=== PATIENT | male | born 1955 | race Caucasian/White ===

== ENCOUNTER 2016-09-14 05:19 | Inpatient (IN) | payer MEDICARE ==
[2016-09-14] VITALS (17 sets, daily range): BP systolic 81–151; BP diastolic 45–88
[~2016-09-14] VITALS: Ht 180.3 cm; Wt 60.8 kg
[~2016-09-14 05:19] MED LIST: ALBU1.25 IH; GABA800T2 PO; LEVO750T9 PO; PRED10TA22 PO
--- OUTSIDE RECORDS SUMMARY | 2016-09-14 05:23 | XMS REPORT | Continuity of Care Document ---
Author Author [facility] Organization [facility] Address Unknown Phone Unavailable Care Team Providers Care Eligibility And Occupancy Interviewer Name Role Phone NO, LOCAL PHYSICIAN PCP Unavailable Insurance Providers Payer Name Policy Number Subscriber Name Relationship [employer] [id number] Nirmal Shah 19 Self / Same As Patient Advance Directives Directive Response Recorded Date/Time Advance Directives No 06/28/16 11:15pm Organ Donor No 06/28/16 11:15pm Resuscitation Status Full Code 06/28/16 11:15pm Chief Complaint and Reason for Visit Chief Complaint COPD EXACERBATION Reason for Visit Asthma exacerbation in COPD Problems Active Problems Medical Problem Onset Date Status Asthma exacerbation in COPD Unknown Acute Medications Current Home Medications Medication Dose Units Route Directions Days/Qty Instructions Start Date Levofloxacin 750 Mg 750 Mg Oral Daily 5 06/29/16 Prednisone 10 Mg 10 Mg Oral Daily 42 Take 6 tabs(60mg)daily,decrease by 1 tab(10mg)every other day. 06/29/16 Albuterol Sulfate 1.25 Mg/3 Ml 1.25 Mg Inhalation Every 6 Hours 60 Past Home Medications Medication Directions Ordered Status Gabapentin 800 Mg Tablet, 800 Mg Oral 06/28/16 Discontinued Social History Social History Problem Response Recorded Date/Time Alcohol Use Denies Use 06/28/2016 11:15pm Recreational Drug Use No 06/28/2016 11:15pm Recent Foreign Travel No 06/28/2016 11:15pm Recent Infectious Disease Exposure No 06/28/2016 11:15pm Hospitalization with Isolation Denies 06/29/2016 1:03pm Smoking Status Current Everyday Smoker 06/28/2016 11:15pm Type Used Cigarettes 06/29/2016 1:03pm Recent Hopitalizations Yes 06/28/2016 11:15pm Hospitalization with Isolation Denies 06/29/2016 1:03pm Query Response Start Date Stop Date Smoking Status Current Everyday Smoker Hospital Discharge Instructions Patient Instructions Physician Instructions New, Converted or Re-Newed RX: Transmitted to Pharmacy Patient Instructions: Maintain O2 at home Take breathing treatments every 4- hours scheduled Stop smoking Discharge Diet: No Restrictions Activity as Tolerated: Yes Care Plan Patient Instructions:: Maintain O2 at homeTake breathing treatments every 4- hours scheduledStop smoking Plan of Care Discharge Date 06/29/16 1:03pm Disposition 01 HOME, SELF-CARE Instructions/Education Provided Chronic Obstructive Pulmonary Disease (GEN) Prescriptions See Medication Section Care Plan and Goals See Discharge Instructions Section Functional Status Query Response Date Recorded Patient Orientation Person Place Time Situation June 29, 2016 1:03pm Comprehension Ability Understands Concepts June 29, 2016 9:33am Allergies, Adverse Reactions, Alerts No known allergies. Immunizations Name Given Type FLU TRIvalent 5 years - Adult 06/29/16 Administered Vital Signs Acute Vital Signs Vital Response Date/Time Temperature (Fahrenheit) 96.0 degrees F (97.6 - 99.5) 06/29/2016 1:00pm Temperature (Calculated Celsius) 35.37890 degrees C (36.4 - 37.5) 06/29/2016 8:19am Temperature Source Tympanic 06/29/2016 1:00pm Pulse Rate (adult) 72 bpm (60 - 90) 06/29/2016 1:00pm Respiratory Rate 18 bpm (12 - 24) 06/29/2016 1:00pm O2 Sat by Pulse Oximetry 95 % (88 - 100) 06/29/2016 1:00pm Blood Pressure 108/56 mm Hg 06/29/2016 1:00pm Blood Pressure Mean 73 mm Hg 06/29/2016 8:19am Pain Numeric Pain Scale 0-No Pain 06/29/2016 1:00pm Height (Feet) 5 feet 06/28/2016 11:15pm Height (Inches) 11.00 inches 06/28/2016 11:15pm Height (Calculated Centimeters) 180.360403 cm 06/28/2016 11:15pm Weight (Pounds) 126 pounds 06/29/2016 12:34am Weight (Ounces) 5.0 oz 06/29/2016 12:34am Weight (Calculated Grams) 46444.387 gm 06/29/2016 12:34am Weight (Calculated Kilograms) 57.902694 kilograms 06/29/2016 12:34am Calculated BMI 17.6 06/28/2016 11:15pm Capillary Refill Capillary Refill Less Than 3 Seconds 06/29/2016 9:33am Results Laboratory Results Test Name Result Units Flags Reference Collection Date/Time Result Date/ Time Comments White Blood Count 9.5 10^3/uL 4.3-11.0 06/28/2016 9:13pm 06/28/2016 9: 23pm Red Blood Count 5.38 10^6/uL 4.35-5.85 06/28/2016 9:13pm 06/28/2016 9: 23pm Hemoglobin 15.8 G/DL 13.3-17.7 06/28/2016 9:13pm 06/28/2016 9:23pm Hematocrit 46 % 40-54 06/28/2016 9:13pm 06/28/2016 9:23pm Mean Corpuscular Volume 86 FL 80-99 06/28/2016 9:13pm 06/28/2016 9: 23pm Mean Corpuscular Hemoglobin 29 PG 25-34 06/28/2016 9:13pm 06/28/2016 9: 23pm Mean Corpuscular Hemoglobin Concent 34 G/DL 32-36 06/28/2016 9:13pm 9:23pm Red Cell Distribution Width 14.0 % 10.0-14.5 06/28/2016 9:13pm 2015 9:23pm Platelet Count 207 10^3/uL 130-400 06/28/2016 9:13pm 06/28/2016 9:23pm Mean Platelet Volume 10.0 FL 7.4-10.4 06/28/2016 9:13pm 06/28/2016 9: 23pm Neutrophils (%) (Auto) 60 % 42-75 06/28/2016 9:13pm 06/28/2016 9:23pm Lymphocytes (%) (Auto) 21 % 12-44 06/28/2016 9:13pm 06/28/2016 9:23pm Monocytes (%) (Auto) 9 % 0-12 06/28/2016 9:13pm 06/28/2016 9:23pm Eosinophils (%) (Auto) 9 % 0-10 06/28/2016 9:13pm 06/28/2016 9:23pm Basophils (%) (Auto) 1 % 0-10 06/28/2016 9:13pm 06/28/2016 9:23pm Neutrophils # (Auto) 5.7 X 10^3 1.8-7.8 06/28/2016 9:13pm 06/28/2016 9: 23pm Lymphocytes # (Auto) 2.0 X 10^3 1.0-4.0 06/28/2016 9:13pm 06/28/2016 9: 23pm Monocytes # (Auto) 0.8 X 10^3 0.0-1.0 06/28/2016 9:13pm 06/28/2016 9: 23pm Eosinophils # (Auto) 0.9 10^3/uL H 0.0-0.3 06/28/2016 9:13pm 06/28/2016 9 :23pm Basophils # (Auto) 0.1 10^3/uL 0.0-0.1 06/28/2016 9:13pm 06/28/2016 9: 23pm Urine Color YELLOW 06/29/2016 12:25am 06/29/2016 12:50am Urine Clarity CLEAR 06/29/2016 12:25am 06/29/2016 12:50am Urine pH 6.5 5-9 06/29/2016 12:25am 06/29/2016 12:50am Urine Specific [place] 1.015 * 1.016-1.022 06/29/2016 12:25am 2015 12:50am Urine Protein 2+ * NEGATIVE 06/29/2016 12:25am 06/29/2016 12:50am Urine Glucose (UA) 2+ * NEGATIVE 06/29/2016 12:25am 06/29/2016 12:50am Urine RBC (Auto) NEGATIVE NEGATIVE 06/29/2016 12:25am 06/29/2016 12: 50am Urine Ketones 1+ * NEGATIVE 06/29/2016 12:25am 06/29/2016 12:50am Urine Nitrite NEGATIVE NEGATIVE 06/29/2016 12:25am 06/29/2016 12: 50am Urine Bilirubin NEGATIVE NEGATIVE 06/29/2016 12:25am 06/29/2016 12: 50am Urine Urobilinogen 1 MG/DL NORMAL 06/29/2016 12:25am 06/29/2016 12: 50am Urine Leukocyte Esterase 1+ * NEGATIVE 06/29/2016 12:25am 06/29/2016 12 :50am Urine RBC RARE /HPF 06/29/2016 12:25am 06/29/2016 12:50am Urine WBC 2-5 /HPF 06/29/2016 12:25am 06/29/2016 12:50am Urine Bacteria TRACE /HPF 06/29/2016 12:25am 06/29/2016 12:50am Urine Squamous Epithelial Cells 0-2 /HPF 06/29/2016 12:25am 2015 12:50am Urine Crystals NONE /LPF 06/29/2016 12:25am 06/29/2016 12:50am Urine Casts PRESENT /LPF 06/29/2016 12:25am 06/29/2016 12:50am Urine Hyaline Casts RARE /LPF 06/29/2016 12:25am 06/29/2016 12:50am Urine Mucus SMALL /LPF * 06/29/2016 12:25am 06/29/2016 12:50am Urine Culture Indicated NO 06/29/2016 12:25am 06/29/2016 12:50am Sodium Level 138 MMOL/L 135-145 06/28/2016 9:13pm 06/28/2016 9:44pm Potassium Level 4.2 MMOL/L 3.6-5.0 06/28/2016 9:13pm 06/28/2016 9:44pm Chloride Level 108 MMOL/L H 98-107 06/28/2016 9:13pm 06/28/2016 9:44pm Carbon Dioxide Level 24 MMOL/L -32 06/28/2016 9:13pm 06/28/2016 9: 44pm Anion Gap 6 MMOL/L 5-14 06/28/2016 9:13pm 06/28/2016 9:44pm Blood Urea Nitrogen 13 MG/DL 7-18 06/28/2016 9:13pm 06/28/2016 9:44pm Creatinine 0.90 MG/DL 0.60-1.30 06/28/2016 9:13pm 06/28/2016 9:44pm BUN/Creatinine Ratio 14 06/28/2016 9:13pm 06/28/2016 9:44pm Estimat Glomerular Filtration Rate > 60 06/28/2016 9:13pm 2015 9:44pm GFR INTERPRETIVE DATA UNITS FOR ESTIMATED GFR (eGFR): mL/min/1.73 M2 REFERENCE RANGE FOR ESTIMATED GFR (eGFR) eGFR NORMAL eGFR >60 MODERATELY DECREASED eGFR 30-59 SEVERLY DECREASED eGFR 15-29 KIDNEY FAILURE <15 (OR DIALYSIS) Glucose Level 128 MG/DL H 70-105 06/28/2016 9:13pm 06/28/2016 9:44pm Calcium Level 8.3 MG/DL L 8.5-10.1 06/28/2016 9:13pm 06/28/2016 9:44pm Total Bilirubin 0.4 MG/DL 0.1-1.0 06/28/2016 9:13pm 06/28/2016 9:44pm Alkaline Phosphatase 57 U/L 40-136 06/28/2016 9:13pm 06/28/2016 9:44pm Aspartate Amino Transf (AST/SGOT) 15 U/L 5-34 06/28/2016 9:13pm 2015 9:44pm Alanine Aminotransferase (ALT/SGPT) 19 U/L 0-55 06/28/2016 9:13pm 06/28 9:44pm Total Protein 6.2 G/DL L 6.4-8.2 06/28/2016 9:13pm 06/28/2016 9:44pm Albumin 3.7 G/DL 3.2-4.5 06/28/2016 9:13pm 06/28/2016 9:44pm Arterial Blood pH 7.34 CL 7.37-7.43 06/28/2016 9:44pm 06/28/2016 9: 58pm RESULTS CALLED TO FELIPE AT 2157. RESULTS READ BACK: YES. Arterial Blood Partial Pressure CO2 46 MMHG H 35-45 06/28/2016 9:44pm 9:58pm Arterial Blood Partial Pressure O2 88 MMHG 79-93 06/28/2016 9:44pm 9:58pm Arterial Blood HCO3 24 MMOL/L 23-27 06/28/2016 9:44pm 06/28/2016 9: 58pm Arterial Blood Total CO2 25.1 MMOL/L 21.0-31.0 06/28/2016 9:44pm 2015 9:58pm Arterial Blood Base Excess -2.4 MMOL/L -2.5-2.5 06/28/2016 9:44pm 06/28 9:58pm Arterial Blood Oxygen Saturation 97 % 94-100 06/28/2016 9:44pm 2015 9:58pm Blood Gas Puncture Site LT RAD 06/28/2016 9:44pm 06/28/2016 9:58pm Last Test YES-POS 06/28/2016 9:44pm 06/28/2016 9:58pm Blood Gas Inspired Oxygen 2L 06/28/2016 9:44pm 06/28/2016 9:58pm Blood Gas Ventilator Setting NO 06/28/2016 9:44pm 06/28/2016 9: 58pm Blood Gas Patient Temperature 98.7 06/28/2016 9:44pm 06/28/2016 9: 58pm Procedures Procedure Status Date Provider(s) Tracing only of electrocardiogram Active 06/28/16 PRICILLA [employer] Encounters Encounter Location Arrival/Admit Date Discharge/Depart Date Attending Provider Discharged Inpatient (obs) [facility] 06/28/16 10:40pm 06/29/16 1:03pm MARYLOU DUNN DO Recent Diagnosis Asthma exacerbation in COPD
[2016-09-14] MEDS ORDERED: GABA-490 PO (05:29)
[2016-09-14] MEDS ORDERED: RT-ALBUTEROL/IPRATROPIUM 3 ML (DUONEB) VIAL INH ONE (05:30)
[2016-09-14] MEDS ORDERED: DEXAMETHASONE 4 MG/ML SDV (DECADRON) IH ONE (05:30)
[2016-09-14] MEDS ORDERED: methylPREDNISolone 125 MG (Solu-MEDROL) VIAL IVP ONE (05:30)
[2016-09-14 05:33] LABS: BASOPHILS # (AUTO) 0.1 10^3/uL (0.0-0.1); BASOPHILS % (AUTO) 1 % (0-10); EOSINOPHILS # (AUTO) 0.7 10^3/uL (0.0-0.3); EOSINOPHILS % (AUTO) 7 % (0-10); LYMPHOCYTES # (AUTO) 2.2 X 10^3 (1.0-4.0); LYMPHOCYTES % (AUTO) 24 % (12-44); MEAN CORPUSCULAR HEMOGLOBIN 29 PG (25-34); MEAN CORPUSCULAR HGB CONC 34 G/DL (32-36); MEAN CORPUSCULAR VOLUME 86 FL (80-99); MEAN PLATELET VOLUME 10.3 FL (7.4-10.4); MONOCYTES # (AUTO) 0.8 X 10^3 (0.0-1.0); MONOCYTES % (AUTO) 8 % (0-12); NEUTROPHILS # (AUTO) 5.5 X 10^3 (1.8-7.8); NEUTROPHILS % (AUTO) 60 % (42-75); PLATELET COUNT 232 10^3/uL (130-400); RED BLOOD COUNT 5.52 10^6/uL (4.35-5.85); RED CELL DISTRIBUTION WIDTH 13.4 % (10.0-14.5); WHITE BLOOD COUNT 9.1 10^3/uL (4.3-11.0)
--- NOTE | 2016-09-14 05:36 | ED Respiratory ---
General Chief Complaint: Respiratory Problems Stated Complaint: SOA Nursing Triage Note: Pt to ED via [facility] from home. Pt c/o SOA starting around 0400 this morning. Pt reports taking neb treatment at home w/ no relief. Pt has hx COPD. Source: patient (TREVOR TIDWELL ) History of Present Illness Time seen by provider: 05:15 Initial Comments PT ARRIVES VIA [facility] FROM HOME C/O SHORTNESS OF BREATH SINCE WAKING APPROXIMATELY 1 1/2 HOURS AGO PT HAD A NEBULIZER TREATMENT WITH ALBUTEROL AT HOME PRIOR TO EMS ARRIVAL. NO FURTHER TREATMENT WAS GIVEN BY EMS PT HAS COPD AND CONTINUES TO SMOKE 1 - 2 1/2 PPD PT HAS HOME O2 WHICH HE USES ONLY AT NIGHT PT HAS HAD A PRODUCTIVE COUGH OF UNKNOWN COLORED SPUTUM PT C/O CHEST DISCOMFORT DUE TO BREATHING DIFFICULTY NO FEVER HAS HISTORY OF SAME MULTIPLE TIMES PT WAS ADMITTED IN [place] FOR COPD EXACERBATION WITH HYPOXIA [facility]--HAS NOT BEEN THERE IN A LONG TIME, BUT GETS ALL OF HIS MEDICATIONS THROUGH THERE (TREVOR TIDWELL DO) Allergies and Home Medications Allergies Coded Allergies: No Known Drug Allergies (Verified , 04/29/07) Home Medications Albuterol Sulfate 1.25 Mg/3 Ml Vial.neb #60 1.25 MG IH Q6H Prescribed by: MARYLOU DUNN on 06/29/16 1233 Gabapentin 400 Mg Capsule Unknown Dose PO DAILY (Reported) Constitutional: no symptoms reported EENTM: no symptoms reported Respiratory: see HPI cough short of breath Cardiovascular: see HPI chest pain Gastrointestinal: no symptoms reported Genitourinary: no symptoms reported Musculoskeletal: no symptoms reported Skin: no symptoms reported Psychiatric/Neurological: No Symptoms Reported Hematologic/Lymphatic: No Symptoms Reported Immunological/Allergic: no symptoms reported (TREVOR TIDWELL DO) Past Cisvrpk-Luvjus-Iouxtq Hx Patient Social History Alcohol Use: Past History (HISTORY OF ABUSE--12 PACK EVERY 1-2 DAYS.) Recreational Drug Use: No (DENIES) Smoking Status: Current Everyday Smoker (UP TO 2 1/2 PPD) Type Used: Cigarettes Recent Foreign Travel: No Contact w/Someone Who Travel: No Recent Infectious Disease Expo: No Recent Hopitalizations: No Physical Abuse Screen: No Sexual Abuse: No (TREVOR TIDWELL DO) Immunizations Up To Date Tetanus Booster (TDap): Less than 5yrs (DIANN,TREVOR K DO) Seasonal Allergies Seasonal Allergies: No (DIANN,TREVOR K DO) Surgeries HX Surgeries: Yes (RIGHT ARM--ABOVE ELBOW TRAUMATIC AMPUTATION 2006) Surgeries: Amputation, Orthopedic, Tonsillectomy (DIANN,TREVOR K DO) Respiratory Hx Respiratory Disorders: Yes Respiratory Disorders: Pneumonia, COPD, Emphysema (DIANN,TREVOR K DO) Cardiovascular Hx Cardiac Disorders: No (DIANN,TREVOR K DO) Neurological Hx Neurological Disorders: Yes Neurological Disorders: Neuropathy (DIANN,TREVOR K DO) Reproductive System Hx Reproductive Disorders: No (DIANN,TREVOR K DO) Genitourinary Hx Genitourinary Disorders: No (DIANN,TREVOR K DO) Gastrointestinal Hx Gastrointestinal Disorders: No (DIANN,TREVOR K DO) Musculoskeletal Hx Musculoskeletal Disorders: Yes (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) Musculoskeletal Disorders: Amputee (DIANN,TREVOR K DO) Endocrine Hx Endocrine Disorders: No (DIANN,TREVOR K DO) HEENT HX ENT Disorders: No (DIANN,TREVOR K DO) Cancer Hx Cancer: No (DIANN,TREVOR K DO) Psychosocial Hx Psychiatric Problems: No (DIANN,TREVOR K DO) Integumentary HX Skin/Integumentary Disorder: No (DIANN,TREVOR K DO) Blood Transfusions Hx Blood Disorders: No (DIANN,TREVOR K DO) Family Medical History Family Medial History: Alzheimer's disease 19 MOTHER Asthma 19 MOTHER (DIANN,TREVOR K DO) Family Medial History: Alzheimer's disease 19 MOTHER Asthma 19 MOTHER (HEVER MARR MD) Physical Exam Vital Signs Vital Sign - Last 12Hours 09/14/16 09/14/16 05:19 05:21 Temp 98.4 Pulse 89 Resp 18 B/P 136/92 Pulse Ox 96 O2 Delivery Nasal Cannula O2 Flow Rate 3 (HEVER MARR MD) Vital Signs Capillary Refill : Less Than 3 Seconds (DIANN,TREVOR K DO) General Appearance: cachetic moderate distress other (DIRTY, MALODOROUS, UNKEMPT, ODOR OF OLD URINE AND REEKS OF CIGARETTES, MODERATE DYSPNEA, BUT CAN TALK IN SHORT SENTENCES) thin HEENT: PERRL/EOMI (GLASSES) Neck: normal inspection Respiratory: respiratory distress (MILD TO MODERATE) decreased breath sounds accessory muscle use wheezing (DIFFUSE BILATERAL WHEEZING) Cardiovascular: normal peripheral pulses regular rate, rhythm no edema no JVD no murmur Gastrointestinal: normal bowel sounds non tender soft Extremities: normal inspection no pedal edema no calf tenderness normal capillary refill 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 as tested no motor/sensory deficits alert oriented x 3 other (ANXIOUS) Skin: normal color warm/dry (DIANN,TREVOR K DO) Progress/Results/Core Measures Results/Orders Lab Results Laboratory Tests Test 09/14/16 05:21 09/14/16 05:48 09/14/16 06:00 Range/Units Activated Partial Thromboplast Time 20 L 24-35 SEC Alanine Aminotransferase (ALT/SGPT) 16 0-55 U/L Albumin 4.1 3.2-4.5 G/DL Alkaline Phosphatase 58 40-136 U/L Anion Gap 13 5-14 MMOL/L Aspartate Amino Transf (AST/SGOT) 16 5-34 U/L B-Type Natriuretic Peptide 19.4 <100.0 PG/ML BUN/Creatinine Ratio 19 Basophils # (Auto) 0.1 0.0-0.1 10^3/uL Basophils (%) (Auto) 1 0-10 % Blood Urea Nitrogen 19 H 7-18 MG/DL Calcium Level 8.7 8.5-10.1 MG/DL Carbon Dioxide Level 24 21-32 MMOL/L Chloride Level 104 98-107 MMOL/L Creatine Kinase MB 4.4 <6.6 NG/ML Creatinine 0.98 0.60-1.30 MG/DL Eosinophils # (Auto) 0.7 H 0.0-0.3 10^3/uL Eosinophils (%) (Auto) 7 0-10 % Estimat Glomerular Filtration Rate > 60 Glucose Level 119 H 70-105 MG/DL Hematocrit 47 40-54 % Hemoglobin 16.2 13.3-17.7 G/DL INR Comment 1.0 0.8-1.4 Lymphocytes # (Auto) 2.2 1.0-4.0 X 10^3 Lymphocytes (%) (Auto) 24 12-44 % Magnesium Level 2.5 H 1.8-2.4 MG/DL Mean Corpuscular Hemoglobin 29 25-34 PG Mean Corpuscular Hemoglobin Concent 34 32-36 G/DL Mean Corpuscular Volume 86 80-99 FL Mean Platelet Volume 10.3 7.4-10.4 FL Monocytes # (Auto) 0.8 0.0-1.0 X 10^3 Monocytes (%) (Auto) 8 0-12 % Neutrophils # (Auto) 5.5 1.8-7.8 X 10^3 Neutrophils (%) (Auto) 60 42-75 % Platelet Count 232 130-400 10^3/uL Potassium Level 3.7 3.6-5.0 MMOL/L Prothrombin Time 13.3 12.2-14.7 SEC Red Blood Count 5.52 4.35-5.85 10^6/uL Red Cell Distribution Width 13.4 10.0-14.5 % Sodium Level 141 135-145 MMOL/L TSH [place] Testing 0.96 0.35-4.94 UIU/ML Total Bilirubin 0.5 0.1-1.0 MG/DL Total Creatine Kinase 162 30-200 U/L Total Protein 6.8 6.4-8.2 G/DL White Blood Count 9.1 4.3-11.0 10^3/uL Last Test YES-POS Arterial Blood Base Excess 0.7 -2.5-2.5 MMOL/L Arterial Blood HCO3 32 H 23-27 MMOL/L Arterial Blood Oxygen Saturation 87 L 94-100 % Arterial Blood Partial Pressure CO2 84 *H 35-45 MMHG Arterial Blood Partial Pressure O2 63 L 79-93 MMHG Arterial Blood Total CO2 34.3 H 21.0-31.0 MMOL/L Arterial Blood pH 7.20 *L 7.37-7.43 Blood Gas Inspired Oxygen 3L Blood Gas Patient Temperature 98.7 Blood Gas Puncture Site RIGHT RADIAL Blood Gas Ventilator Setting NO Lactic Acid Level 1.7 0.5-2.0 MMOL/L (HEVER MARR MD) Medications Given in ED Current Medications Medications Dose Ordered Sig/Selena Route Start Time Stop Time Status Last Admin Dose Admin Albuterol/ Ipratropium 3 ml ONCE ONCE INH 09/14/16 05:30 09/14/16 05:31 DC 09/14/16 05:37 3 ML Dexamethasone Sodium Phosphate 20 mg ONCE ONCE IH 09/14/16 05:30 09/14/16 05:31 DC 09/14/16 05:37 20 MG Lorazepam 1 mg 1 mg ONCE ONCE IVP 09/14/16 05:45 09/14/16 05:46 DC 09/14/16 05:44 1 MG Methylprednisolone Sodium Succinate 125 mg ONCE ONCE IVP 09/14/16 05:30 09/14/16 05:31 DC 09/14/16 05:34 125 MG Sodium Chloride 250 ml @ 0 mls/hr Q0M ONCE IV 09/14/16 05:52 09/14/16 05:53 DC 09/14/16 05:52 999 MLS/HR (HEVER MARR MD) Vital Signs/I&O Vital Sign - Last 12Hours 09/14/16 09/14/16 09/14/16 09/14/16 05:19 05:21 05:38 05:57 Temp 98.4 Pulse 89 104 Resp 18 25 B/P 136/92 Pulse Ox 96 96 97 98 O2 Delivery Nasal Cannula Room Air Nasal Cannula O2 Flow Rate 3 3 3 75 09/14/16 06:20 Pulse 101 Resp 19 O2 Flow Rate 75.00 (HEVER MARR MD) Blood Pressure Mean: 107 Progress Note : Progress Note PT BECAME VERY ANXIOUS AND 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 0600--CARE TURNED OVER TO DR. MARR. ALL STUDIES PENDING (TREVOR TIDWELL DO) ECG Initial ECG Impression Time: 05:33 Initial ECG Rate: 79 Initial ECG Rhythm: Normal Sinus Initial ECG Comparisson: Unchanged (TREVOR TIDWELL DO) Departure Communication Progress Notes 0659 patient shows signs of improvement. He appears much less anxious. He is tolerating his hour-long albuterol treatment well. Given his ABGs he will be admitted to the ICU. Have discussed with Dr. Dunn of the hospitalist service and she accepts in admission (HEVER MARR MD) Impression Impression: Primary Impression: Acute on chronic respiratory failure Disposition: ADMITTED INPATIENT Condition: Improved Decision to Admit Reason: Admit from ER (General) Decision to Admit/Date: Sep 14, 2016 Time/Decision to Admit Time: 07:02 (HEVER MARR MD) Departure-Patient Inst. Referrals: NO,LOCAL PHYSICIAN (PCP/Family) Primary Care Physician TREVOR TIDWELL DO Sep 14, 2016 05:36 HEVER MARR MD Sep 14, 2016 07:03
[2016-09-14 05:44] LABS: PROTHROMBIN TIME PATIENT 13.3 SEC (12.2-14.7)
[2016-09-14] MEDS ORDERED: NS (IVPB) 250 ML ONE (05:44)
[2016-09-14] MEDS ORDERED: LORazepam INJ 2 MG/ML (ATIVAN) VIAL IVP ONE (05:45)
[2016-09-14 05:50] LABS: ABG BASE EXCESS 0.7 MMOL/L (-2.5-2.5); ABG HCO3 32 MMOL/L (23-27); ABG OXYGEN SATURATION 87 % (94-100); ABG PO2 63 MMHG (79-93); ABG TCO2 34.3 MMOL/L (21.0-31.0)
[2016-09-14] MEDS ORDERED: NS (IVPB) 250 ML IV ONE (05:52)
[2016-09-14 05:53] LABS: ALANINE AMINOTRANSFERASE 16 U/L (0-55); ALBUMIN 4.1 G/DL (3.2-4.5); ANION GAP 13 MMOL/L (5-14); ASPARTATE AMINO TRANSFERASE 16 U/L (5-34); BILIRUBIN,TOTAL 0.5 MG/DL (0.1-1.0); BLOOD UREA NITROGEN 19 MG/DL (7-18); BUN/CREATININE RATIO 19; CALCIUM 8.7 MG/DL (8.5-10.1); CARBON DIOXIDE 24 MMOL/L (21-32); CHLORIDE 104 MMOL/L (98-107); CREATINE KINASE 162 U/L (30-200); CREATININE SERUM 0.98 MG/DL (0.60-1.30); GFR ESTIMATED > 60; GLUCOSE 119 MG/DL (70-105); MAGNESIUM 2.5 MG/DL (1.8-2.4); POTASSIUM 3.7 MMOL/L (3.6-5.0); SODIUM 141 MMOL/L (135-145); TOTAL PROTEIN 6.8 G/DL (6.4-8.2)
[2016-09-14 05:54] LABS: ABG PCO2 84 MMHG (35-45); ALLENS TEST YES-POS
[2016-09-14 05:55] LABS: PATIENT TEMP 98.7
--- NOTE | 2016-09-14 07:09 | Diagnostic Imaging Report ---
INDICATION: Severe shortness of breath. Portable chest 6:16 AM FINDINGS: Heart size and pulmonary vascularity are normal. Lungs are clear. There are no effusions or pneumothoraces. IMPRESSION: Negative chest. Dictated by: Dictated on workstation # [id number]
--- NOTE | 2016-09-14 07:47 | Pulmonary Consultation ---
History of Present Illness History of Present Illness Date of Consultation 09/14/16 07:41 Date of Admission History of Present Illness 61yo with hx of severe COPD oxygen dependent presented to ED via EMS secondary to worsening SOB that started around 0400. Pt did take home nebulizer which did not improve symptoms. Pt has had COPDAE in past with hospitalization 06/17. Pt is currently feeling better c/w admission. I am consulted for pulmonary management. Allergies and Home Medications Allergies Coded Allergies: No Known Drug Allergies (Verified , 04/29/07) Home Medications Albuterol Sulfate 1.25 Mg/3 Ml Vial.neb #60 1.25 MG IH Q6H Prescribed by: MARYLOU DUNN on 06/29/16 1233 Gabapentin 400 Mg Capsule Unknown Dose PO DAILY (Reported) Past Hordxbx-Xczcgy-Ivopbf Hx Patient Social History Alcohol Use: Past History (HISTORY OF ABUSE--12 PACK EVERY 1-2 DAYS.) Recreational Drug Use: No (DENIES) Smoking Status: Current Everyday Smoker (UP TO 2 1/2 PPD) Type Used: Cigarettes Recent Foreign Travel: No Contact w/Someone Who Travel: No Recent Infectious Disease Expo: No Recent Hopitalizations: No Physical Abuse Screen: No Sexual Abuse: No Immunizations Up To Date Tetanus Booster (TDap): Less than 5yrs Seasonal Allergies Seasonal Allergies: No Surgeries HX Surgeries: Yes (RIGHT ARM--ABOVE ELBOW TRAUMATIC AMPUTATION 2006) Surgeries: Amputation, Orthopedic, Tonsillectomy Respiratory Hx Respiratory Disorders: Yes Respiratory Disorders: Pneumonia, COPD, Emphysema Cardiovascular Hx Cardiac Disorders: No Neurological Hx Neurological Disorders: Yes Neurological Disorders: Neuropathy Reproductive System Hx Reproductive Disorders: No Genitourinary Hx Genitourinary Disorders: No Gastrointestinal Hx Gastrointestinal Disorders: No Musculoskeletal Hx Musculoskeletal Disorders: Yes (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) Musculoskeletal Disorders: Amputee Endocrine Hx Endocrine Disorders: No HEENT HX ENT Disorders: No Cancer Hx Cancer: No Psychosocial Hx Psychiatric Problems: No Integumentary HX Skin/Integumentary Disorder: No Blood Transfusions Hx Blood Disorders: No Family Medical History Family Medial History: Alzheimer's disease 19 MOTHER Asthma 19 MOTHER Exam Exam Vital Signs Date Time Temp Pulse Resp B/P Pulse Ox O2 Delivery O2 Flow Rate FiO2 09/14/16 06:20 101 19 75.00 09/14/16 05:57 104 25 98 75 09/14/16 05:38 97 Nasal Cannula 3 09/14/16 05:21 98.4 89 18 136/92 96 Room Air 3 09/14/16 05:19 96 Nasal Cannula 3 General Appearance: Moderate Distress Neck: Normal Inspection Non Tender Supple Respiratory: Accessory Muscle Use Decreased Breath Sounds Wheezing Capillary Refill: Less Than 3 Seconds Gastrointestinal: normal bowel sounds non tender soft Neurologic/Psychiatric: Oriented x3 Skin: Normal Color Warm/Dry Results Lab Laboratory Tests 09/14/16 05:21 Assessment/Plan Assessment/Plan COPDAE with acute on chronic respiratory failure -solumedrol 40 Q6 -SVNs -noninvasive ventilation Tobacco dependance -education DIMAS RIOS DO Sep 14, 2016 07:47
[2016-09-14] MEDS ORDERED: RT-ALBUTEROL/IPRATROPIUM 3 ML (DUONEB) VIAL INH PRN (08:00)
[2016-09-14] MEDS ORDERED: CATHETER FLUSH 10 ML SYR IV PRN (08:00)
[2016-09-14] MEDS: NS IV 1000 ML 1,000 ML IV SCH ×2 (08:54→18:58)
[2016-09-14] MEDS: methylPREDNISolone 40 MG/ML (Solu-MEDROL) VIAL IV SCH ×3 (08:54→20:08)
[2016-09-14] MEDS ORDERED: ALBU1.25 NEB (08:58)
--- NOTE | 2016-09-14 10:24 | History & Physical-Hospitalist ---
HPI History of Present Illness: HPI/Chief Complaint CC: Dyspnea HPI: This is a 61-year-old white male with no local physician even though I took care of him on the hospitalist service several months ago for exacerbation of COPD but he is not obtained a primary care provider as of yet that recently stop smoking as a New Year's resolution 2 weeks ago that maintains home oxygen at night and as needed but presented to the emergency room with reports of shortness of breath. He was very critical when he arrived in the ER was unable to even maintain nebulizer treatment cities placed on BiPAP and then had a 1 hour long nebulizer treatment which has improved the patient's status a great deal but still requiring BiPAP and Dr. Navarrete has been consulted. He denies any fever but just started having chills last night because as he went out and overall started feeling worse through the night. Source: patient Exam Limitations: clinical condition (biPAP) Date Seen 09/14/16 Attending Physician Carmita Albert DO PCP No,Local Physician Referring Physician Date of Admission Sep 14, 2016 at 07:10 Home Medications & Allergies Home Medications Reviewed patient Home Medication Reconciliation Form Allergies Coded Allergies: No Known Drug Allergies (Verified , 04/29/07) Past Jgtnevo-Wcpnvp-Qneyhj Hx Patient Social History Marrital Status: single Employed/Student: unemployed Alcohol Use: Past History Recreational Drug Use: No (DENIES) Smoking Status: Former Smoker Type Used: Cigarettes Physical Abuse Screen: No Sexual Abuse: No Recent Foreign Travel: No Contact w/other who traveled: No Recent Hopitalizations: No Recent Infectious Disease Expo: No Immunizations Up To Date Tetanus Booster (TDap): Less than 5yrs Date of Pneumonia Vaccine: Jun 14, 2016 Date of Influenza Vaccine: Jun 14, 2016 Seasonal Allergies Seasonal Allergies: No Surgeries HX Surgeries: Yes (RIGHT ARM--ABOVE ELBOW TRAUMATIC AMPUTATION 2006) Surgeries: Amputation, Orthopedic, Tonsillectomy Respiratory Hx Respiratory Disorders: Yes Respiratory Disorders: COPD, Pneumonia Cardiovascular Hx Cardiovascular Disorders: No Neurological Hx Neurological Disorders: Yes Neurological Disorders: Neuropathy Reproductive System Hx Reproductive Disorders: No Sexually Transmitted Disease: No HIV/AIDS: No Genitourinary Hx Genitourinary Disorders: No Gastrointestinal Hx Gastrointestinal Disorders: No Musculoskeletal Hx Musculoskeletal Disorders: Yes (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) Musculoskeletal Disorders: Amputee Endocrine Hx Endocrine Disorders: No HEENT HX ENT Disorders: No Cancer Hx Cancer: No Psychosocial Hx Psychiatric Problems: No Behavioral Health Disorders: PTSD Integumentary HX Skin/Integumentary Disorder: No Blood Transfusions Hx Blood Disorders: No Adverse Reaction to a Blood Tr: No Family Medical History Family Hx: Alzheimer's disease 19 MOTHER Asthma 19 MOTHER Review of Systems Constitutional: see HPI dizziness fever weakness EENTM: no symptoms reported Respiratory: cough short of breath wheezing Cardiovascular: no symptoms reported Gastrointestinal: no symptoms reported Genitourinary: no symptoms reported Musculoskeletal: no symptoms reported Skin: no symptoms reported Psychiatric/Neurological: Anxiety All Other Systems Reviewed Negative Unless Noted: Yes Physical Exam Physical Exam Vital Signs Vital Sign - Last 12Hours 09/14/16 09/14/16 05:19 05:21 Temp 98.4 Pulse 89 Resp 18 B/P 136/92 Pulse Ox 96 O2 Delivery Nasal Cannula O2 Flow Rate 3 Capillary Refill : Less Than 3 Seconds General Appearance: No Apparent Distress WD/WN Chronically ill Thin Eyes: Bilateral Eye Normal Inspection, Bilateral Eye PERRL HEENT: PERRL/EOMI Normal ENT Inspection Pharynx Normal Neck: Full Range of Motion Normal Inspection Non Tender Supple Carotid Bruit Respiratory: Chest Non Tender Accessory Muscle Use Crackles Decreased Breath Sounds Respiratory Distress Wheezing Cardiovascular: No Edema No Gallop No JVD No Murmur Normal Peripheral Pulses Tachycardia Gastrointestinal: Normal Bowel Sounds No Organomegaly No Pulsatile Mass Non Tender Soft Back: Normal Inspection No CVA Tenderness No Vertebral Tenderness Extremity: Normal Capillary Refill Normal Inspection Normal Range of Motion Non Tender No Calf Tenderness No Pedal Edema Other (right arm amputated) Neurologic/Psychiatric: Alert Oriented x3 No Motor/Sensory Deficits Normal Mood/Affect Skin: Normal Color Warm/Dry Lymphatic: No Adenopathy Results Results/Procedures Lab Laboratory Tests 09/14/16 05:21 Assessment/Plan Admission Diagnosis Assessment: Acute exacerbation of COPD currently on BiPAP in continuous nebulizer treatments requiring pulmonary consultation and ICU admission Recent smoking cessation 2 weeks ago his New Year's resolution Anxiety Noncompliance with medical treatment Prior amputation of the right upper extremity Assessment and Plan Noninvasive ventilator support Dr. Navarrete consultation is appreciated Nebulizer treatments BiPAP IV steroids Monitor closely SCD's Clinical Quality Measures DVT/VTE Risk/Contraindication: Risk Factor Score Per Nursin RFS Level Per Nursing on Admit: 4+=Very High CARMITA ALBERT DO Sep 14, 2016 10:24
[2016-09-14] MEDS: RT-ALBUTEROL/IPRATROPIUM 3 ML (DUONEB) VIAL INH SCH ×4 (10:51→22:03)
[2016-09-14] MEDS: ENOXAPARIN 40 MG/0.4 ML (LOVENOX) SYR SC SCH (11:32)
[2016-09-14 12:32] LABS: ABG BASE EXCESS -0.7 MMOL/L (-2.5-2.5); ABG HCO3 25 MMOL/L (23-27); ABG OXYGEN SATURATION 96 % (94-100); ABG PCO2 45 MMHG (35-45); ABG PH 7.37 (7.37-7.43); ABG PO2 75 MMHG (79-93); ABG TCO2 26.4 MMOL/L (21.0-31.0)
[2016-09-14 12:33] LABS: ALLENS TEST POSITIVE; PATIENT TEMP 98.2
--- NOTE | 2016-09-14 13:59 | Physical Therapy Progress Note ---
Therapy Progress Note Got order for Mr. Shah but orders were unclear. Discussed with nurse Fidel and it is thought that the order was probably for a trapeze over the bed. Instructed the nurse to resend orders with eval and treat if it turns out that the doctor does want PT for this patient. KATHERINE CAMP PT Sep 14, 2016 13:59
[2016-09-15] VITALS (24 sets, daily range): BP systolic 92–135; BP diastolic 45–79
[2016-09-15] MEDS: RT-ALBUTEROL/IPRATROPIUM 3 ML (DUONEB) VIAL INH SCH ×6 (01:54→22:10)
[2016-09-15] MEDS: methylPREDNISolone 40 MG/ML (Solu-MEDROL) VIAL IV SCH ×4 (01:56→19:35)
[2016-09-15] MEDS: NS IV 1000 ML 1,000 ML IV SCH ×2 (04:07→14:00)
[2016-09-15 04:23] LABS: BASOPHILS % (AUTO) 0 % (0-10); EOSINOPHILS % (AUTO) 0 % (0-10); LYMPHOCYTES # (AUTO) 0.5 X 10^3 (1.0-4.0); LYMPHOCYTES % (AUTO) 9 % (12-44); MEAN CORPUSCULAR HEMOGLOBIN 30 PG (25-34); MEAN CORPUSCULAR HGB CONC 35 G/DL (32-36); MEAN CORPUSCULAR VOLUME 86 FL (80-99); MEAN PLATELET VOLUME 10.4 FL (7.4-10.4); MONOCYTES # (AUTO) 0.2 X 10^3 (0.0-1.0); MONOCYTES % (AUTO) 4 % (0-12); NEUTROPHILS # (AUTO) 5.3 X 10^3 (1.8-7.8); NEUTROPHILS % (AUTO) 88 % (42-75); PLATELET COUNT 185 10^3/uL (130-400); RED BLOOD COUNT 4.79 10^6/uL (4.35-5.85); WHITE BLOOD COUNT 6.1 10^3/uL (4.3-11.0)
[2016-09-15 04:49] LABS: ANION GAP 8 MMOL/L (5-14); BLOOD UREA NITROGEN 15 MG/DL (7-18); BUN/CREATININE RATIO 20; CALCIUM 8.6 MG/DL (8.5-10.1); CARBON DIOXIDE 22 MMOL/L (21-32); CHLORIDE 110 MMOL/L (98-107); CREATININE SERUM 0.76 MG/DL (0.60-1.30); GFR ESTIMATED > 60; GLUCOSE 139 MG/DL (70-105); MAGNESIUM 2.3 MG/DL (1.8-2.4); PHOSPHORUS 2.7 MG/DL (2.3-4.7); POTASSIUM 3.9 MMOL/L (3.6-5.0); SODIUM 140 MMOL/L (135-145)
[2016-09-15] MEDS: POTASSIUM CL 10MEQ/50ML IVPB 50 ML IV SCH (05:08)
[2016-09-15] MEDS: MAGNESIUM 1 GM/100 ML IVPB 100 ML IV SCH (05:08)
[2016-09-15] MEDS: KCL 20 MEQ TAB (K-DUR) PO SCH (05:08)
--- NOTE | 2016-09-15 10:19 | Progress Note-Hospitalist ---
Subjective HPI/CC On Admission CC: Dyspnea HPI: This is a 61-year-old white male with no local physician even though I took care of him on the hospitalist service several months ago for exacerbation of COPD but he is not obtained a primary care provider as of yet that recently stop smoking as a New Year's resolution 2 weeks ago that maintains home oxygen at night and as needed but presented to the emergency room with reports of shortness of breath. He was very critical when he arrived in the ER was unable to even maintain nebulizer treatment cities placed on BiPAP and then had a 1 hour long nebulizer treatment which has improved the patient's status a great deal but still requiring BiPAP and Dr. Navarrete has been consulted. He denies any fever but just started having chills last night because as he went out and overall started feeling worse through the night. 09/15/16 progress note: Patient is feeling better on 40 percent via Vapotherm off BiPAP talking in full sentences maintaining saturations greater than 90 percent. He said minimal sputum production and is had no chills or fever. He denies chest pain. Date Seen 09/15/16 Objective Exam Vital Signs Vital Sign - Last 12Hours 09/14/16 09/14/16 09/14/16 05:19 05:21 07:45 Temp 98.4 Pulse 89 Resp 18 B/P 136/92 Pulse Ox 96 O2 Delivery Nasal Cannula O2 Flow Rate 3 FiO2 35 Capillary Refill : Less Than 3 Seconds General Appearance: Anxious Chronically ill Thin Respiratory: No Accessory Muscle Use No Respiratory Distress Other (clear anteriorly deep breathing does induce cough and there is wheezing with cough on expiration scattered rhonchi and no rales are noted.) Cardiovascular: Regular Rate, Rhythm No Edema No Gallop No JVD No Murmur Normal Peripheral Pulses Results/Procedures Lab Laboratory Tests 09/15/16 04:01 Assessment/Plan Assessment and Plan Assess & Plan/Chief Complaint 1. Acute COPD exacerbation likely virally mediated continue bronchodilator therapy and anti-inflammatory therapy. If improvement continues we'll transfer to a floor bed in the morning BRAVO ADAM MD Sep 15, 2016 10:18
[2016-09-15] MEDS: ENOXAPARIN 40 MG/0.4 ML (LOVENOX) SYR SC SCH (11:00)
--- NOTE | 2016-09-15 11:06 | Diagnostic Imaging Report ---
Portable chest is compared to prior study from September 14, 2016. INDICATION: Shortness of breath. FINDINGS: Advanced features of apparent underlying emphysema are again demonstrated. The lungs appear hyperinflated. There is no focal consolidation or evidence of an effusion or pneumothorax. Heart size and mediastinal contours appear appropriate. IMPRESSION: 1. Apparent features of advanced underlying emphysema. No acute superimposed cardiopulmonary process evident. Dictated by: Dictated on workstation # [id number]
[2016-09-16] VITALS (13 sets, daily range): BP systolic 102–149; BP diastolic 49–78
[2016-09-16] MEDS: NS IV 1000 ML 1,000 ML IV SCH (00:20)
[2016-09-16] MEDS: methylPREDNISolone 40 MG/ML (Solu-MEDROL) VIAL IV SCH ×3 (01:48→16:08)
[2016-09-16] MEDS: RT-ALBUTEROL/IPRATROPIUM 3 ML (DUONEB) VIAL INH SCH ×7 (02:11→23:04)
[2016-09-16 04:35] LABS: BASOPHILS % (AUTO) 0 % (0-10); EOSINOPHILS % (AUTO) 0 % (0-10); LYMPHOCYTES # (AUTO) 0.6 X 10^3 (1.0-4.0); LYMPHOCYTES % (AUTO) 6 % (12-44); MEAN CORPUSCULAR HEMOGLOBIN 30 PG (25-34); MEAN CORPUSCULAR HGB CONC 34 G/DL (32-36); MEAN CORPUSCULAR VOLUME 86 FL (80-99); MEAN PLATELET VOLUME 10.2 FL (7.4-10.4); MONOCYTES # (AUTO) 0.5 X 10^3 (0.0-1.0); MONOCYTES % (AUTO) 5 % (0-12); NEUTROPHILS # (AUTO) 9.2 X 10^3 (1.8-7.8); NEUTROPHILS % (AUTO) 90 % (42-75); PLATELET COUNT 191 10^3/uL (130-400); RED BLOOD COUNT 4.48 10^6/uL (4.35-5.85); RED CELL DISTRIBUTION WIDTH 13.3 % (10.0-14.5); WHITE BLOOD COUNT 10.3 10^3/uL (4.3-11.0)
[2016-09-16 04:54] LABS: ANION GAP 10 MMOL/L (5-14); BLOOD UREA NITROGEN 18 MG/DL (7-18); BUN/CREATININE RATIO 23; CALCIUM 8.1 MG/DL (8.5-10.1); CARBON DIOXIDE 18 MMOL/L (21-32); CHLORIDE 113 MMOL/L (98-107); CREATININE SERUM 0.79 MG/DL (0.60-1.30); GFR ESTIMATED > 60; GLUCOSE 111 MG/DL (70-105); MAGNESIUM 2.3 MG/DL (1.8-2.4); PHOSPHORUS 3.2 MG/DL (2.3-4.7); POTASSIUM 3.8 MMOL/L (3.6-5.0); SODIUM 141 MMOL/L (135-145)
[2016-09-16] MEDS: POTASSIUM CL 10MEQ/50ML IVPB 50 ML IV SCH (05:35)
[2016-09-16] MEDS: MAGNESIUM 1 GM/100 ML IVPB 100 ML IV SCH (05:35)
[2016-09-16] MEDS: KCL 20 MEQ TAB (K-DUR) PO SCH (05:35)
--- NOTE | 2016-09-16 09:03 | Progress Note-Hospitalist ---
Subjective HPI/CC On Admission CC: Dyspnea HPI: This is a 61-year-old white male with no local physician even though I took care of him on the hospitalist service several months ago for exacerbation of COPD but he is not obtained a primary care provider as of yet that recently stop smoking as a New Year's resolution 2 weeks ago that maintains home oxygen at night and as needed but presented to the emergency room with reports of shortness of breath. He was very critical when he arrived in the ER was unable to even maintain nebulizer treatment cities placed on BiPAP and then had a 1 hour long nebulizer treatment which has improved the patient's status a great deal but still requiring BiPAP and Dr. Navarrete has been consulted. He denies any fever but just started having chills last night because as he went out and overall started feeling worse through the night. 09/15/16 progress note: Patient is feeling better on 40 percent via Vapotherm off BiPAP talking in full sentences maintaining saturations greater than 90 percent. He said minimal sputum production and is had no chills or fever. He denies chest pain. Date Seen 09/16/16 Subjective/Events-last exam patient reports continued improvement in shortness of breath with decreased cough. He denies chest pain chills or fever. Objective Exam Vital Signs Vital Sign - Last 12Hours 09/14/16 09/14/16 09/14/16 05:19 05:21 07:45 Temp 98.4 Pulse 89 Resp 18 B/P 136/92 Pulse Ox 96 O2 Delivery Nasal Cannula O2 Flow Rate 3 FiO2 35 Capillary Refill : Less Than 3 Seconds General Appearance: No Apparent Distress Respiratory: Chest Non Tender No Accessory Muscle Use No Respiratory Distress Other (mild expiratory wheezing in bases only chest is clear anteriorly. There are some diminishment of breath sounds posteriorly but overall increase in air movement. No rales or rhonchi are noted) Cardiovascular: Regular Rate, Rhythm No Edema No Gallop No JVD No Murmur Normal Peripheral Pulses Results/Procedures Lab Laboratory Tests 09/16/16 04:20 Assessment/Plan Assessment and Plan Assess & Plan/Chief Complaint 1. Acute COPD exacerbation likely virally mediated continue bronchodilator therapy and anti-inflammatory therapy. we will decrease Solu-Medrol to 40 IV every 12 and transfer to the fourth floor. BRAVO ADAM MD Sep 16, 2016 09:02
--- NOTE | 2016-09-16 09:17 | Diagnostic Imaging Report ---
INDICATION: Dyspnea. Comparison is made with prior examination from 09/15/16. FINDINGS: The heart size is normal. Mediastinum is unremarkable. Lungs are clear. There is no pleural effusion or pneumothorax. There is some air-trapping compatible with COPD. IMPRESSION: COPD. No other acute cardiopulmonary abnormality Dictated by: Dictated on workstation # [id number]
--- NOTE | 2016-09-16 10:36 | Diagnostic Imaging Report ---
INDICATION: Dyspnea. Comparison is made with prior examination from 09/16/16. FINDINGS: The heart size, mediastinal configuration, and pulmonary vascularity are within normal limits. There is no pleural effusion, pneumothorax, or pneumonia. The osseous structures are unremarkable. IMPRESSION: No acute cardiopulmonary abnormality. Dictated by: Dictated on workstation # [id number]
[2016-09-16] MEDS: ENOXAPARIN 40 MG/0.4 ML (LOVENOX) SYR SC SCH (11:43)
[2016-09-17] VITALS: BP 140/69
[2016-09-17] MEDS: RT-ALBUTEROL/IPRATROPIUM 3 ML (DUONEB) VIAL INH SCH ×6 (02:09→22:00)
[2016-09-17 04:00] VITALS: BP 147/71
[2016-09-17] MEDS: methylPREDNISolone 40 MG/ML (Solu-MEDROL) VIAL IV SCH (06:17)
--- NOTE | 2016-09-17 07:36 | Pulmonary Progress Note ---
Subjective Subjective/Events-last exam No complications noted. Exam Exam Vital Signs Date Time Temp Pulse Resp B/P Pulse Ox O2 Delivery O2 Flow Rate FiO2 09/17/16 07:04 92 Vapotherm 17.00 45 09/17/16 04:00 96.6 73 18 147/71 97 Nasal Cannula 45.00 17.00 09/17/16 02:29 45.00 17.00 09/17/16 02:09 97 Vapotherm 18.00 45 09/17/16 00:00 97.0 74 18 140/69 96 Nasal Cannula 45.00 18.00 09/16/16 23:04 91 Vapotherm 19.00 40 09/16/16 20:00 94 Nasal Cannula 15.00 30 09/16/16 20:00 98.4 75 24 149/78 94 Nasal Cannula 40.00 19.00 09/16/16 18:48 91 Vapotherm 20.00 40 09/16/16 16:00 96.9 75 18 126/64 91 Nasal Cannula 15.00 09/16/16 14:24 90 Vapotherm 20.00 40 09/16/16 13:00 97.9 94 20 126/74 90 High Flow NC 15.00 09/16/16 11:05 88 Vapotherm 15.00 30 09/16/16 10:10 97.2 75 18 137/65 91 Nasal Cannula 15.00 09/16/16 10:05 Nasal Cannula 15.00 30 09/16/16 09:00 66 20 134/74 93 NIV/CPAP 40.00 16.00 09/16/16 08:00 98.0 NIV/CPAP 40.00 16.00 09/16/16 08:00 94 NIV/CPAP 20.00 40 I & O 09/17/16 07:00 Intake Total 2640 ml Output Total 2125 ml Balance 515 ml General Appearance: No Apparent Distress HEENT: PERRL/EOMI Normal ENT Inspection Pharynx Normal Neck: Full Range of Motion Normal Inspection Non Tender Supple Carotid Bruit Respiratory: Chest Non Tender No Accessory Muscle Use No Respiratory Distress Other (mild expiratory wheezing in bases only chest is clear anteriorly. There are some diminishment of breath sounds posteriorly but overall increase in air movement. No rales or rhonchi are noted) Cardiovascular: Regular Rate, Rhythm No Edema No Gallop No JVD No Murmur Normal Peripheral Pulses Capillary Refill: Less Than 3 Seconds Gastrointestinal: normal bowel sounds non tender soft Extremity: Normal Capillary Refill Normal Inspection Normal Range of Motion Non Tender No Calf Tenderness No Pedal Edema Other (right arm amputated) Neurologic/Psychiatric: Alert Oriented x3 No Motor/Sensory Deficits Normal Mood/Affect Skin: Normal Color Warm/Dry Lymphatic: No Adenopathy Results Lab Laboratory Tests 09/16/16 04:20 Assessment/Plan Assessment/Plan COPDAE with acute on chronic respiratory failure -solumedrol 40 Q12- change to prednisone taper -SVNs -noninvasive ventilation Tobacco dependance -education Clinical Quality Measures DVT/VTE Risk/Contraindication: Risk Factor Score Per Nursin RFS Level Per Nursing on Admit: 4+=Very High DIMAS RIOS DO Sep 17, 2016 07:36
[2016-09-17 08:00] VITALS: BP 138/71
--- NOTE | 2016-09-17 08:12 | Progress Note-Hospitalist ---
Progress Note HPI/CC on Admission CC: Dyspnea HPI: This is a 61-year-old white male with no local physician even though I took care of him on the hospitalist service several months ago for exacerbation of COPD but he is not obtained a primary care provider as of yet that recently stop smoking as a New Year's resolution 2 weeks ago that maintains home oxygen at night and as needed but presented to the emergency room with reports of shortness of breath. He was very critical when he arrived in the ER was unable to even maintain nebulizer treatment cities placed on BiPAP and then had a 1 hour long nebulizer treatment which has improved the patient's status a great deal but still requiring BiPAP and Dr. Navarrete has been consulted. He denies any fever but just started having chills last night because as he went out and overall started feeling worse through the night. 09/15/16 progress note: Patient is feeling better on 40 percent via Vapotherm off BiPAP talking in full sentences maintaining saturations greater than 90 percent. He said minimal sputum production and is had no chills or fever. He denies chest pain. Progress Notes/Assess & Plan Date Seen 09/17/16 Admission Dx/Process Assessment: Acute exacerbation of COPD currently on BiPAP in continuous nebulizer treatments requiring pulmonary consultation and ICU admission Recent smoking cessation 2 weeks ago his New Year's resolution Anxiety Noncompliance with medical treatment Prior amputation of the right upper extremity Diagonsis/Assessment & Plan Patient doing well overall but still on high flow oxygen I conferred with Dr. Navarrete who is working on prednisone taper dose and working on weaning down O2 Denied having any bowel movement since admitted No fever, pleasant, oriented 3 Regular rate and rhythm, clear to auscultation bilaterally but decreased breath sounds all blanco no changes from prior but improved wheezing No edema Assessment: Acute exacerbation of COPD currently on BiPAP in continuous nebulizer treatments requiring pulmonary consultation and ICU admission now on floor improved but slow Recent smoking cessation 2 weeks ago his New Year's resolution Anxiety Noncompliance with medical treatment Prior amputation of the right upper extremity constipation Plan: Noninvasive ventilator support DC and on high flow O2 weaning now Dr. Navarrete consultation is appreciated Nebulizer treatments BiPAP IV steroids Monitor closely SCD's Bowel regimen MARYLOU DUNN DO Sep 17, 2016 08:12
--- NOTE | 2016-09-17 08:31 | Diagnostic Imaging Report ---
INDICATION: Dyspnea. Frontal chest obtained at 4:49 a.m. and compared to 09/16/2016. Heart is normal in size. Mediastinal silhouette is unremarkable. There is hyperinflation compatible with COPD. There is no acute infiltrate or pneumothorax or pleural fluid. IMPRESSION: Hyperinflation compatible with COPD. No acute consolidation or pleural fluid. Dictated by: Dictated on workstation # [id number]
[2016-09-17] MEDS: LACTULOSE SYRUP 10GM/15ML (ENULOSE) 30ML UDC PO SCH ×2 (08:50→20:10)
[2016-09-17] MEDS: predniSONE 10 MG TAB PO SCH (08:50)
[2016-09-17] MEDS: SENNA W/DOCUSATE (SENOKOT S) TABLET PO SCH ×2 (08:50→20:10)
[2016-09-17] MEDS: ENOXAPARIN 40 MG/0.4 ML (LOVENOX) SYR SC SCH (10:51)
[2016-09-17 12:00] VITALS: BP 119/62
[2016-09-17 16:10] VITALS: BP 121/65
[2016-09-17 20:29] VITALS: BP 117/59
[2016-09-18 00:05] VITALS: BP 125/63
[2016-09-18] MEDS: RT-ALBUTEROL/IPRATROPIUM 3 ML (DUONEB) VIAL INH SCH ×3 (02:05→11:03)
[2016-09-18 04:30] VITALS: BP 99/58
--- NOTE | 2016-09-18 07:11 | Pulmonary Progress Note ---
Subjective Subjective/Events-last exam Pt appears to be improved. Exam Exam Vital Signs Date Time Temp Pulse Resp B/P Pulse Ox O2 Delivery O2 Flow Rate FiO2 09/18/16 04:30 96.4 74 18 99/58 95 Nasal Cannula 40.00 15.00 09/18/16 02:05 94 Nasal Cannula 5.00 09/18/16 00:05 97.1 80 20 125/63 96 Nasal Cannula 40.00 15.00 09/17/16 22:02 92 Nasal Cannula 5.00 09/17/16 20:29 97.0 90 16 117/59 93 Nasal Cannula 45.00 17.00 09/17/16 20:20 Nasal Cannula 5.00 3 09/17/16 18:37 93 Nasal Cannula 5.00 09/17/16 16:10 97.1 76 16 121/65 93 Nasal Cannula 45.00 17.00 09/17/16 13:41 94 Nasal Cannula 5.00 09/17/16 12:00 97.3 73 20 119/62 93 Nasal Cannula 15.00 09/17/16 10:26 91 Nasal Cannula 5.00 09/17/16 08:00 97.4 65 16 138/71 95 Nasal Cannula 45.00 17.00 09/17/16 08:00 92 Nasal Cannula 5.00 09/17/16 07:56 89 Vapotherm 17.00 25 I & O 09/18/16 07:00 Intake Total 1410 ml Output Total 2505 ml Balance -1095 ml General Appearance: No Apparent Distress HEENT: PERRL/EOMI Normal ENT Inspection Pharynx Normal Neck: Full Range of Motion Normal Inspection Non Tender Supple Carotid Bruit Respiratory: Chest Non Tender No Accessory Muscle Use No Respiratory Distress Other (mild expiratory wheezing in bases only chest is clear anteriorly. There are some diminishment of breath sounds posteriorly but overall increase in air movement. No rales or rhonchi are noted) Cardiovascular: Regular Rate, Rhythm No Edema No Gallop No JVD No Murmur Normal Peripheral Pulses Capillary Refill: Less Than 3 Seconds Gastrointestinal: normal bowel sounds non tender soft Extremity: Normal Capillary Refill Normal Inspection Normal Range of Motion Non Tender No Calf Tenderness No Pedal Edema Other (right arm amputated) Neurologic/Psychiatric: Alert Oriented x3 No Motor/Sensory Deficits Normal Mood/Affect Skin: Normal Color Warm/Dry Lymphatic: No Adenopathy Assessment/Plan Assessment/Plan COPDAE with acute on chronic respiratory failure - prednisone taper -SVNs -Pt has home oxygen but needs evaluated for portable oxygen. Will have RT do oxygen testing. Tobacco dependance -education PT is ok for discharge from pulmonary standpoint with prednisone taper and Advair and rescue INH. . Clinical Quality Measures DVT/VTE Risk/Contraindication: Risk Factor Score Per Nursin RFS Level Per Nursing on Admit: 4+=Very High DIMAS RIOS DO Sep 18, 2016 07:11
[2016-09-18 08:00] VITALS: BP 117/62
[2016-09-18] MEDS ORDERED: RT-ADVAIR HFA 115/21 MCG PER PUFF IH SCH (08:00)
--- NOTE | 2016-09-18 08:33 | Diagnostic Imaging Report ---
Indication: Dyspnea. Discussion: Single portable upright view of the chest was obtained, comparison 09/17/2016. Underlying COPD is stable. Stable normal heart size. No focal consolidation, pleural fluid, or pneumothorax. Postoperative changes are again noted within the right shoulder. Impression: 1. Stable changes of COPD. Dictated by: Dictated on workstation # [id number]
[2016-09-18] MEDS ORDERED: PRED10TA22 PO (09:31)
[2016-09-18] MEDS ORDERED: FLUT12AE4 IH (09:31)
--- NOTE | 2016-09-18 09:33 | Discharge Instructions ---
Discharge Instructions Discharge Medications New, Converted or Re-Newed RX: Transmitted to Pharmacy New Medications: Prednisone (Prednisone) 10 Mg Tab.ds.pk 10 MG PO DAILY Take 6 tabs(60mg)daily,decrease by 1 tab(10mg)every other day. # 42 PKG Fluticasone/Salmeterol (Advair Hfa 115-21 Mcg Inhaler) 12 Gm Hfa.aer.ad 2 PUFF IH BID@ #1 GM Continued Medications: Albuterol Sulfate (Albuterol Sulfate) 1.25 Mg/3 Ml Vial.neb 1.25 MG NEB Q6H PRN SHORTNESS OF BREATH EACH Patient Instructions Goal/Follow Up Appt: Obtain appt with [facility] to establish care Dr Navarrete in 2 weeks Activity & Diet Discharge Diet: No Restrictions Activity as Tolerated: Yes MARYLOU DUNN DO Sep 18, 2016 09:32
[2016-09-18] MEDS: LACTULOSE SYRUP 10GM/15ML (ENULOSE) 30ML UDC PO SCH (09:45)
[2016-09-18] MEDS: predniSONE 10 MG TAB PO SCH (09:45)
[2016-09-18] MEDS: SENNA W/DOCUSATE (SENOKOT S) TABLET PO SCH (09:45)
[2016-09-18] MEDS: ENOXAPARIN 40 MG/0.4 ML (LOVENOX) SYR SC SCH (11:01)
[2016-09-18 12:00] VITALS: BP 106/59
[2016-09-18 14:10] VITALS: BP 106/59
--- NOTE | 2016-09-26 11:55 | Discharge Summary-Hospitalist ---
Diagnosis/Chief Complaint Date of Admission Sep 14, 2016 at 07:10 Date of Discharge Sep 18, 2016 at 14:25 Discharge Date: Sep 18, 2016 Admission Diagnosis Assessment: Acute exacerbation of COPD currently on BiPAP in continuous nebulizer treatments requiring pulmonary consultation and ICU admission Recent smoking cessation 2 weeks ago his New Year's resolution Anxiety Noncompliance with medical treatment Prior amputation of the right upper extremity Discharge Diagnosis Assessment: Acute exacerbation of COPD currently on BiPAP in continuous nebulizer treatments requiring pulmonary consultation and ICU admission now on floor improved but slow Recent smoking cessation 2 weeks ago his New Year's resolution Anxiety Noncompliance with medical treatment Prior amputation of the right upper extremity constipation Patient doing well overall but still on high flow oxygen I conferred with Dr. Navarrete who is working on prednisone taper dose and working on weaning down O2 Denied having any bowel movement since admitted No fever, pleasant, oriented 3 Regular rate and rhythm, clear to auscultation bilaterally but decreased breath sounds all blanco no changes from prior but improved wheezing No edema Assessment: Acute exacerbation of COPD currently on BiPAP in continuous nebulizer treatments requiring pulmonary consultation and ICU admission now on floor improved but slow Recent smoking cessation 2 weeks ago his New Year's resolution Anxiety Noncompliance with medical treatment Prior amputation of the right upper extremity constipation Plan: Noninvasive ventilator support DC and on high flow O2 weaning now Dr. Navarrete consultation is appreciated Nebulizer treatments BiPAP IV steroids Monitor closely SCD's Bowel regimen Reason Hospital Visit/Course CC: Dyspnea HPI: This is a 61-year-old white male with no local physician even though I took care of him on the hospitalist service several months ago for exacerbation of COPD but he is not obtained a primary care provider as of yet that recently stop smoking as a New Year's resolution 2 weeks ago that maintains home oxygen at night and as needed but presented to the emergency room with reports of shortness of breath. He was very critical when he arrived in the ER was unable to even maintain nebulizer treatment cities placed on BiPAP and then had a 1 hour long nebulizer treatment which has improved the patient's status a great deal but still requiring BiPAP and Dr. Navarrete has been consulted. He denies any fever but just started having chills last night because as he went out and overall started feeling worse through the night. 09/15/16 progress note: Patient is feeling better on 40 percent via Vapotherm off BiPAP talking in full sentences maintaining saturations greater than 90 percent. He said minimal sputum production and is had no chills or fever. He denies chest pain. Hospital course: Patient was admitted and placed on BiPAP due to exacerbation of COPD due to recent bronchitis episode in recent smoking cessation. Pulmonary consultation ensued and patient overall improved immensely with noninvasive ventilator support. Inhaled corticosteroid was started along with IV steroids with good results. Home oxygen was evaluated of which she met criteria for continuous and said to just as needed and at nighttime that he had previously and he was counseled to obtain primary care provider establishment of care for improved continuity of medical management. Overall prognosis poor considering the severity of his COPD and continued smoking cessation was imperative. Discharge Summary Discharge Physical Examination Allergies: Coded Allergies: No Known Drug Allergies (Verified , 04/29/07) Hospital Course Labs (last 24 hrs) Microbiology 09/14/16 Blood Culture - Final, Complete No growth 09/14/16 MRSA Screen - Final, Complete MRSA not isolated Discharge Home Medications: Active Scripts Active Prednisone 10 Mg Tab.ds.pk 10 Mg PO DAILY Take 6 tabs(60mg)daily,decrease by 1 tab(10mg)every other day. Advair Hfa 115-21 Mcg Inhaler (Fluticasone/Salmeterol) 12 Gm Hfa.aer.ad 2 Puff IH BID@08,20 Reported Albuterol Sulfate 1.25 Mg/3 Ml Vial.neb 1.25 Mg NEB Q6H PRN Instructions to patient/family Please see electonic discharge instructions given to patient. Clinical Quality Measures DVT/VTE Risk/Contraindication: Risk Factor Score Per Nursin RFS Level Per Nursing on Admit: 4+=Very High MARYLOU DUNN DO Sep 26, 2016 11:55
== END 2016-09-18 14:25 | disposition home health service (06) | DRG 189 ==
LOC: EDUNIT# 05:19 → ER 05:20 → ICU 07:10 → 4TH 09-16 10:20
PROVIDERS: ADMIT Internal Medicine; ATTEND Internal Medicine
DX: J96.20 Acute and chronic respiratory failure, unspecified whether with hypoxia or hypercapnia (principal); J44.1 Chronic obstructive pulmonary disease with (acute) exacerbation; B34.9 Viral infection, unspecified; R64 Cachexia; F41.9 Anxiety disorder, unspecified; F43.10 Post-traumatic stress disorder, unspecified; K59.00 Constipation, unspecified; G62.9 Polyneuropathy, unspecified; Z99.81 Dependence on supplemental oxygen; Z87.891 Personal history of nicotine dependence; Z91.19 Patient's noncompliance with other medical treatment and regimen; Z89.221 Acquired absence of right upper limb above elbow
CPT/HCPCS: 36415; 71010; 80048; 80053; 82550; 82553; 82805; 83605; 83735; 83880; 84100; 84443; 85025; 85610; 85730; 87040; 87081; 87804; 93005; 93041; 94640; 94660; 94664; 94760; 94761; 96374; 96375

== ENCOUNTER → 2016-10-19 | Outpatient (CLI) | payer MEDICARE ==
[~2016-10-19] MED LIST changes: +ALBU1.25 NEB; +ASPI325T32 PO; +CEFD300C3 PO; +FLUT12AE4 IH; +GABA-490 PO; +GABA800T PO; +PRD20T PO; +RT-ALBUTEROL SULF 2.5 MG/3 ML PRE-MIX VIAL INH ONE
--- OUTSIDE RECORDS SUMMARY | 2016-10-19 13:37 | XMS REPORT | Continuity of Care Document ---
Author Author [facility] Organization [facility] Address Unknown Phone Unavailable Care Team Providers Care Director Recreation Name Role Phone NO, LOCAL PHYSICIAN PCP Unavailable Insurance Providers Payer Name Policy Number Subscriber Name Relationship [employer] [id number] Nirmal Sen 19 Self / Same As Patient Advance Directives Directive Response Recorded Date/Time Advance Directives No 09/14/16 7:45am Health Care Power of Real Estate Teacher No 09/14/16 7:45am Organ Donor No 09/14/16 7:45am Resuscitation Status Full Code 09/14/16 7:45am Chief Complaint and Reason for Visit Chief Complaint COPD/ RESP FAILURE Reason for Visit Asthma exacerbation in COPD RESPIRATORY FAILURE, UNSP, UNSP W HYPOXIA OR HYPERCAPNIA Problems Active Problems Medical Problem Onset Date Status Acute on chronic respiratory failure Unknown Acute Asthma exacerbation in COPD Unknown Acute RESPIRATORY FAILURE, UNSP, UNSP W HYPOXIA OR HYPERCAPNIA Unknown Acute Medications Current Home Medications Medication Dose Units Route Directions Days/Qty Instructions Start Date Albuterol Sulfate 1.25 Mg/3 Ml 1.25 Mg Nebullizer Every 6 Hours as needed for Shortness Of Breath 09/14/16 Fluticasone/Salmeterol 12 Gm 2 Puff Inhalation Bid@08,20 1 09/18/16 Prednisone 10 Mg 10 Mg Oral Daily 42 Take 6 tabs(60mg)daily,decrease by 1 tab(10mg)every other day. 09/18/16 Past Home Medications Medication Directions Ordered Status Gabapentin 800 Mg Tablet, 800 Mg Oral 06/28/16 Discontinued Levofloxacin 750 Mg Tablet, 750 Mg Oral Daily 06/29/16 Discontinued Prednisone 10 Mg Tab.ds.pk, 10 Mg Oral Daily 06/29/16 Discontinued Albuterol Sulfate 1.25 Mg/3 Ml Vial.neb, 1.25 Mg Inhalation Every 6 Hours Discontinued Gabapentin 400 Mg Capsule, Unknown Dose Oral Daily 09/14/16 Discontinued Social History Social History Problem Response Recorded Date/Time Alcohol Use Past History 09/14/2016 7:45am Recreational Drug Use N DENIES 09/14/2016 7:45am Recent Foreign Travel No 09/14/2016 7:45am Recent Infectious Disease Exposure No 09/14/2016 7:45am Hospitalization with Isolation Denies 09/18/2016 2:25pm Sexually Transmitted Disease No 09/14/2016 7:45am HIV/AIDS No 09/14/2016 7:45am Smoking Status Former Smoker 09/14/2016 7:45am Type Used Cigarettes 09/18/2016 2:25pm Recent Hopitalizations No 09/14/2016 7:45am Sexually Transmitted Disease No 09/14/2016 7:45am Hospitalization with Isolation Denies 09/18/2016 2:25pm Query Response Start Date Stop Date Smoking Status Former Smoker Hospital Discharge Instructions Patient Instructions Physician Instructions New, Converted or Re-Newed RX: Transmitted to Pharmacy Goal/Follow Up Appt: Obtain appt with [facility] to establish care Dr Navarrete in 2 weeks Discharge Diet: No Restrictions Activity as Tolerated: Yes Care Plan Goal:: Obtain appt with [facility] to establish Syeda Navarrete in 2 weeks Plan of Care Discharge Date 09/18/16 2:25pm Disposition 01 HOME, SELF-CARE Instructions/Education Provided Chronic Obstructive Pulmonary Disease (COPD), Including Emphysema Forms Provided PDI Medical Prescriptions See Medication Section Referrals (Unspecified) - Series Order Reason(s) for Referral: RESPIRATORY FAILURE, UNSP, UNSP W HYPOXIA OR HYPERCAPNIA DIMAS NAVARRETE DO (Unspecified) - 10/11/16 Address: [address] [place] [address] [place] [address] Reason(s) for Referral: 2:30PM EMMA ESPINOZA APRN (Unspecified) - 09/25/16 Address: [address] [place] [id number] Reason(s) for Referral: 4:00PM Care Plan and Goals See Discharge Instructions Section Functional Status Query Response Date Recorded Patient Orientation Person Place Time Situation September 18, 2016 2:25pm Comprehension Ability Understands Concepts September 17, 2016 8:20pm Allergies, Adverse Reactions, Alerts No known allergies. Immunizations No immunization records. Vital Signs Acute Vital Signs Vital Response Date/Time Temperature (Fahrenheit) 97.6 degrees F (97.6 - 99.5) 09/18/2016 2:10pm Temperature (Calculated Celsius) 36.74233 degrees C (36.4 - 37.5) 09/18/2016 12:00pm Temperature Source Tympanic 09/18/2016 2:10pm Pulse Rate (adult) 61 bpm (60 - 90) 09/18/2016 2:10pm Respiratory Rate 24 bpm (12 - 24) 09/18/2016 2:10pm O2 Sat by Pulse Oximetry 95 % (88 - 100) 09/18/2016 2:10pm Blood Pressure 106/59 mm Hg 09/18/2016 2:10pm Blood Pressure Mean 75 mm Hg 09/18/2016 12:00pm Pain Numeric Pain Scale 0-No Pain 09/18/2016 2:10pm Height (Feet) 5 feet 09/14/2016 7:45am Height (Inches) 11.00 inches 09/14/2016 7:45am Height (Calculated Centimeters) 180.559975 cm 09/14/2016 7:45am Weight (Pounds) 134 pounds 09/16/2016 6:10am Weight (Ounces) 1.0 oz 09/16/2016 6:10am Weight (Calculated Grams) 56146.728 gm 09/16/2016 6:10am Weight (Calculated Kilograms) 60.980074 kilograms 09/16/2016 6:10am Calculated BMI 18.0 09/14/2016 7:45am Capillary Refill Capillary Refill Less Than 3 Seconds 09/17/2016 8:20pm Results Laboratory Results Test Name Result Units Flags Reference Collection Date/Time Result Date/ Time Comments White Blood Count 10.3 10^3/uL 4.3-11.0 09/16/2016 4:20am 09/16/2016 4: 36am Red Blood Count 4.48 10^6/uL 4.35-5.85 09/16/2016 4:09/16/2016 4: 36am Hemoglobin 13.3 G/DL 13.3-17.7 09/16/2016 4:09/16/2016 4:36am Hematocrit 39 % L 40-54 09/16/2016 4:09/16/2016 4:36am Mean Corpuscular Volume 86 FL 80-99 09/16/2016 4:09/16/2016 4: 36am Mean Corpuscular Hemoglobin 30 PG 25-34 09/16/2016 4:09/16/2016 4: 36am Mean Corpuscular Hemoglobin Concent 34 G/DL 32-36 09/16/2016 4: 4:36am Red Cell Distribution Width 13.3 % 10.0-14.5 09/16/2016 4:2016 4:36am Platelet Count 191 10^3/uL 130-400 09/16/2016 4:09/16/2016 4:36am Mean Platelet Volume 10.2 FL 7.4-10.4 09/16/2016 4:09/16/2016 4: 36am Neutrophils (%) (Auto) 90 % H 42-75 09/16/2016 4:09/16/2016 4:36am Lymphocytes (%) (Auto) 6 % L 12-44 09/16/2016 4:09/16/2016 4:36am Monocytes (%) (Auto) 5 % 0-12 09/16/2016 4:09/16/2016 4:36am Eosinophils (%) (Auto) 0 % 0-10 09/16/2016 4:09/16/2016 4:36am Basophils (%) (Auto) 0 % 0-10 09/16/2016 4:09/16/2016 4:36am Neutrophils # (Auto) 9.2 X 10^3 H 1.8-7.8 09/16/2016 4:09/16/2016 4: 36am Lymphocytes # (Auto) 0.6 X 10^3 L 1.0-4.0 09/16/2016 4:09/16/2016 4: 36am Monocytes # (Auto) 0.5 X 10^3 0.0-1.0 09/16/2016 4:09/16/2016 4: 36am Eosinophils # (Auto) 0.0 10^3/uL 0.0-0.3 09/16/2016 4:09/16/2016 4 :36am Basophils # (Auto) 0.0 10^3/uL 0.0-0.1 09/16/2016 4:09/16/2016 4: 36am Prothrombin Time 13.3 SEC 12.2-14.7 09/14/2016 5:09/14/2016 5: 50am INR Comment 1.0 0.8-1.4 09/14/2016 5:09/14/2016 5:50am INTERPRETIVE DATA SUGGESTED THERAPEUTIC RANGE FOR INR'S: VENOUS THROMBOSIS, PULMONARY EMBOLISM, OR PREVENTION OF SYSTEMIC EMBOLISM (EG. IN ATRIAL FIBRILLATION): 2.0 - 3.0 MECHANICAL PROSTHETIC HEART VALVES: 2.5 - 3.5* *NOTE: INR'S UP TO 4.5 MAY BE NECESSARY IN SELECTED GROUPS OF HIGH RISK PATIENTS. [employer] [employer] CONSENSUS CONFERENCE ON ANTITHROMBOTIC THERAPY (2000). Activated Partial Thromboplast Time 20 SEC L 24-35 09/14/2016 5: 5:50am Sodium Level 141 MMOL/L 135-145 09/16/2016 4:09/16/2016 5:06am Potassium Level 3.8 MMOL/L 3.6-5.0 09/16/2016 4:09/16/2016 5:06am Chloride Level 113 MMOL/L H 98-107 09/16/2016 4:09/16/2016 5:06am Carbon Dioxide Level 18 MMOL/L L 21-32 09/16/2016 4:09/16/2016 5: 06am Anion Gap 10 MMOL/L 5-14 09/16/2016 4:09/16/2016 5:06am Blood Urea Nitrogen 18 MG/DL 7-18 09/16/2016 4:09/16/2016 5:06am Creatinine 0.79 MG/DL 0.60-1.30 09/16/2016 4:09/16/2016 5:06am BUN/Creatinine Ratio 23 09/16/2016 4:09/16/2016 5:06am Estimat Glomerular Filtration Rate > 60 09/16/2016 4:2016 5:06am GFR INTERPRETIVE DATA UNITS FOR ESTIMATED GFR (eGFR): mL/min/1.73 M2 REFERENCE RANGE FOR ESTIMATED GFR (eGFR) eGFR NORMAL eGFR >60 MODERATELY DECREASED eGFR 30-59 SEVERLY DECREASED eGFR 15-29 KIDNEY FAILURE <15 (OR DIALYSIS) Glucose Level 111 MG/DL H 70-105 09/16/2016 4:09/16/2016 5:06am Calcium Level 8.1 MG/DL L 8.5-10.1 09/16/2016 4:09/16/2016 5:06am Phosphorus Level 3.2 MG/DL 2.3-4.7 09/16/2016 4:09/16/2016 5:06am Magnesium Level 2.3 MG/DL 1.8-2.4 09/16/2016 4:09/16/2016 5:06am Total Bilirubin 0.5 MG/DL 0.1-1.0 09/14/2016 5:09/14/2016 5:55am Alkaline Phosphatase 58 U/L 40-136 09/14/2016 5:09/14/2016 5:55am Aspartate Amino Transf (AST/SGOT) 16 U/L 5-34 09/14/2016 5:2016 5:55am Alanine Aminotransferase (ALT/SGPT) 16 U/L 0-55 09/14/2016 5:09/14 5:55am Total Creatine Kinase 162 U/L 30-200 09/14/2016 5:09/14/2016 5: 55am Creatine Kinase MB 4.4 NG/ML <6.6 09/14/2016 5:09/14/2016 6:14am B-Type Natriuretic Peptide 19.4 PG/ML <100.0 09/14/2016 5:2016 6:03am Total Protein 6.8 G/DL 6.4-8.2 09/14/2016 5:09/14/2016 5:55am Albumin 4.1 G/DL 3.2-4.5 09/14/2016 5:21am 09/14/2016 5:55am Lactic Acid Level 1.7 MMOL/L 0.5-2.0 09/14/2016 6:00am 09/14/2016 6: 30am Lactic acid levels can appear lower than actual values in patients receiving NAC (N-Acetyl Cysteine). TSH [place] Testing 0.96 UIU/ML 0.35-4.94 09/14/2016 5:21am 09/14/2016 6:14am Arterial Blood pH 7.37 7.37-7.43 09/14/2016 12:30pm 09/14/2016 12: 33pm Arterial Blood Partial Pressure CO2 45 MMHG 35-45 09/14/2016 12:30pm 12:33pm Arterial Blood Partial Pressure O2 75 MMHG L 79-93 09/14/2016 12:30pm 12:33pm Arterial Blood HCO3 25 MMOL/L 23-27 09/14/2016 12:30pm 09/14/2016 12: 33pm Arterial Blood Total CO2 26.4 MMOL/L 21.0-31.0 09/14/2016 12:30pm 09/14 12:33pm Arterial Blood Base Excess -0.7 MMOL/L -2.5-2.5 09/14/2016 12:30pm 12:33pm Arterial Blood Oxygen Saturation 96 % 94-100 09/14/2016 12:30pm 2016 12:33pm Blood Gas Puncture Site LEFT RADIAL 09/14/2016 12:30pm 09/14/2016 12:33pm Last Test POSITIVE 09/14/2016 12:30pm 09/14/2016 12:33pm Blood Gas Inspired Oxygen 24% 09/14/2016 12:30pm 09/14/2016 12: 33pm Blood Gas Ventilator Setting NO 09/14/2016 12:30pm 09/14/2016 12: 33pm Blood Gas Patient Temperature 98.2 09/14/2016 12:30pm 09/14/2016 12 :33pm Microbiology Results Procedure Source Result Collection Date/Time Result Date/Time Blood Culture Peripheral, Lt Ac No growth 09/14/2016 6:07am 09/15/2016 4: 07pm Blood Culture Peripheral, Left Wrist No growth 09/14/2016 6:00am 2016 4:07pm MRSA Screen Nasal MRSA not isolated 09/14/2016 8:30am 09/15/2016 4:08pm Procedures Procedure Status Date Provider(s) Tracing only of electrocardiogram Completed 09/14/16 TREVOR TIDWELL DO Encounters Encounter Location Arrival/Admit Date Discharge/Depart Date Attending Provider Discharged Inpatient [facility] 09/14/16 7:10am 2:25pm MARYLOU DUNN DO Recent Diagnosis Asthma exacerbation in COPD RESPIRATORY FAILURE, UNSP, UNSP W HYPOXIA OR HYPERCAPNIA
== END ==
LOC: RT 13:33
PROVIDERS: ATTEND Nurse Practitioner Family
DX: J45.909 Unspecified asthma, uncomplicated (principal); J44.9 Chronic obstructive pulmonary disease, unspecified; R09.02 Hypoxemia; Z87.891 Personal history of nicotine dependence
CPT/HCPCS: 94060; 94640; 94726; 94729

== ENCOUNTER 2016-12-17 23:35 | Inpatient (IN) | payer MEDICARE ==
[~2016-12-17] VITALS: Ht 180.3 cm; Wt 55.9 kg
[~2016-12-17 23:35] MED LIST changes: -ASPI325T32 PO; -CEFD300C3 PO; -GABA800T PO; -PRD20T PO; -RT-ALBUTEROL SULF 2.5 MG/3 ML PRE-MIX VIAL INH ONE
[2016-12-17] MEDS ORDERED: RT-ALBUTEROL/IPRATROPIUM 3 ML (DUONEB) VIAL INH ONE (23:45)
[2016-12-17] MEDS ORDERED: DEXAMETHASONE 4 MG/ML SDV (DECADRON) IH ONE (23:45)
[2016-12-17 23:49] LABS: BASOPHILS # (AUTO) 0.1 10^3/uL (0.0-0.1); BASOPHILS % (AUTO) 1 % (0-10); EOSINOPHILS # (AUTO) 0.3 10^3/uL (0.0-0.3); EOSINOPHILS % (AUTO) 5 % (0-10); LYMPHOCYTES # (AUTO) 1.7 X 10^3 (1.0-4.0); LYMPHOCYTES % (AUTO) 27 % (12-44); MEAN CORPUSCULAR HEMOGLOBIN 28 PG (25-34); MEAN CORPUSCULAR HGB CONC 33 G/DL (32-36); MEAN CORPUSCULAR VOLUME 87 FL (80-99); MEAN PLATELET VOLUME 9.8 FL (7.4-10.4); MONOCYTES # (AUTO) 0.5 X 10^3 (0.0-1.0); MONOCYTES % (AUTO) 8 % (0-12); NEUTROPHILS # (AUTO) 3.6 X 10^3 (1.8-7.8); NEUTROPHILS % (AUTO) 58 % (42-75); PLATELET COUNT 250 10^3/uL (130-400); RED BLOOD COUNT 4.69 10^6/uL (4.35-5.85); RED CELL DISTRIBUTION WIDTH 13.2 % (10.0-14.5); WHITE BLOOD COUNT 6.1 10^3/uL (4.3-11.0)
[2016-12-17] MEDS ORDERED: GABA800T PO (23:54)
[2016-12-17 23:56] LABS: ABG BASE EXCESS 0.1 MMOL/L (-2.5-2.5); ABG HCO3 25 MMOL/L (23-27); ABG OXYGEN SATURATION 99 % (94-100); ABG PCO2 42 MMHG (35-45); ABG PH 7.38 (7.37-7.43); ABG PO2 106 MMHG (79-93); ABG TCO2 25.9 MMOL/L (21.0-31.0)
[2016-12-17 23:57] LABS: PROTHROMBIN TIME PATIENT 12.8 SEC (12.2-14.7)
[2016-12-17 23:58] LABS: ALLENS TEST YES-POS; PATIENT TEMP 98.1
[2016-12-18 00:16] LABS: ALANINE AMINOTRANSFERASE 15 U/L (0-55); ANION GAP 10 MMOL/L (5-14); ASPARTATE AMINO TRANSFERASE 14 U/L (5-34); BILIRUBIN,TOTAL 0.4 MG/DL (0.1-1.0); BLOOD UREA NITROGEN 18 MG/DL (7-18); BUN/CREATININE RATIO 21; CALCIUM 9.2 MG/DL (8.5-10.1); CARBON DIOXIDE 28 MMOL/L (21-32); CHLORIDE 105 MMOL/L (98-107); CREATINE KINASE 90 U/L (30-200); CREATININE SERUM 0.86 MG/DL (0.60-1.30); GFR ESTIMATED > 60; GLUCOSE 102 MG/DL (70-105); POTASSIUM 3.9 MMOL/L (3.6-5.0); SODIUM 143 MMOL/L (135-145); TOTAL PROTEIN 6.4 G/DL (6.4-8.2)
--- NOTE | 2016-12-18 00:19 | ED Respiratory ---
General Chief Complaint: Respiratory Problems Stated Complaint: SOA Nursing Triage Note: PT TO ER WITH WORSENING SOA THIS EVENING. HX OF COPD, CHF Source: patient, EMS, old records History of Present Illness Time seen by provider: 23:30 Initial Comments PT ARRIVES VIA EMS FROM HOME C/O SHORTNESS OF BREATH --HAS COPD--WORSE TONIGHT HAS HAD A PRODUCTIVE COUGH, UNKNOWN COLOR NO CHEST PAIN NO FEVER HAD DUONEB TREATMENT PRIOR TO EMS ARRIVAL AT SCENE, AND EMS GAVE DUONEB TREATMENT EMS ALSO GAVE SOLU-MEDROL 125 MG IV PRIOR TO ARRIVAL PT WEARS O2 AT 3L/NC CONTINUOUSLY--PT INCREASED IT TO 6L/NC WITHOUT SIGNIFICANT IMPROVEMENT O2 SAT 93% ON 3L/NC BY EMS--WAS 100% ON 6L/NC ON THEIR ARRIVAL AT SCENE LAST ADMITTED HERE IN [place] FOR COPD EXACERBATION THIS IS A CHRONIC PROBLEM PT CONTINUES TO SMOKE NO DR ANYWHERE--COMES TO ER FOR ALL MEDICAL CARE. HAS BEEN [facility] IN PAST, BUT HAS NOT BEEN THERE IN A VERY LONG TIME. Allergies and Home Medications Allergies Coded Allergies: No Known Drug Allergies (Verified , 04/29/07) Home Medications Albuterol Sulfate 1.25 Mg/3 Ml Vial.neb, 1.25 MG NEB Q6H PRN for SHORTNESS OF BREATH, (Reported) Gabapentin 800 Mg Tablet, 800 MG PO TID, (Reported) Constitutional: no symptoms reported EENTM: no symptoms reported Respiratory: see HPI, cough, short of breath, wheezing Cardiovascular: no symptoms reported, No chest pain Gastrointestinal: no symptoms reported Genitourinary: no symptoms reported Musculoskeletal: no symptoms reported Skin: no symptoms reported Psychiatric/Neurological: No Symptoms Reported Hematologic/Lymphatic: No Symptoms Reported Immunological/Allergic: no symptoms reported Past Winllaf-Tdrnfw-Zcdicg Hx Patient Social History Alcohol Use: Occasionally Uses (HISTORY OF ABUSE-12 PACK EVERY 1-2 DAYS, NOW "OCCASIONALLY" DRINKS) Recreational Drug Use: No (DENIES) Smoking Status: Current Everyday Smoker (UP TO 2 1/2 PPD) Type Used: Cigarettes Recent Foreign Travel: No Contact w/Someone Who Travel: No Recent Infectious Disease Expo: No Recent Hopitalizations: No Immunizations Up To Date Tetanus Booster (TDap): Less than 5yrs Date of Pneumonia Vaccine: Jun 14, 2016 Date of Influenza Vaccine: Jun 14, 2016 Seasonal Allergies Seasonal Allergies: No Surgeries HX Surgeries: Yes (RIGHT ARM--ABOVE ELBOW TRAUMATIC AMPUTATION 2006) Surgeries: Amputation, Orthopedic, Tonsillectomy Respiratory Hx Respiratory Disorders: Yes Respiratory Disorders: Pneumonia, COPD, Emphysema Cardiovascular Hx Cardiac Disorders: No Neurological Hx Neurological Disorders: Yes Neurological Disorders: Neuropathy Reproductive System Hx Reproductive Disorders: No Sexually Transmitted Disease: No HIV/AIDS: No Genitourinary Hx Genitourinary Disorders: No Gastrointestinal Hx Gastrointestinal Disorders: No Musculoskeletal Hx Musculoskeletal Disorders: Yes (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) Musculoskeletal Disorders: Amputee Endocrine Hx Endocrine Disorders: No HEENT HX ENT Disorders: No Cancer Hx Cancer: No Psychosocial Hx Psychiatric Problems: No Behavioral Health Disorders: PTSD Integumentary HX Skin/Integumentary Disorder: No Blood Transfusions Hx Blood Disorders: No Adverse Reaction to a Blood Tr: No Family Medical History Family Medial History: Alzheimer's disease 19 MOTHER Asthma 19 MOTHER Physical Exam Vital Signs Vital Sign - Last 12Hours 12/17/16 12/17/16 23:35 23:58 Temp 98.1 Pulse 81 Resp 18 B/P (MAP) 99/61 Pulse Ox 98 O2 Delivery Nasal Cannula O2 Flow Rate 3.00 Capillary Refill : Less Than 3 Seconds General Appearance: cachetic, other (DIRTY, MALODOROUS, REEKS OF CIGARETTES AND OLD URINE. VERY UNKEMPT. MILD DYSPNEA BUT TALKING CONSTANTLY/VERY LOUDLY, LAUGHING/JOKING, AND ABLE TO TALK AT LENGTH IN FULL SENTENCES. OCCASIONAL DRY COUGH. ), thin HEENT: PERRL/EOMI, other (DIRTY GLASSES, EDENTULOUS) Neck: normal inspection Respiratory: accessory muscle use (MILD), No rales, No rhonchi, No wheezing, other (MINIMAL AIR MOVEMENT, MILD DYSPNEA) Cardiovascular: normal peripheral pulses, regular rate, rhythm, no edema, no JVD, no murmur Gastrointestinal: normal bowel sounds, non tender, soft Extremities: normal range of motion, non-tender, normal inspection, no pedal edema, no calf tenderness, normal capillary refill Neurologic/Psychiatric: pharmacist in charge II-XII nml as tested, no motor/sensory deficits, alert, normal mood/affect, oriented x 3 Skin: normal color, warm/dry Focused Exam Lactic Acid Level Laboratory Tests Test 12/17/16 00:00 Lactic Acid Level 1.60 MMOL/L (0.50-2.00) Progress/Results/Core Measures Results/Orders Lab Results Laboratory Tests Test 12/17/16 00:00 12/17/16 23:35 12/17/16 23:45 Range/Units Lactic Acid Level 1.60 0.50-2.00 MMOL/L White Blood Count 6.1 4.3-11.0 10^3/uL Red Blood Count 4.69 4.35-5.85 10^6/uL Hemoglobin 13.3 13.3-17.7 G/DL Hematocrit 41 40-54 % Mean Corpuscular Volume 87 80-99 FL Mean Corpuscular Hemoglobin 28 25-34 PG Mean Corpuscular Hemoglobin Concent 33 32-36 G/DL Red Cell Distribution Width 13.2 10.0-14.5 % Platelet Count 250 130-400 10^3/uL Mean Platelet Volume 9.8 7.4-10.4 FL Neutrophils (%) (Auto) 58 42-75 % Lymphocytes (%) (Auto) 27 12-44 % Monocytes (%) (Auto) 8 0-12 % Eosinophils (%) (Auto) 5 0-10 % Basophils (%) (Auto) 1 0-10 % Neutrophils # (Auto) 3.6 1.8-7.8 X 10^3 Lymphocytes # (Auto) 1.7 1.0-4.0 X 10^3 Monocytes # (Auto) 0.5 0.0-1.0 X 10^3 Eosinophils # (Auto) 0.3 0.0-0.3 10^3/uL Basophils # (Auto) 0.1 0.0-0.1 10^3/uL Prothrombin Time 12.8 12.2-14.7 SEC INR Comment 1.0 0.8-1.4 Activated Partial Thromboplast Time 23 L 24-35 SEC Sodium Level 143 135-145 MMOL/L Potassium Level 3.9 3.6-5.0 MMOL/L Chloride Level 105 98-107 MMOL/L Carbon Dioxide Level 28 21-32 MMOL/L Anion Gap 10 5-14 MMOL/L Blood Urea Nitrogen 18 7-18 MG/DL Creatinine 0.86 0.60-1.30 MG/DL Estimat Glomerular Filtration Rate > 60 BUN/Creatinine Ratio 21 Glucose Level 102 70-105 MG/DL Calcium Level 9.2 8.5-10.1 MG/DL Total Bilirubin 0.4 0.1-1.0 MG/DL Aspartate Amino Transf (AST/SGOT) 14 5-34 U/L Alanine Aminotransferase (ALT/SGPT) 15 0-55 U/L Alkaline Phosphatase 64 40-136 U/L Total Creatine Kinase 90 30-200 U/L Creatine Kinase MB 3.2 <6.6 NG/ML Troponin I < 0.30 <0.30 NG/ML B-Type Natriuretic Peptide 18.4 <100.0 PG/ML Total Protein 6.4 6.4-8.2 G/DL Albumin 4.0 3.2-4.5 G/DL Blood Gas Puncture Site L RAD Blood Gas Patient Temperature 98.1 Arterial Blood pH 7.38 7.37-7.43 Arterial Blood Partial Pressure CO2 42 35-45 MMHG Arterial Blood Partial Pressure O2 106 H 79-93 MMHG Arterial Blood HCO3 25 23-27 MMOL/L Arterial Blood Total CO2 25.9 21.0-31.0 MMOL/L Arterial Blood Oxygen Saturation 99 94-100 % Arterial Blood Base Excess 0.1 -2.5-2.5 MMOL/L Last Test YES-POS Blood Gas Ventilator Setting NO Blood Gas Inspired Oxygen 3L Micro Results Microbiology 12/17/16 Influenza Types A,B Antigen (ALEISHA) - Final, Complete My Orders Orders - TREVOR TIDWELL DO Saline Lock/Iv-Start (12/17/16 23:38) Ekg Tracing (12/17/16 23:38) O2 (12/17/16 23:38) Monitor-Rhythm Ecg Trace Only (12/17/16 23:38) BNP (12/17/16 23:38) Cbc With Automated Diff (12/17/16 23:38) Comprehensive Metabolic Panel (12/17/16 23:38) Creatine Kinase (12/17/16 23:38) Creatine Kinase Mb (12/17/16 23:38) Protime With Inr (12/17/16 23:38) Partial Thromboplastin Time (12/17/16 23:38) Troponin I (12/17/16 23:38) Blood Culture (12/17/16 23:38) Influenza A And B Antigens (12/17/16 23:38) Arterial Blood Gas (12/17/16 23:38) Lactic Acid Analyzer (12/17/16 23:38) Albuterol/Ipra Inhalation Soln (Duoneb I (12/17/16 23:45) Dexamethasone Injection (Decadron Inject (12/17/16 23:45) Rt Request For Service (12/17/16 23:45) Svn Sm Volume Nebulizer Rt-Rfs (12/17/16 23:45) Lorazepam Injection (Ativan Injection) (12/18/16 00:30) Albuterol/Ipra Inhalation Soln (Duoneb I (12/18/16 00:30) Dexamethasone Injection (Decadron Inject (12/18/16 00:30) Rt Request For Service (12/18/16 00:18) Svn Sm Volume Nebulizer Rt-Rfs (12/18/16 00:18) Chest 1 View, Ap/Pa Only (12/18/16 00:01) Ceftriaxone Injection (Rocephin Injectio (12/18/16 01:30) Medications Given in ED Current Medications Medications Dose Ordered Sig/Selena Route Start Time Stop Time Status Last Admin Dose Admin Albuterol/ Ipratropium 3 ml ONCE ONCE INH 12/17/16 23:45 12/17/16 23:48 DC 12/17/16 23:58 3 ML Albuterol/ Ipratropium 3 ml ONCE ONCE INH 12/18/16 00:30 12/18/16 00:31 UNV 12/18/16 00:57 3 ML Dexamethasone Sodium Phosphate 20 mg ONCE ONCE IH 12/17/16 23:45 12/17/16 23:48 DC 12/17/16 23:58 20 MG Lorazepam 2 mg ONCE ONCE IVP 12/18/16 00:30 12/18/16 00:31 UNV 12/18/16 00:26 2 MG Vital Signs/I&O Vital Sign - Last 12Hours 12/17/16 12/17/16 12/17/16 12/18/16 23:35 23:35 23:58 00:57 Temp 98.1 Pulse 81 Resp 18 B/P (MAP) 99/61 Pulse Ox 98 98 O2 Delivery Nasal Cannula O2 Flow Rate 3.00 3.00 3.00 Blood Pressure Mean: 74 Progress Note : Progress Note AFTER FIRST NEB TREATMENT, PT BECAME MORE DYSPNEIC, DIAPHORETIC, SITTING STRAIGHT UP/UNABLE TO RECLINE, NOW WITH DIFFUSE WHEEZING BILATERALLY, AND PT ANXIOUS. ABLE TO TALK IN SHORT SENTENCES. O2 SATS STILL IN LOW TO MID 90'S GIVEN ATIVAN, AND BIPAP ORDERED--PT REFUSES BIPAP AND PULLED OFF MASK HOUR LONG NEB TREATMENT INITIATED. PT CALMER, INCREASED AERATION AND DECREASED WHEEZING. PT NOW ABLE TO RECLINE. REMAIN IN LOW TO MID 90'S. ECG Initial ECG Impression Time: 23:39 Initial ECG Rate: 80 Initial ECG Rhythm: Normal Sinus Initial ECG Comparisson: Unchanged Diagnostic Imaging Comments CXR--COPD, RLL INFILTRATE--PENDING RADIOLOGIST REVIEW Reviewed: Reviewed by Me Departure Communication Progress Notes 0123--SPOKE WITH DR. MARR, ACCEPTS PT FOR ADMIT. Impression Impression: Primary Impression: Acute on chronic respiratory failure Additional Impressions: COPD EXACERBATION HYPOXIA Tobacco abuse Disposition: ADMITTED INPATIENT Condition: Improved Decision to Admit Reason: Admit from ER (General) Decision to Admit/Date: Dec 18, 2016 Time/Decision to Admit Time: 01:25 Departure-Patient Inst. Referrals: NO,LOCAL PHYSICIAN (PCP/Family) Primary Care Physician TREVOR TIDWELL DO Dec 18, 2016 00:19
[2016-12-18 00:22] LABS: TROPONIN I < 0.30 NG/ML (<0.30)
[2016-12-18] MEDS ORDERED: LORazepam INJ 2 MG/ML (ATIVAN) VIAL IVP ONE (00:30)
[2016-12-18] MEDS ORDERED: DEXAMETHASONE 4 MG/ML SDV (DECADRON) IH ONE (00:30)
[2016-12-18] MEDS ORDERED: RT-ALBUTEROL/IPRATROPIUM 3 ML (DUONEB) VIAL INH ONE (00:30)
[2016-12-18] MEDS ORDERED: cefTRIAXone INJECTION 1,000 MG in NS (IVPB) 50 ML IV ONE (01:30)
[2016-12-18] MEDS ORDERED: 1/2 NS IV SOLUTION 1,000 ML IV ONE (03:10)
[2016-12-18 04:00] VITALS: BP 104/62
[2016-12-18] MEDS ORDERED: RT-ALBUTEROL SULF 2.5 MG/3 ML PRE-MIX VIAL IH PRN (04:00)
[2016-12-18] MEDS ORDERED: LORazepam INJ 2 MG/ML (ATIVAN) VIAL IV PRN (05:30)
[2016-12-18] MEDS: 1/2 NS IV SOLUTION 1,000 ML IV SCH ×2 (05:39→17:54)
[2016-12-18] MEDS: methylPREDNISolone 125 MG (Solu-MEDROL) VIAL IV SCH ×3 (05:43→17:55)
[2016-12-18] MEDS ORDERED: DOXYCYCLINE 100 MG/NS 100 ML IVPB IV SCH ×2 (06:00)
[2016-12-18 06:55] LABS: BASOPHILS % (AUTO) 0 % (0-10); EOSINOPHILS % (AUTO) 1 % (0-10); LYMPHOCYTES # (AUTO) 0.3 X 10^3 (1.0-4.0); LYMPHOCYTES % (AUTO) 7 % (12-44); MEAN CORPUSCULAR HEMOGLOBIN 29 PG (25-34); MEAN CORPUSCULAR HGB CONC 33 G/DL (32-36); MEAN CORPUSCULAR VOLUME 87 FL (80-99); MEAN PLATELET VOLUME 10.6 FL (7.4-10.4); MONOCYTES # (AUTO) 0.1 X 10^3 (0.0-1.0); MONOCYTES % (AUTO) 1 % (0-12); NEUTROPHILS # (AUTO) 3.8 X 10^3 (1.8-7.8); NEUTROPHILS % (AUTO) 92 % (42-75); PLATELET COUNT 211 10^3/uL (130-400); RED BLOOD COUNT 4.23 10^6/uL (4.35-5.85); RED CELL DISTRIBUTION WIDTH 12.9 % (10.0-14.5); WHITE BLOOD COUNT 4.2 10^3/uL (4.3-11.0)
[2016-12-18] MEDS ORDERED: CATHETER FLUSH 10 ML SYR IV PRN (07:00)
[2016-12-18] MEDS: RT-ALBUTEROL SULF 2.5 MG/3 ML PRE-MIX VIAL IH SCH ×5 (07:06→22:21)
[2016-12-18 07:10] LABS: ALANINE AMINOTRANSFERASE 14 U/L (0-55); ALBUMIN 3.7 G/DL (3.2-4.5); ANION GAP 11 MMOL/L (5-14); ASPARTATE AMINO TRANSFERASE 12 U/L (5-34); BILIRUBIN,TOTAL 0.3 MG/DL (0.1-1.0); BLOOD UREA NITROGEN 19 MG/DL (7-18); BUN/CREATININE RATIO 23; CALCIUM 8.9 MG/DL (8.5-10.1); CARBON DIOXIDE 24 MMOL/L (21-32); CHLORIDE 105 MMOL/L (98-107); CREATININE SERUM 0.84 MG/DL (0.60-1.30); GFR ESTIMATED > 60; GLUCOSE 166 MG/DL (70-105); POTASSIUM 3.9 MMOL/L (3.6-5.0); SODIUM 140 MMOL/L (135-145); TOTAL PROTEIN 5.9 G/DL (6.4-8.2)
[2016-12-18 07:37] LABS: BAND NEUTROPHILS 0 %; BASOPHILS % (MANUAL) 0 %; EOSINOPHILS % (MANUAL) 0 %; LYMPHOCYTES % (MANUAL) 3 %; NEUTROPHILS % (MANUAL) 97 %
[2016-12-18 08:00] VITALS: BP 101/59
[2016-12-18] MEDS ORDERED: ASPI325T32 PO (08:21)
--- NOTE | 2016-12-18 08:21 | Diagnostic Imaging Report ---
INDICATION: Shortness of air. TECHNIQUE: Single view chest 12:45 AM. CORRELATION STUDY: 11/19/2016 FINDINGS: The heart size, mediastinal configuration and pulmonary vascularity are within normal limits. Lung blanco hyperinflated with changes of COPD. No definitive infiltrate. Blunting of the costophrenic angles unchanged. IMPRESSION: 1. Findings compatible with COPD. Negative for acute abnormality. Dictated by: Dictated on workstation # [id number]
[2016-12-18 12:00] VITALS: BP 111/53
--- NOTE | 2016-12-18 13:06 | History & Physical-Hospitalist ---
HPI History of Present Illness: HPI/Chief Complaint The patient is a 61-year-old white male who is known to the hospitalist service after an admission in September. He has no primary although he has a significant long-standing history of COPD/chronic bronchitis. He had stated on his previous admission that he had stopped smoking as a New Year's resolution. He stated that yesterday he smoked a cigarette. He also has home oxygen that he uses at bedtime and as needed. He took a nebulizer treatment at home and felt that he got worse. When he presented to the emergency room he had had his own DuoNeb treatment at home and then a second treatment given by EMS plus a dose of Solu-Medrol 125 mg IV. He had been using O2 at home at 3 L/m. He had increased to 6 L a minute without significant improvement. On arrival at 3 L/m he had a sat of 93 percent. He denied fever chills or purulent sputum Source: patient Exam Limitations: no limitations Date Seen 12/18/16 Attending Physician Giovanny Marr MD PCP No,Local Physician Referring Physician Date of Admission Dec 18, 2016 at 01:25 Home Medications & Allergies Home Medications Reviewed patient Home Medication Reconciliation Form Allergies Allergies Coded Allergies No Known Drug Allergies (Verified04/29/07) Past Medelcz-Gfiesq-Dnyrns Hx Patient Social History Alcohol Use: Occasionally Uses Recreational Drug Use: No (DENIES) Smoking Status: Former Smoker Type Used: Cigarettes Physical Abuse Screen: No Sexual Abuse: No Recent Foreign Travel: No Contact w/other who traveled: No Recent Hopitalizations: No Recent Infectious Disease Expo: No Immunizations Up To Date Tetanus Booster (TDap): Less than 5yrs Date of Pneumonia Vaccine: Jun 14, 2016 Date of Influenza Vaccine: Jun 14, 2016 Seasonal Allergies Seasonal Allergies: No Surgeries HX Surgeries: Yes (RIGHT ARM--ABOVE ELBOW TRAUMATIC AMPUTATION 2006) Surgeries: Amputation, Orthopedic, Tonsillectomy Respiratory Hx Respiratory Disorders: Yes Respiratory Disorders: COPD, Pneumonia Cardiovascular Hx Cardiovascular Disorders: No Neurological Hx Neurological Disorders: Yes Neurological Disorders: Neuropathy Reproductive System Hx Reproductive Disorders: No Sexually Transmitted Disease: No HIV/AIDS: No Genitourinary Hx Genitourinary Disorders: No Gastrointestinal Hx Gastrointestinal Disorders: No Musculoskeletal Hx Musculoskeletal Disorders: Yes (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) Musculoskeletal Disorders: Amputee Endocrine Hx Endocrine Disorders: No HEENT HX ENT Disorders: No Cancer Hx Cancer: No Psychosocial Hx Psychiatric Problems: No Behavioral Health Disorders: PTSD Integumentary HX Skin/Integumentary Disorder: No Blood Transfusions Hx Blood Disorders: No Adverse Reaction to a Blood Tr: No Family Medical History Family Hx: Alzheimer's disease 19 MOTHER Asthma 19 MOTHER Review of Systems Constitutional: see HPI EENTM: no symptoms reported Respiratory: see HPI Cardiovascular: no symptoms reported Gastrointestinal: no symptoms reported Genitourinary: no symptoms reported Musculoskeletal: no symptoms reported Skin: no symptoms reported Psychiatric/Neurological: No Symptoms Reported Physical Exam Physical Exam Vital Signs Vital Sign - Last 12Hours 12/17/16 12/17/16 23:35 23:58 Temp 98.1 Pulse 81 Resp 18 B/P (MAP) 99/61 Pulse Ox 98 O2 Delivery Nasal Cannula O2 Flow Rate 3.00 Capillary Refill : Less Than 3 Seconds General Appearance: Mild Distress Eyes: Bilateral Eye Normal Inspection HEENT: Normal ENT Inspection Neck: Normal Inspection Respiratory: Other (distant breath sounds without wheezing or retraction) Cardiovascular: Regular Rate, Rhythm, No Edema, No Gallop, No JVD, No Murmur, Normal Peripheral Pulses Gastrointestinal: Normal Bowel Sounds, No Organomegaly, No Pulsatile Mass, Non Tender, Soft Back: Normal Inspection, No CVA Tenderness, No Vertebral Tenderness Extremity: Normal Capillary Refill, Normal Inspection, Normal Range of Motion, Non Tender, No Calf Tenderness, No Pedal Edema, Other (right arm AE amputation) Neurologic/Psychiatric: Alert, Oriented x3, No Motor/Sensory Deficits, Normal Mood/Affect Results Results/Procedures Lab Laboratory Tests 12/17/16 23:35 12/18/16 05:50 Assessment/Plan Admission Diagnosis Severe COPD with chronic O2 requirements. Exacerbation of same Assessment and Plan Increased pulmonary toilet. High-dose steroids. Short-term prophylactic antibiotic Clinical Quality Measures DVT/VTE Risk/Contraindication: Risk Factor Score Per Nursin RFS Level Per Nursing on Admit: 4+=Very High GIOVANNY MARR MD Dec 18, 2016 13:06
[2016-12-18] MEDS: ENOXAPARIN 40 MG/0.4 ML (LOVENOX) SYR SC SCH (14:54)
[2016-12-18 16:00] VITALS: BP 103/60
[2016-12-18 19:40] VITALS: BP 106/61
[2016-12-18] MEDS: DOXYCYCLINE 100 MG (VIBRAMYCIN) TABLET PO SCH (20:49)
[2016-12-18] MEDS ORDERED: cefTRIAXone 1 GM/NS 50 ML IVPB IV SCH ×2 (21:00)
[2016-12-19 00:54] VITALS: BP 103/51
[2016-12-19] MEDS: RT-ALBUTEROL SULF 2.5 MG/3 ML PRE-MIX VIAL IH SCH ×3 (02:21→10:31)
[2016-12-19 04:39] VITALS: BP 112/73
[2016-12-19] MEDS: 1/2 NS IV SOLUTION 1,000 ML IV SCH (07:51)
[2016-12-19 08:00] VITALS: BP 89/52
[2016-12-19] MEDS: DOXYCYCLINE 100 MG (VIBRAMYCIN) TABLET PO SCH (08:28)
--- NOTE | 2016-12-19 10:59 | Progress Note-Hospitalist ---
Standard Progress Note Progress Notes/Assess & Plan Date Seen 12/19/16 Diagnosis Severe COPD with chronic O2 requirements. Exacerbation of same Assess & Plan/Chief Complaint The patient reports that he is feeling considerably better today. He feels that he has reached his usual home status relative to his respiratory disease. It is noted he continues to cough with some clear to light yellow sputum production. He states this is usual. He has a nebulizer with albuterol which he uses at home. He also has O2 supplies and normally runs that at 4 L/m. He has a very confined existence. Unfortunately he is gone back to smoking after having made his New Year's resolution to stop. Physical exam: He appears comfortable. O2 is in place. He is tachypneic at rest. He is able to speak in full sentences. Lungs show very distant breath sounds without wheezing. CV is regular. Extremities show no pedal edema. Impression: Severe/end-stage COPD. Exacerbation of same. Plan: Discharge. See discharge sequence for medication instructions. Labs Laboratory Tests 12/17/16 23:35 12/18/16 05:50 Final Diagnosis 1.severe/end-stage COPD with chronic O2 requirements. 2.exacerbation of same. HEVER MARR MD Dec 19, 2016 10:59
[2016-12-19] MEDS ORDERED: CEFD300C3 PO (11:00)
[2016-12-19] MEDS ORDERED: PRD20T PO (11:08)
[2016-12-19 12:00] VITALS: BP 105/67
[2016-12-19] MEDS: ENOXAPARIN 40 MG/0.4 ML (LOVENOX) SYR SC SCH (13:24)
[2016-12-19 15:15] VITALS: BP 105/67
== END 2016-12-19 14:30 | disposition home or self-care (01) | DRG 192 ==
LOC: EDUNIT# 23:35 → ER 23:36 → 4TH 12-18 01:25
PROVIDERS: ADMIT Internal Medicine; ATTEND Internal Medicine
DX: J44.1 Chronic obstructive pulmonary disease with (acute) exacerbation (principal); R09.02 Hypoxemia; Z99.81 Dependence on supplemental oxygen; F17.210 Nicotine dependence, cigarettes, uncomplicated; Z89.221 Acquired absence of right upper limb above elbow
CPT/HCPCS: 36415; 71010; 80053; 82550; 82553; 82805; 83605; 83880; 84484; 85007; 85025; 85027; 85610; 85730; 87040; 87804; 93005; 93041; 94640; 94760; 96374; 96375

== ENCOUNTER 2017-03-14 00:31 | Inpatient (IN) | payer MEDICARE ==
[~2017-03-14] VITALS: Ht 180.3 cm; Wt 53.6 kg
[~2017-03-14 00:31] MED LIST changes: +ALBUTROL; +ASPI325T32 PO; +BUDE1AMP IH; +CEFD300C3 PO; +DOXY100C42 PO; +GABA800T PO; +METH4TAB PO; +PRD20T PO
[2017-03-14] MEDS ORDERED: RT-ALBUTEROL SULF 2.5 MG/3 ML PRE-MIX VIAL ONE (00:35)
[2017-03-14] MEDS ORDERED: NS IV 500 ML 500 ML IV ONE (00:38)
[2017-03-14] MEDS ORDERED: RT-ALBUTEROL SULF 2.5 MG/3 ML PRE-MIX VIAL INH STA ×2 (00:38→01:33)
[2017-03-14 00:47] LABS: BASOPHILS # (AUTO) 0.1 10^3/uL (0.0-0.1); BASOPHILS % (AUTO) 1 % (0-10); EOSINOPHILS # (AUTO) 0.9 10^3/uL (0.0-0.3); EOSINOPHILS % (AUTO) 10 % (0-10); LYMPHOCYTES # (AUTO) 2.1 X 10^3 (1.0-4.0); LYMPHOCYTES % (AUTO) 23 % (12-44); MEAN CORPUSCULAR HEMOGLOBIN 29 PG (25-34); MEAN CORPUSCULAR HGB CONC 34 G/DL (32-36); MEAN CORPUSCULAR VOLUME 86 FL (80-99); MEAN PLATELET VOLUME 10.2 FL (7.4-10.4); MONOCYTES # (AUTO) 0.9 X 10^3 (0.0-1.0); MONOCYTES % (AUTO) 10 % (0-12); NEUTROPHILS # (AUTO) 5.1 X 10^3 (1.8-7.8); NEUTROPHILS % (AUTO) 57 % (42-75); PLATELET COUNT 238 10^3/uL (130-400); RED BLOOD COUNT 5.38 10^6/uL (4.35-5.85); RED CELL DISTRIBUTION WIDTH 12.3 % (10.0-14.5); WHITE BLOOD COUNT 9.1 10^3/uL (4.3-11.0)
--- NOTE | 2017-03-14 00:57 | ED Respiratory ---
General Chief Complaint: Respiratory Problems Stated Complaint: SOB Nursing Triage Note: Wokefrom sleeping soa, attempted breathing treatment but was unable to complete. EMs placed pt on 6l/min- weaned to 4l/min. Denies cp Source: patient Exam Limitations: no limitations History of Present Illness Time seen by provider: 00:20 Initial Comments Here by EMS with respiratory distress. Patient apparently became quite dyspneic tonight. He was placed on high flow O2 which did improve his oxygenation. He attempted to take his own DuoNeb at home but was too dyspneic to get it done. EMS was summoned. They did establish an IV and give 125 mg of Solu-Medrol IV and initiate DuoNeb treatment. He was taken from high flow O2 back to 6 L via nasal cannula with O2 sat at 100 percent. Patient is still reports being quite dyspneic. Recently quit smoking. Denies fever or chills. Denies nausea or vomiting. Unsure of what started the event tonight. Does have long-standing significant COPD. Timing/Duration: this morning, getting worse Severity: moderate, severe Prior Episodes/Possible Cause: frequent episodes Modifying Factors: Worse With Activity, Improves With Albuterol Nebulizer, Improves With Oxygen, Improves With Rest Associated Symptoms: No chest pain/soreness, cough, No fever/chills, shortness of breath, No sinus infection, wheezing Allergies and Home Medications Allergies Coded Allergies: No Known Drug Allergies (Verified , 03/14/17) Home Medications Albuterol Sulfate 1.25 Mg/3 Ml Vial.neb, 1.25 MG NEB Q6H PRN for SHORTNESS OF BREATH, (Reported) Aspirin 325 Mg Tablet.dr, 325 MG PO DAILY PRN for HEADACHE, (Reported) Budesonide 1 Mg/2 Ml Ampul.neb, 1 MG IH BID, #1 Prescribed by: TREVOR TIDWELL on 11/19/16 1614 [Albutrol] , (Reported) Constitutional: see HPI, No chills, No fever EENTM: no symptoms reported Respiratory: see HPI, cough, short of breath, wheezing Cardiovascular: no symptoms reported Gastrointestinal: no symptoms reported, No abdominal pain, No nausea, No vomiting Genitourinary: no symptoms reported All Other Systems Reviewed Negative Unless Noted: Yes Past Lnbvpsr-Kosjnn-Qnzwgq Hx Patient Social History Alcohol Use: Denies Use Recreational Drug Use: No Smoking Status: Former Smoker Type Used: Cigarettes 2nd Hand Smoke Exposure: No Recent Foreign Travel: No Contact w/Someone Who Travel: No Recent Infectious Disease Expo: No Recent Hopitalizations: No Immunizations Up To Date Tetanus Booster (TDap): Unknown Date of Pneumonia Vaccine: Jun 14, 2016 Date of Influenza Vaccine: Jun 14, 2016 Seasonal Allergies Seasonal Allergies: No Surgeries HX Surgeries: Yes (RIGHT ARM--ABOVE ELBOW TRAUMATIC AMPUTATION 2006) Surgeries: Orthopedic Respiratory Hx Respiratory Disorders: Yes Respiratory Disorders: COPD Cardiovascular Hx Cardiac Disorders: No Cardiac Disorders: Hypertension Neurological Hx Neurological Disorders: Yes Neurological Disorders: Neuropathy Reproductive System Hx Reproductive Disorders: No Sexually Transmitted Disease: No HIV/AIDS: No Genitourinary Hx Genitourinary Disorders: No Gastrointestinal Hx Gastrointestinal Disorders: No Musculoskeletal Hx Musculoskeletal Disorders: Yes (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) Musculoskeletal Disorders: Amputee Endocrine Hx Endocrine Disorders: No HEENT HX ENT Disorders: No Cancer Hx Cancer: No Psychosocial Hx Psychiatric Problems: No Behavioral Health Disorders: PTSD Integumentary HX Skin/Integumentary Disorder: No Blood Transfusions Hx Blood Disorders: No Adverse Reaction to a Blood Tr: No Reviewed Nursing Assessment Reviewed/Agree w Nursing PMH: Yes Family Medical History Family Medial History: Alzheimer's disease 19 MOTHER Asthma 19 MOTHER Physical Exam Vital Signs Vital Sign - Last 12Hours 03/14/17 03/14/17 00:33 00:44 Temp 98.9 Pulse 101 Resp 20 B/P (MAP) 117/89 Pulse Ox 94 O2 Delivery Nasal Cannula O2 Flow Rate 4.00 Capillary Refill : Less Than 3 Seconds General Appearance: moderate distress, thin HEENT: PERRL/EOMI, pharynx normal Neck: full range of motion, supple Respiratory: respiratory distress, accessory muscle use, wheezing (bilateral inspiratory and expiratory) Cardiovascular: regular rate, rhythm, no murmur Gastrointestinal: non tender, soft Extremities: non-tender, normal inspection Neurologic/Psychiatric: alert, normal mood/affect, oriented x 3 Skin: normal color, warm/dry Focused Exam Lactic Acid Level Laboratory Tests Test 03/14/17 01:11 Lactic Acid Level 0.56 MMOL/L (0.50-2.00) Progress/Results/Core Measures Results/Orders Lab Results Laboratory Tests Test 03/14/17 00:39 03/14/17 01:11 Range/Units White Blood Count 9.1 4.3-11.0 10^3/uL Red Blood Count 5.38 4.35-5.85 10^6/uL Hemoglobin 15.5 13.3-17.7 G/DL Hematocrit 46 40-54 % Mean Corpuscular Volume 86 80-99 FL Mean Corpuscular Hemoglobin 29 25-34 PG Mean Corpuscular Hemoglobin Concent 34 32-36 G/DL Red Cell Distribution Width 12.3 10.0-14.5 % Platelet Count 238 130-400 10^3/uL Mean Platelet Volume 10.2 7.4-10.4 FL Neutrophils (%) (Auto) 57 42-75 % Lymphocytes (%) (Auto) 23 12-44 % Monocytes (%) (Auto) 10 0-12 % Eosinophils (%) (Auto) 10 0-10 % Basophils (%) (Auto) 1 0-10 % Neutrophils # (Auto) 5.1 1.8-7.8 X 10^3 Lymphocytes # (Auto) 2.1 1.0-4.0 X 10^3 Monocytes # (Auto) 0.9 0.0-1.0 X 10^3 Eosinophils # (Auto) 0.9 H 0.0-0.3 10^3/uL Basophils # (Auto) 0.1 0.0-0.1 10^3/uL Sodium Level 143 135-145 MMOL/L Potassium Level 4.1 3.6-5.0 MMOL/L Chloride Level 102 98-107 MMOL/L Carbon Dioxide Level 27 21-32 MMOL/L Anion Gap 14 5-14 MMOL/L Blood Urea Nitrogen 18 7-18 MG/DL Creatinine 0.85 0.60-1.30 MG/DL Estimat Glomerular Filtration Rate > 60 BUN/Creatinine Ratio 21 Glucose Level 114 H 70-105 MG/DL Calcium Level 9.5 8.5-10.1 MG/DL Total Bilirubin 0.3 0.1-1.0 MG/DL Aspartate Amino Transf (AST/SGOT) 13 5-34 U/L Alanine Aminotransferase (ALT/SGPT) 12 0-55 U/L Alkaline Phosphatase 64 40-136 U/L C-Reactive Protein High Sensitivity 0.19 0.00-0.50 MG/DL Total Protein 7.2 6.4-8.2 GM/DL Albumin 4.1 3.2-4.5 GM/DL Lactic Acid Level 0.56 0.50-2.00 MMOL/L My Orders Orders - MARTINA MADERA MD Cbc With Automated Diff (03/14/17 00:38) Comprehensive Metabolic Panel (03/14/17 00:38) Hs C Reactive Protein (03/14/17 00:38) Chest 1 View, Ap/Pa Only (03/14/17 00:38) Albuterol Pre-Mix Nebs (Rt) (Proventil P (03/14/17 00:38) Svn Sm Volume Nebulizer Rt-Rfs (03/14/17 00:38) Saline Lock/Iv-Start (03/14/17 00:38) Ns Iv 500 Ml (Sodium Chloride 0.9%) (03/14/17 00:38) Albuterol Pre-Mix Nebs (Rt) (Proventil P (03/14/17 00:35) Ekg Tracing (03/14/17 00:57) Lactic Acid Analyzer (03/14/17 00:57) Blood Culture (03/14/17 00:57) Albuterol Pre-Mix Nebs (Rt) (Proventil P (03/14/17 01:33) Albuterol/Ipra Inhalation Soln (Duoneb I (03/14/17 01:45) Svn Sm Volume Nebulizer Rt-Rfs (03/14/17 01:33) Svn Sm Volume Nebulizer Rt-Rfs (03/14/17 01:33) Medications Given in ED Current Medications Medications Dose Ordered Sig/Selnea Route Start Time Stop Time Status Last Admin Dose Admin Sodium Chloride 500 ml @ 0 mls/hr Q0M ONCE IV 03/14/17 00:38 03/14/17 00:42 DC 03/14/17 00:44 500 MLS/HR Vital Signs/I&O Vital Sign - Last 12Hours 03/14/17 03/14/17 03/14/17 00:33 00:44 00:58 Temp 98.9 97.7 Pulse 101 94 Resp 20 20 B/P (MAP) 117/89 93/77 Pulse Ox 94 20 O2 Delivery Nasal Cannula Nasal Cannula O2 Flow Rate 4.00 4.00 Blood Pressure Mean: 98 Progress Note : Progress Note Seen and evaluated. IV, labs, EKG and chest x-ray ordered. Patient is afebrile blood pressure noted to be in the 90s systolic. map is Greater than 65. Blood cultures and lactic acid ordered. Monitor patient. Albuterol treatment 3 given. Patient doing a little better. 0135: Patient having return of spasms and dyspnea. Continuous one-hour treatment initiated. I did discuss the case with Dr. Albert. She accepts patient for admission, inpatient status. Patient agrees to plan. ECG Initial ECG Impression Date: Mar 14, 2017 Initial ECG Impression Time: 00:30 Initial ECG Rate: 97 Initial ECG Rhythm: Normal Sinus Comment Sinus rhythm with normal axis. No evidence of ST elevation [place]. Similar to previous of 12/17/16. Interpreted by me. Diagnostic Imaging Diagonstic Imaging: Xray Plain Films/CT/US/NM/MRI: chest Comments COPD findings. Otherwise no acute. Reviewed: Reviewed by Me Departure Communication Time/Spoke to Admitting Phy: 01:35 Impression Impression: Primary Impression: COPD with acute exacerbation Additional Impression: Acute on chronic respiratory failure Qualified Codes: J96.21 - Acute and chronic respiratory failure with hypoxia Disposition: ADMITTED INPATIENT Condition: Stable Decision to Admit Reason: Admit from ER (General) Decision to Admit/Date: Mar 14, 2017 Time/Decision to Admit Time: 01:35 Departure-Patient Inst. Referrals: NO,LOCAL PHYSICIAN (PCP/Family) Primary Care Physician MARTINA MADERA MD Mar 14, 2017 00:57
[2017-03-14 01:12] LABS: ALANINE AMINOTRANSFERASE 12 U/L (0-55); ALBUMIN 4.1 GM/DL (3.2-4.5); ANION GAP 14 MMOL/L (5-14); ASPARTATE AMINO TRANSFERASE 13 U/L (5-34); BILIRUBIN,TOTAL 0.3 MG/DL (0.1-1.0); BLOOD UREA NITROGEN 18 MG/DL (7-18); BUN/CREATININE RATIO 21; CALCIUM 9.5 MG/DL (8.5-10.1); CARBON DIOXIDE 27 MMOL/L (21-32); CHLORIDE 102 MMOL/L (98-107); CREATININE SERUM 0.85 MG/DL (0.60-1.30); GFR ESTIMATED > 60; GLUCOSE 114 MG/DL (70-105); POTASSIUM 4.1 MMOL/L (3.6-5.0); SODIUM 143 MMOL/L (135-145); TOTAL PROTEIN 7.2 GM/DL (6.4-8.2); hs C REACTIVE PROTEIN 0.19 MG/DL (0.00-0.50)
[2017-03-14] MEDS ORDERED: RT-ALBUTEROL/IPRATROPIUM 3 ML (DUONEB) VIAL INH ONE (01:45)
[2017-03-14 02:51] VITALS: BP 99/66
[2017-03-14] MEDS ORDERED: NS IV 1000 ML 1,000 ML ONE (02:58)
[2017-03-14] MEDS ORDERED: NS IV 1000 ML 1,000 ML IV SCH (03:15)
[2017-03-14] MEDS ORDERED: CATHETER FLUSH 10 ML SYR IV PRN (03:15)
[2017-03-14] MEDS ORDERED: RT-ALBUTEROL SULF 2.5 MG/3 ML PRE-MIX VIAL IH PRN (03:30)
[2017-03-14 04:00] VITALS: BP 101/65
[2017-03-14] MEDS ORDERED: methylPREDNISolone 125 MG (Solu-MEDROL) VIAL IV SCH (06:00)
[2017-03-14] MEDS ORDERED: CATHETER FLUSH 10 ML SYR IV SCH (06:00)
[2017-03-14] MEDS: RT-ALBUTEROL SULF 2.5 MG/3 ML PRE-MIX VIAL IH SCH ×2 (06:45→10:51)
--- NOTE | 2017-03-14 06:52 | Diagnostic Imaging Report ---
INDICATION: Respiratory distress. Portable chest 12:50 AM. Heart size and pulmonary vascularity are normal. Lungs are clear. There are no effusions or pneumothoraces. There appears to be mild air trapping and some emphysematous changes consistent with COPD. IMPRESSION: COPD. No acute abnormality seen. Dictated by: Dictated on workstation # [id number]
[2017-03-14 07:39] VITALS: BP 92/55
[2017-03-14] MEDS ORDERED: RT-BUDESONIDE NEBS 0.5 MG/2ML (PULMICORT) AMP INH SCH (08:00)
[2017-03-14] MEDS ORDERED: RT-ALBUINH IH (08:56)
--- NOTE | 2017-03-14 10:34 | History & Physical-Hospitalist ---
HPI History of Present Illness: HPI/Chief Complaint CC: SOB HPI: This is a 61 yoWM pt with no local physician who woke up unable to breath adequately after sleeping about 1 hour. 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 Pt confirms having Neb treatments at home. Denies using [facility] or having a PCP. Pt was advised to go to [facility] in [place] because of his condition. Pt's CXR was discussed and looks good. Pt states that these episodes come on so suddenly Physical exam stable. Pt confirms [facility] in [place]. Pt denies steroid use on a regular basis and will need it for the time being. Pt confirms feeling nervous when he has episodes Pt states that his ex can possibly pick him up Scribed by Julia Mendoza under the direct supervision of Dr. Albert. Source: patient Exam Limitations: no limitations Date Seen 03/14/17 Time Seen by Provider: 10:00 Attending Physician Carmita Albert DO PCP No,Local Physician Referring Physician Date of Admission Mar 14, 2017 at 01:34 Home Medications & Allergies Home Medications Reviewed patient Home Medication Reconciliation Form Allergies Allergies Coded Allergies No Known Drug Allergies (Verified03/14/17) Past Hiirgnm-Ksfrkg-Hrjupv Hx Patient Social History Marrital Status: cohabiting (with ex ) Employed/Student: unemployed Alcohol Use: Denies Use Recreational Drug Use: No Smoking Status: Former Smoker Type Used: Cigarettes 2nd Hand Smoke Exposure: No Physical Abuse Screen: No Sexual Abuse: No Recent Foreign Travel: No Contact w/other who traveled: No Recent Hopitalizations: No Recent Infectious Disease Expo: No Immunizations Up To Date Tetanus Booster (TDap): Unknown Date of Pneumonia Vaccine: Jun 14, 2016 Date of Influenza Vaccine: Jun 14, 2016 Seasonal Allergies Seasonal Allergies: No Surgeries HX Surgeries: Yes (RIGHT ARM--ABOVE ELBOW TRAUMATIC AMPUTATION 2006) Surgeries: Orthopedic Respiratory Hx Respiratory Disorders: Yes Respiratory Disorders: COPD, Pneumonia Cardiovascular Hx Cardiovascular Disorders: No Cardiac Disorders: Hypertension Neurological Hx Neurological Disorders: Yes Neurological Disorders: Neuropathy Reproductive System Hx Reproductive Disorders: No Sexually Transmitted Disease: No HIV/AIDS: No Genitourinary Hx Genitourinary Disorders: No Gastrointestinal Hx Gastrointestinal Disorders: No Musculoskeletal Hx Musculoskeletal Disorders: Yes (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) Musculoskeletal Disorders: Amputee Endocrine Hx Endocrine Disorders: No HEENT HX ENT Disorders: No Cancer Hx Cancer: No Psychosocial Hx Psychiatric Problems: No Behavioral Health Disorders: PTSD Integumentary HX Skin/Integumentary Disorder: No Blood Transfusions Hx Blood Disorders: No Adverse Reaction to a Blood Tr: No Reviewed Nursing Assessment Reviewed/Agree w Nursing PMH: Yes Family Medical History Family Hx: Alzheimer's disease 19 MOTHER Asthma 19 MOTHER Review of Systems Constitutional: see HPI, weakness EENTM: no symptoms reported Respiratory: short of breath Cardiovascular: no symptoms reported Gastrointestinal: no symptoms reported Genitourinary: no symptoms reported Musculoskeletal: no symptoms reported Skin: no symptoms reported Psychiatric/Neurological: Anxiety All Other Systems Reviewed Negative Unless Noted: Yes Physical Exam Physical Exam Vital Signs Vital Sign - Last 12Hours 03/14/17 03/14/17 00:33 00:44 Temp 98.9 Pulse 101 Resp 20 B/P (MAP) 117/89 Pulse Ox 94 O2 Delivery Nasal Cannula O2 Flow Rate 4.00 Capillary Refill : Less Than 3 Seconds General Appearance: No Apparent Distress, WD/WN, Chronically ill, Thin Eyes: Bilateral Eye Normal Inspection, Bilateral Eye PERRL HEENT: PERRL/EOMI, Normal ENT Inspection, Pharynx Normal Neck: Full Range of Motion, Normal Inspection, Non Tender, Supple, Carotid Bruit Respiratory: Chest Non Tender, Normal Breath Sounds, No Accessory Muscle Use, No Respiratory Distress, Decreased Breath Sounds Cardiovascular: Regular Rate, Rhythm, No Edema, No Gallop, No JVD, No Murmur, Normal Peripheral Pulses Gastrointestinal: Normal Bowel Sounds, No Organomegaly, No Pulsatile Mass, Non Tender, Soft Back: Normal Inspection, No CVA Tenderness, No Vertebral Tenderness Extremity: Normal Capillary Refill, Normal Inspection, Normal Range of Motion, Non Tender, No Calf Tenderness, No Pedal Edema Neurologic/Psychiatric: Alert, Oriented x3, No Motor/Sensory Deficits, Normal Mood/Affect Skin: Normal Color, Warm/Dry Lymphatic: No Adenopathy Results Results/Procedures Lab Laboratory Tests 03/14/17 00:39 Assessment/Plan Admission Diagnosis Assessment: Severe COPD w/exacerbation Right above elbow amputation hx Frail status and overall poor prognosis Anxiety Assessment and Plan Plan: Follow up with [facility] to establish PCP Meds to [facility] Maintain O2 and Nebs Obtain appt with Dr Navarrete for severe COPD Take Xanax for anxiety that leads to shortness of breath Clinical Quality Measures DVT/VTE Risk/Contraindication: Risk Factor Score Per Nursin RFS Level Per Nursing on Admit: 4+=Very High CARMITA ALBERT DO Mar 14, 2017 10:34
[2017-03-14] MEDS ORDERED: RT-ALBUTEROL HFA (VENTOLIN) PER PUFF IH PRN (10:45)
[2017-03-14] MEDS ORDERED: ASPIRIN E.C. 325 MG (ECOTRIN) TABLET PO PRN (10:45)
[2017-03-14] MEDS ORDERED: RT-ALBUTEROL SULF 2.5 MG/3 ML PRE-MIX VIAL INH PRN ×2 (10:45→11:00)
[2017-03-14] MEDS ORDERED: PRED10TA22 PO (10:48)
[2017-03-14] MEDS ORDERED: ALPR0.25 PO (10:48)
[2017-03-14 12:00] VITALS: BP 96/54
[2017-03-14 13:30] VITALS: BP 96/54
== END 2017-03-14 13:41 | disposition home or self-care (01) | DRG 192 ==
LOC: EDUNIT# 00:31 → ER 00:33 → 4TH 01:34
PROVIDERS: ADMIT Internal Medicine; ATTEND Internal Medicine
DX: J44.1 Chronic obstructive pulmonary disease with (acute) exacerbation (principal); I10 Essential (primary) hypertension; F41.9 Anxiety disorder, unspecified; G62.9 Polyneuropathy, unspecified; F43.10 Post-traumatic stress disorder, unspecified; Z99.81 Dependence on supplemental oxygen; Z89.221 Acquired absence of right upper limb above elbow
CPT/HCPCS: 36415; 71010; 80053; 83605; 85025; 86141; 87040; 93005; 94640; 94760; 96360

== ENCOUNTER 2017-08-20 15:06 | Inpatient (IN) | payer MEDICARE ==
[~2017-08-20] VITALS: Ht 180.3 cm; Wt 49.6 kg
[~2017-08-20 15:06] MED LIST changes: +ALPR0.25 PO; +RT-ALBUINH IH
[2017-08-20] MEDS ORDERED: RT-ALBUTEROL/IPRATROPIUM 3 ML (DUONEB) VIAL ONE ×2 (15:16→16:58)
[2017-08-20] MEDS ORDERED: RT-ALBUTEROL SULF 2.5 MG/3 ML PRE-MIX VIAL INH ONE ×2 (15:17→16:58)
[2017-08-20] MEDS ORDERED: methylPREDNISolone 125 MG (Solu-MEDROL) VIAL IV STA (15:20)
--- NOTE | 2017-08-20 15:55 | ED Respiratory ---
General Chief Complaint: Respiratory Problems Stated Complaint: COPD Nursing Triage Note: C/O progressive soa last 2 days. Hx of COPD. Source: patient, EMS Exam Limitations: no limitations History of Present Illness Time seen by provider: 15:09 Initial Comments Here by EMS with report of shortness of air over the last 2 days. Does have significant history of COPD with exacerbations previously. States the albuterol helps a little bit at home but was not helping. Did quit smoking a couple months ago. Denies fever or chills. Denies vomiting or diarrhea. Denies any significant chest pain. Did receive 1 DuoNeb by EMS in route which did help a little bit but still remains quite short of breath. Timing/Duration: getting worse, other (2 days) Severity: moderate, severe Prior Episodes/Possible Cause: occasional episodes Modifying Factors: Worse With Activity, Improves With Albuterol Nebulizer, Improves With Oxygen, Improves With Rest Associated Symptoms: No chest pain/soreness, cough, No fever/chills, nasal congestion, shortness of breath, wheezing Allergies and Home Medications Allergies Coded Allergies: No Known Drug Allergies (Verified , 03/14/17) Home Medications Albuterol Sulfate 1.25 Mg/3 Ml Vial.neb, 1.25 MG NEB Q6H PRN for SHORTNESS OF BREATH, (Reported) Albuterol Sulfate 1 Puff Puff, 2 PUFF IH Q6H PRN for SHORTNESS OF BREATH, ( Reported) 1 PUFF = 90 MCG Alprazolam 0.25 Mg Tablet, 0.25 MG PO TID PRN for AIR HUNGER, #30 Prescribed by: MARYLOU DUNN on 03/14/17 1048 Aspirin 325 Mg Tablet.dr, 325 MG PO DAILY PRN for HEADACHE, (Reported) Prednisone 10 Mg Tab.ds.pk, 10 MG PO DAILY, #21 Take 6 tabs(60mg)daily,decrease by 1 tab(10MG)daily. Prescribed by: MARYLOU DUNN on 03/14/17 1048 Constitutional: see HPI, No chills, No fever EENTM: no symptoms reported Respiratory: cough, short of breath, wheezing Cardiovascular: no symptoms reported Gastrointestinal: No abdominal pain, No nausea, No vomiting Genitourinary: no symptoms reported Musculoskeletal: no symptoms reported Skin: no symptoms reported All Other Systems Reviewed Negative Unless Noted: Yes Past Bumoqam-Jonnqc-Pmvomz Hx Patient Social History Alcohol Use: Denies Use Recreational Drug Use: No Smoking Status: Former Smoker Type Used: Cigarettes Former Smoker, Quit: December 31, 2016 2nd Hand Smoke Exposure: No Recent Foreign Travel: No Contact w/Someone Who Travel: No Recent Infectious Disease Expo: No Recent Hopitalizations: No Immunizations Up To Date Tetanus Booster (TDap): Unknown Date of Pneumonia Vaccine: Jun 14, 2016 Date of Influenza Vaccine: Jun 14, 2016 Seasonal Allergies Seasonal Allergies: No Surgeries History of Surgeries: Yes Surgeries: Orthopedic Respiratory History of Respiratory Disorde: Yes Respiratory Disorders: COPD Currently Using CPAP: No Currently Using BIPAP: No Cardiovascular History of Cardiac Disorders: No Cardiac Disorders: Hypertension Neurological History of Neurological Disord: No Neurological Disorders: Neuropathy Reproductive System Hx Reproductive Disorders: No Sexually Transmitted Disease: No HIV/AIDS: No Genitourinary History of Genitourinary Disor: No Gastrointestinal History of Gastrointestinal Di: No Musculoskeletal History of Musculoskeletal Dis: Yes Musculoskeletal Disorders: Amputee Endocrine History of Endocrine Disorders: No HEENT History of HEENT Disorders: No Cancer History of Cancer: No Psychosocial History of Psychiatric Problem: No Behavioral Health Disorders: PTSD Integumentary History of Skin or Integumenta: No Blood Transfusions History of Blood Disorders: No Adverse Reaction to a Blood Tr: No Reviewed Nursing Assessment Reviewed/Agree w Nursing PMH: Yes Family Medical History Significant Family History: No Pertinent Family Hx Family Medial History: Alzheimer's disease 19 MOTHER Asthma 19 MOTHER Physical Exam Vital Signs Vital Sign - Last 12Hours 08/20/17 08/20/17 15:06 15:23 Temp 98.2 Pulse 108 Resp 18 B/P (MAP) 110/93 (99) Pulse Ox 98 O2 Delivery Room Air O2 Flow Rate 2.00 Capillary Refill : Less Than 3 Seconds General Appearance: WD/WN, mild distress (respiratory) HEENT: PERRL/EOMI, pharynx normal Neck: full range of motion, supple Respiratory: decreased breath sounds, accessory muscle use, wheezing, expiration Cardiovascular: no murmur, tachycardia Gastrointestinal: non tender, soft Extremities: non-tender, normal inspection, other (right above the elbow amputation) Neurologic/Psychiatric: alert, oriented x 3 Skin: normal color, warm/dry Focused Exam Evaluation Lactate Level Laboratory Tests 08/20/17 15:44: Lactic Acid Level 1.83 Lactic Acid Level Laboratory Tests Test 08/20/17 15:44 Lactic Acid Level 1.83 MMOL/L (0.50-2.00) Progress/Results/Core Measures Suspected Sepsis Recent Fever Within 48 Hours: No Infection Criteria Present: Suspected New Infection New/Unexplained Altered Menta: No Sepsis Screen: No Definite Risk Sepsis Diagnosis: SIRS Temperature:98.2 Pulse: 108 Respiratory Rate: 18 Laboratory Tests 08/20/17 15:44: White Blood Count 6.6 Blood Pressure 110 /93 Mean: 99 Laboratory Tests 08/20/17 15:44: Lactic Acid Level 1.83 Laboratory Tests 08/20/17 15:44: Creatinine 0.90, INR Comment 1.1, Platelet Count 173, Total Bilirubin 0.5 Results/Orders Lab Results Laboratory Tests Test 08/20/17 15:44 Range/Units White Blood Count 6.6 4.3-11.0 10^3/uL Red Blood Count 5.12 4.35-5.85 10^6/uL Hemoglobin 14.4 13.3-17.7 G/DL Hematocrit 42 40-54 % Mean Corpuscular Volume 83 80-99 FL Mean Corpuscular Hemoglobin 28 25-34 PG Mean Corpuscular Hemoglobin Concent 34 32-36 G/DL Red Cell Distribution Width 13.3 10.0-14.5 % Platelet Count 173 130-400 10^3/uL Mean Platelet Volume 10.3 7.4-10.4 FL Neutrophils (%) (Auto) 83 H 42-75 % Lymphocytes (%) (Auto) 9 L 12-44 % Monocytes (%) (Auto) 7 0-12 % Eosinophils (%) (Auto) 0 0-10 % Basophils (%) (Auto) 0 0-10 % Neutrophils # (Auto) 5.5 1.8-7.8 X 10^3 Lymphocytes # (Auto) 0.6 L 1.0-4.0 X 10^3 Monocytes # (Auto) 0.5 0.0-1.0 X 10^3 Eosinophils # (Auto) 0.0 0.0-0.3 10^3/uL Basophils # (Auto) 0.0 0.0-0.1 10^3/uL Prothrombin Time 14.0 12.2-14.7 SEC INR Comment 1.1 0.8-1.4 Activated Partial Thromboplast Time 30 24-35 SEC Sodium Level 137 135-145 MMOL/L Potassium Level 3.8 3.6-5.0 MMOL/L Chloride Level 99 98-107 MMOL/L Carbon Dioxide Level 27 21-32 MMOL/L Anion Gap 11 5-14 MMOL/L Blood Urea Nitrogen 21 H 7-18 MG/DL Creatinine 0.90 0.60-1.30 MG/DL Estimat Glomerular Filtration Rate > 60 BUN/Creatinine Ratio 23 Glucose Level 102 70-105 MG/DL Lactic Acid Level 1.83 0.50-2.00 MMOL/L Calcium Level 9.5 8.5-10.1 MG/DL Total Bilirubin 0.5 0.1-1.0 MG/DL Aspartate Amino Transf (AST/SGOT) 25 5-34 U/L Alanine Aminotransferase (ALT/SGPT) 36 0-55 U/L Alkaline Phosphatase 55 40-136 U/L Total Protein 7.0 6.4-8.2 GM/DL Albumin 4.2 3.2-4.5 GM/DL My Orders Orders - MARTINA MADERA MD Albuterol/Ipra Inhalation Soln (Duoneb I (08/20/17 15:16) Albuterol Pre-Mix Nebs (Rt) (Proventil (08/20/17 15:17) Cbc With Automated Diff (08/20/17 15:14) Comprehensive Metabolic Panel (08/20/17 15:14) Lactic Acid Analyzer (08/20/17 15:14) Blood Culture (08/20/17 15:14) Sputum Culture (08/20/17 15:14) Ua Culture If Indicated (08/20/17 15:14) Protime With Inr (08/20/17 15:14) Partial Thromboplastin Time (08/20/17 15:14) O2 (08/20/17 15:14) Vital Signs Adult Sepsis Patie Q1H (08/20/17 15:14) Remove Rings In Anticipation O (08/20/17 15:14) Methylprednisolone Sod Succ (Solu-Medrol (08/20/17 15:20) Chest Pa/Lat (2 View) (08/20/17 15:55) Albuterol Pre-Mix Nebs (Rt) (Proventil (08/20/17 16:58) Albuterol/Ipra Inhalation Soln (Duoneb I (08/20/17 17:00) Svn Sm Volume Nebulizer Rt-Rfs (08/20/17 16:58) Svn Sm Volume Nebulizer Rt-Rfs (08/20/17 16:58) Albuterol Pre-Mix Nebs (Rt) (Proventil (08/20/17 16:58) Albuterol/Ipra Inhalation Soln (Duoneb I (08/20/17 16:58) Medications Given in ED Current Medications Medications Dose Ordered Sig/Selena Route Start Time Stop Time Status Last Admin Dose Admin Albuterol Sulfate 2.5 mg STK-MED ONCE INH 08/20/17 15:17 08/20/17 15:19 DC 08/20/17 15:22 5 MG Albuterol/ Ipratropium 3 ml STK-MED ONCE .ROUTE 08/20/17 15:16 08/20/17 15:18 DC 08/20/17 15:22 3 ML Vital Signs/I&O Vital Sign - Last 12Hours 08/20/17 08/20/17 15:06 15:23 Temp 98.2 Pulse 108 Resp 18 B/P (MAP) 110/93 (99) Pulse Ox 98 94 O2 Delivery Room Air Nasal Cannula O2 Flow Rate 2.00 Capillary Refill : Less Than 3 Seconds Blood Pressure Mean: 99 Progress Note : Progress Note Seen and evaluated. Albuterol treatments 3. Labs, blood cultures and chest x- ray ordered. Solu-Medrol 125 mg IV ordered. Monitor patient. 1700: Patient with continued difficulty with respiratory effort although improved. Continuous albuterol treatment initiated. I did discuss the case with Dr. Navarrete 0 and he accepts patient in consult. I did discuss the case with Dr. Dunn 1703. She says patient for admission, inpatient status. Patient agrees with plan. Diagnostic Imaging Diagonstic Imaging: Xray Plain Films/CT/US/NM/MRI: chest Comments NAME: NIRMAL SEN [facility] REC#: [id number] PT STATUS: REG ER : 1955 PHYSICIAN: MARTINA MADERA MD ADMIT DATE: 08/20/17/ER Signed Date of Exam: 08/20/17 CHEST PA/LAT (2 VIEW) PA and lateral views of the chest. INDICATION: Shortness of breath and cough. FINDINGS: The lungs are hyperinflated with no focal infiltrate. No effusion or pneumothorax. The mediastinum and juan francisco appear unremarkable. IMPRESSION: Hyperinflated clear lungs. Dictated by: Dictated on workstation # [id number] Dict: 08/20/17 1622 Trans: 08/20/17 1656 Interpreted by: MELISSA REYES MD Electronically signed by: MELISSA REYES MD 08/20/17 1656 Departure Communication (Admissions) Time/Spoke to Admitting Phy: 17:03 Time/Spoke to Consulting Phy: 16:50 Impression Impression: Primary Impression: Asthma exacerbation in COPD Disposition: ADMITTED INPATIENT Condition: Stable Admissions Decision to Admit Reason: Admit from ER (General) Decision to Admit/Date: Aug 20, 2017 Time/Decision to Admit Time: 16:50 Departure-Patient Inst. Referrals: NO,LOCAL PHYSICIAN (PCP/Family) Primary Care Physician MARTINA MADERA MD Aug 20, 2017 15:55
[2017-08-20 16:05] LABS: BASOPHILS % (AUTO) 0 % (0-10); EOSINOPHILS % (AUTO) 0 % (0-10); LYMPHOCYTES # (AUTO) 0.6 X 10^3 (1.0-4.0); LYMPHOCYTES % (AUTO) 9 % (12-44); MEAN CORPUSCULAR HEMOGLOBIN 28 PG (25-34); MEAN CORPUSCULAR HGB CONC 34 G/DL (32-36); MEAN CORPUSCULAR VOLUME 83 FL (80-99); MEAN PLATELET VOLUME 10.3 FL (7.4-10.4); MONOCYTES # (AUTO) 0.5 X 10^3 (0.0-1.0); MONOCYTES % (AUTO) 7 % (0-12); NEUTROPHILS # (AUTO) 5.5 X 10^3 (1.8-7.8); NEUTROPHILS % (AUTO) 83 % (42-75); PLATELET COUNT 173 10^3/uL (130-400); RED BLOOD COUNT 5.12 10^6/uL (4.35-5.85); RED CELL DISTRIBUTION WIDTH 13.3 % (10.0-14.5); WHITE BLOOD COUNT 6.6 10^3/uL (4.3-11.0)
[2017-08-20 16:20] LABS: INR 1.1 (0.8-1.4)
--- NOTE | 2017-08-20 16:31 | Diagnostic Imaging Report ---
PA and lateral views of the chest. INDICATION: Shortness of breath and cough. FINDINGS: The lungs are hyperinflated with no focal infiltrate. No effusion or pneumothorax. The mediastinum and juan francisco appear unremarkable. IMPRESSION: Hyperinflated clear lungs. Dictated by: Dictated on workstation # [id number]
[2017-08-20 16:33] LABS: ALANINE AMINOTRANSFERASE 36 U/L (0-55); ALBUMIN 4.2 GM/DL (3.2-4.5); ANION GAP 11 MMOL/L (5-14); ASPARTATE AMINO TRANSFERASE 25 U/L (5-34); BILIRUBIN,TOTAL 0.5 MG/DL (0.1-1.0); BLOOD UREA NITROGEN 21 MG/DL (7-18); BUN/CREATININE RATIO 23; CALCIUM 9.5 MG/DL (8.5-10.1); CARBON DIOXIDE 27 MMOL/L (21-32); CHLORIDE 99 MMOL/L (98-107); GFR ESTIMATED > 60; GLUCOSE 102 MG/DL (70-105); POTASSIUM 3.8 MMOL/L (3.6-5.0); SODIUM 137 MMOL/L (135-145)
[2017-08-20] MEDS ORDERED: RT-ALBUTEROL SULF 2.5 MG/3 ML PRE-MIX VIAL INH STA (16:58)
[2017-08-20] MEDS ORDERED: RT-ALBUTEROL/IPRATROPIUM 3 ML (DUONEB) VIAL INH ONE (17:00)
[2017-08-20] MEDS ORDERED: ALBU2.5V4 IH (18:05)
[2017-08-20 18:43] VITALS: BP 103/65
[2017-08-20 18:49] VITALS: BP 110/93
[2017-08-20] MEDS ORDERED: CATHETER FLUSH 10 ML SYR IV PRN (19:15)
[2017-08-20 19:25] VITALS: BP 105/60
[2017-08-20] MEDS: NS IV 1000 ML 1,000 ML IV SCH (19:42)
[2017-08-20] MEDS: methylPREDNISolone 40 MG/ML (Solu-MEDROL) VIAL IV SCH (20:51)
[2017-08-20] MEDS: RT-ALBUTEROL/IPRATROPIUM 3 ML (DUONEB) VIAL INH SCH (21:36)
[2017-08-20] MEDS: RT-ADVAIR HFA 115/21 MCG PER PUFF IH SCH (21:37)
[2017-08-21] VITALS (21 sets, daily range): BP systolic 92–138; BP diastolic 58–88
[2017-08-21] MEDS: methylPREDNISolone 40 MG/ML (Solu-MEDROL) VIAL IV SCH ×4 (02:17→20:22)
[2017-08-21] MEDS: RT-ALBUTEROL/IPRATROPIUM 3 ML (DUONEB) VIAL INH SCH ×8 (02:37→22:34)
[2017-08-21] MEDS: RT-ALBUTEROL/IPRATROPIUM 3 ML (DUONEB) VIAL INH PRN ×3 (04:54→10:38)
[2017-08-21 05:57] LABS: BASOPHILS % (AUTO) 0 % (0-10); EOSINOPHILS % (AUTO) 0 % (0-10); LYMPHOCYTES # (AUTO) 0.3 X 10^3 (1.0-4.0); LYMPHOCYTES % (AUTO) 7 % (12-44); MEAN CORPUSCULAR HEMOGLOBIN 29 PG (25-34); MEAN CORPUSCULAR HGB CONC 34 G/DL (32-36); MEAN CORPUSCULAR VOLUME 83 FL (80-99); MEAN PLATELET VOLUME 10.4 FL (7.4-10.4); MONOCYTES # (AUTO) 0.1 X 10^3 (0.0-1.0); MONOCYTES % (AUTO) 2 % (0-12); NEUTROPHILS # (AUTO) 3.1 X 10^3 (1.8-7.8); NEUTROPHILS % (AUTO) 91 % (42-75); PLATELET COUNT 172 10^3/uL (130-400); WHITE BLOOD COUNT 3.5 10^3/uL (4.3-11.0)
[2017-08-21 06:14] LABS: ALANINE AMINOTRANSFERASE 35 U/L (0-55); ALBUMIN 3.8 GM/DL (3.2-4.5); ANION GAP 13 MMOL/L (5-14); ASPARTATE AMINO TRANSFERASE 22 U/L (5-34); BILIRUBIN,TOTAL 0.3 MG/DL (0.1-1.0); BLOOD UREA NITROGEN 21 MG/DL (7-18); BUN/CREATININE RATIO 28; CALCIUM 8.9 MG/DL (8.5-10.1); CARBON DIOXIDE 23 MMOL/L (21-32); CHLORIDE 105 MMOL/L (98-107); CREATININE SERUM 0.76 MG/DL (0.60-1.30); GFR ESTIMATED > 60; GLUCOSE 153 MG/DL (70-105); POTASSIUM 3.7 MMOL/L (3.6-5.0); SODIUM 141 MMOL/L (135-145); TOTAL PROTEIN 6.8 GM/DL (6.4-8.2)
[2017-08-21] MEDS: RT-ADVAIR HFA 115/21 MCG PER PUFF IH SCH ×2 (06:28→21:32)
[2017-08-21 09:37] LABS: ABG BASE EXCESS 0.4 MMOL/L (-2.5-2.5); ABG HCO3 26 MMOL/L (23-27); ABG OXYGEN SATURATION 95 % (94-100); ABG PCO2 53 MMHG (35-45); ABG PO2 72 MMHG (79-93); ABG TCO2 27.7 MMOL/L (21.0-31.0)
[2017-08-21 09:39] LABS: ABG PH 7.31 (7.37-7.43)
[2017-08-21 09:40] LABS: ALLENS TEST YES-POS; PATIENT TEMP 97.8
--- NOTE | 2017-08-21 09:40 | Pulmonary Consultation ---
History of Present Illness History of Present Illness Date of Consultation 08/21/17 09:34 Time Seen by Provider: 09:34 Date of Admission History of Present Illness 62yo with hx of COPD pt presented via EMS secondary to worsening SOB over the last 2 days. pt has a hx of COPDAE and quit smoking 2 months ago. Denies fever/ chills. Duoneb SVNS did improved SOB upon ED admisson. This morning pt's SOB is worse and has been calling for extra SVN treatments. CXR shows no acute change. NO leukocytosis and no fever. I am consulted for pulmonary management. Allergies and Home Medications Allergies Coded Allergies: No Known Drug Allergies (Verified , 03/14/17) Home Medications Albuterol Sulfate 1 Puff Puff, 2 PUFF IH Q4H PRN for SHORTNESS OF BREATH, ( Reported) 1 PUFF = 90 MCG Albuterol Sulfate 2.5 Mg/3 Ml Vial.neb, 2.5 MG IH TID PRN for SHORTNESS OF BREATH, (Reported) Past Kxhmkul-Dxbvvg-Inlagw Hx Patient Social History Alcohol Use: Denies Use Recreational Drug Use: No Smoking Status: Former Smoker Type Used: Cigarettes Former Smoker, Quit: Apr 02, 2017 2nd Hand Smoke Exposure: No Recent Foreign Travel: No Contact w/Someone Who Travel: No Recent Infectious Disease Expo: No Recent Hopitalizations: No Immunizations Up To Date Tetanus Booster (TDap): Unknown Date of Pneumonia Vaccine: Jun 14, 2016 Date of Influenza Vaccine: Jun 02, 2017 Seasonal Allergies Seasonal Allergies: No Surgeries History of Surgeries: Yes Surgeries: Orthopedic Respiratory History of Respiratory Disorde: Yes Respiratory Disorders: COPD Currently Using CPAP: No Currently Using BIPAP: No Cardiovascular History of Cardiac Disorders: No Cardiac Disorders: Hypertension Neurological History of Neurological Disord: No Neurological Disorders: Neuropathy Reproductive System Hx Reproductive Disorders: No Sexually Transmitted Disease: No HIV/AIDS: No Genitourinary History of Genitourinary Disor: No Gastrointestinal History of Gastrointestinal Di: No Musculoskeletal History of Musculoskeletal Dis: Yes (RIGHT ABOVE ELBOW AMPUTEE) Musculoskeletal Disorders: Amputee Endocrine History of Endocrine Disorders: No HEENT History of HEENT Disorders: No Cancer History of Cancer: No Psychosocial History of Psychiatric Problem: No Behavioral Health Disorders: PTSD Integumentary History of Skin or Integumenta: No Blood Transfusions History of Blood Disorders: No Adverse Reaction to a Blood Tr: No Reviewed Nursing Assessment Reviewed/Agree w Nursing PMH: Yes Family Medical History Significant Family History: No Pertinent Family Hx Family Medial History: Alzheimer's disease 19 MOTHER Asthma 19 MOTHER Review of Systems Time Seen by Provider: 09:38 Constitutional: Weakness, Malaise, No: Fever, Chills, Sweats, Other Eyes: No: Pain, Vision change, Conjunctivae inflammation, Eyelid inflammation, Other, Redness ENT: No: Ear pain, Ear discharge, Nose pain, Nose discharge, Nose congestion, Mouth pain, Mouth swelling, Throat pain, Throat swelling, Other Respiratory: Cough, Dry, Shortness of breath, SOB with excertion, Wheezing Cardiovascular: Paroxysmal Noc. Dyspnea Gastrointestinal: No: Nausea, Vomiting, Abdominal Pain, Diarrhea, Constipation , Melena, Hematochezia, Other Neurological: Weakness, Incoordination, Confusion Exam Exam Vital Signs Date Time Temp Pulse Resp B/P (MAP) Pulse Ox O2 Delivery O2 Flow Rate FiO2 08/21/17 08:00 97.0 102 22 128/72 (90) 100 NIV Bilevel 08/21/17 07:15 99 18 100 45.00 08/21/17 06:27 96 98 45.00 08/21/17 04:55 110 99 45.00 08/21/17 04:00 96.8 92 18 128/58 (81) 99 Nasal Cannula 5.00 08/21/17 02:37 95 Nasal Cannula 5.00 08/21/17 00:00 97.8 78 18 111/59 (76) 96 Nasal Cannula 5.00 5.00 08/20/17 21:44 Nasal Cannula 5.00 08/20/17 21:39 98 Nasal Cannula 5.00 08/20/17 21:00 Nasal Cannula 5.00 08/20/17 19:25 98.4 105 20 105/60 (75) 100 Nasal Cannula 6.00 08/20/17 18:55 High Flow N/C 6.00 08/20/17 18:49 108 97 28 08/20/17 18:43 98.1 123 24 103/65 (78) 95 Nasal Cannula 6.00 08/20/17 17:50 98.2 90 18 97 Nasal Cannula 2.00 08/20/17 16:58 97 Nasal Cannula 2.00 08/20/17 15:23 94 Nasal Cannula 2.00 08/20/17 15:06 94 2.00 08/20/17 15:06 98.2 108 18 110/93 (99) 98 Room Air I & O 08/21/17 07:00 Intake Total 590 ml Output Total 600 ml Balance -10 ml General Appearance: Moderate Distress HEENT: PERRL/EOMI, Pharynx Normal Respiratory: Accessory Muscle Use, Decreased Breath Sounds Cardiovascular: Tachycardia Capillary Refill: Less Than 3 Seconds Gastrointestinal: non tender, soft Neurologic/Psychiatric: Alert Skin: Normal Color, Warm/Dry Lymphatic: No Adenopathy Results Lab Laboratory Tests 08/20/17 15:44 08/21/17 05:11 Assessment/Plan Assessment/Plan COPDAE with acute on chronic respiratory failure -Noninvasive ventilation -Pt will benefit from home vent to mask -SVNs -solumedrol -oxygen hx of tobacco use 255 PT is doing worse c/w admission. Transfer pt to ICU with bipap Clinical Quality Measures DVT/VTE Risk/Contraindication: Risk Factor Score Per Nursin RFS Level Per Nursing on Admit: 4+=Very High DIMAS RIOS DO Aug 21, 2017 09:40
--- NOTE | 2017-08-21 10:58 | History & Physical-Hospitalist ---
HPI History of Present Illness: HPI/Chief Complaint CC: Dyspnea HPI: This is a 62yoWM clinic patient of [facility] who is known to me from prior hospital stays in the past for AECOPD requiring either intubation or biPAP who stopped smoking a few months ago who presents to the ER w/c/o dyspnea. Pt reports feeling wheezy for a few days prior to presenting to the ER and began to feel worse and reported to the ER in acute respiratory failure. Pt was given 1 hour long Neb treatment with improved status and was admitted for IV steroids and pulmonary consultation. He is currently being transferred to the ICU due to decline in respiratory function and hypercapnia and hypoxia and will require biPAP. Source: patient Exam Limitations: clinical condition (tachypnea) Date Seen 08/21/17 Time Seen by Provider: 10:00 Attending Physician Juan Navarrete DO PCP No,Local Physician Referring Physician Date of Admission Aug 20, 2017 at 17:12 Home Medications & Allergies Home Medications Reviewed patient Home Medication Reconciliation Form Allergies Allergies Coded Allergies No Known Drug Allergies (Verified03/14/17) Past Rfnwzej-Fssvsw-Wmofzr Hx Patient Social History Employed/Student: unemployed Alcohol Use: Denies Use Recreational Drug Use: No Smoking Status: Former Smoker Former Smoker, Quit: Apr 02, 2017 Type Used: Cigarettes 2nd Hand Smoke Exposure: No Physical Abuse Screen: No Sexual Abuse: No Recent Foreign Travel: No Contact w/other who traveled: No Recent Hopitalizations: No Recent Infectious Disease Expo: No Immunizations Up To Date Tetanus Booster (TDap): Unknown Date of Pneumonia Vaccine: Jun 14, 2016 Date of Influenza Vaccine: Jun 02, 2017 Seasonal Allergies Seasonal Allergies: No Surgeries Yes Orthopedic Respiratory Yes COPD, Pneumonia Currently Using CPAP: No Currently Using BIPAP: No Cardiovascular Yes Hypertension Neurological Yes Neuropathy Reproductive System Hx Reproductive Disorders: No Sexually Transmitted Disease: No HIV/AIDS: No Genitourinary No Gastrointestinal No Musculoskeletal Yes (RIGHT ABOVE ELBOW AMPUTEE) Amputee Endocrine History of Endocrine Disorders: No HEENT History of HEENT Disorders: No Cancer No Psychosocial History of Psychiatric Problem: No Behavioral Health Disorders: PTSD Integumentary History of Skin or Integumenta: No Blood Transfusions History of Blood Disorders: No Adverse Reaction to a Blood Tr: No Reviewed Nursing Assessment Reviewed/Agree w Nursing PMH: Yes Family Medical History Significant Family History: No Pertinent Family Hx Family Hx: Alzheimer's disease 19 MOTHER Asthma 19 MOTHER Review of Systems Constitutional: see HPI, weakness EENTM: no symptoms reported Respiratory: cough, dyspnea on exertion, short of breath, wheezing Cardiovascular: no symptoms reported Gastrointestinal: no symptoms reported Genitourinary: no symptoms reported Musculoskeletal: no symptoms reported Skin: no symptoms reported Psychiatric/Neurological: No Symptoms Reported All Other Systems Reviewed Negative Unless Noted: Yes Physical Exam Physical Exam Vital Signs Vital Sign - Last 12Hours 08/20/17 08/20/17 15:06 18:49 Temp 98.2 Pulse 108 Resp 18 B/P (MAP) 110/93 (99) Pulse Ox 98 O2 Delivery Room Air O2 Flow Rate 2.00 FiO2 28 Capillary Refill : Less Than 3 Seconds General Appearance: Chronically ill, Moderate Distress (due to mild tachypnea) , Thin HEENT: PERRL/EOMI, Normal ENT Inspection, Pharynx Normal Neck: Full Range of Motion, Normal Inspection, Non Tender, Supple Respiratory: Chest Non Tender, Accessory Muscle Use, Crackles, Decreased Breath Sounds, Rales, Respiratory Distress, Wheezing Cardiovascular: No Edema, No Gallop, No JVD, No Murmur, Normal Peripheral Pulses, Tachycardia Gastrointestinal: Normal Bowel Sounds, No Organomegaly, No Pulsatile Mass, Non Tender, Soft Back: Normal Inspection, No CVA Tenderness, No Vertebral Tenderness Extremity: Normal Capillary Refill, Normal Inspection, Normal Range of Motion, Non Tender, No Calf Tenderness, No Pedal Edema Neurologic/Psychiatric: Alert, Oriented x3, No Motor/Sensory Deficits, Normal Mood/Affect Skin: Normal Color, Warm/Dry Lymphatic: No Adenopathy Results Results/Procedures Lab Laboratory Tests 08/20/17 15:44 08/21/17 05:11 Assessment/Plan Admission Diagnosis Assessment: Acute respiratory failure requiring transfer to ICU for biPAP and possible intubation Severe COPD with acute exacerbation Right above elbow amputee Previous smoker quit 4 months ago Neutropenia 3.5 today Assessment and Plan Plan: Appreciate Dr Navarrete's help BiPAP and transfer to ICU IV steroids Monitor closely Clinical Quality Measures DVT/VTE Risk/Contraindication: Risk Factor Score Per Nursin RFS Level Per Nursing on Admit: 4+=Very High MARYLOU DUNN DO Aug 21, 2017 10:58
[2017-08-21] MEDS: DEXMEDETOMIDINE INJECTION 200 MCG in NS (IVPB) 50 ML IV SCH ×2 (12:01→18:44)
[2017-08-21 13:17] LABS: ABG BASE EXCESS 1.1 MMOL/L (-2.5-2.5); ABG HCO3 26 MMOL/L (23-27); ABG OXYGEN SATURATION 99 % (94-100); ABG PCO2 46 MMHG (35-45); ABG PH 7.37 (7.37-7.43); ABG PO2 140 MMHG (79-93); ABG TCO2 27.4 MMOL/L (21.0-31.0)
[2017-08-21 13:18] LABS: ALLENS TEST YES-POS
[2017-08-21] MEDS: morphine INJ 4 MG/ML 1 ML (VIAL/SYRINGE) IVP PRN ×3 (13:46→20:54)
[2017-08-21] MEDS: NS IV 1000 ML 1,000 ML IV SCH (15:26)
[2017-08-21] MEDS: RT-BUDESONIDE NEBS 0.5 MG/2ML (PULMICORT) AMP INH SCH (21:27)
[2017-08-22] VITALS (30 sets, daily range): BP systolic 91–159; BP diastolic 45–98
[2017-08-22] MEDS: RT-ADVAIR HFA 115/21 MCG PER PUFF IH SCH ×3 (00:21→18:19)
[2017-08-22] MEDS: RT-ALBUTEROL/IPRATROPIUM 3 ML (DUONEB) VIAL INH SCH ×9 (00:21→21:06)
[2017-08-22] MEDS: DEXMEDETOMIDINE INJECTION 200 MCG in NS (IVPB) 50 ML IV SCH ×3 (00:51→19:46)
[2017-08-22] MEDS: morphine INJ 4 MG/ML 1 ML (VIAL/SYRINGE) IVP PRN ×3 (00:52→07:15)
[2017-08-22] MEDS: methylPREDNISolone 40 MG/ML (Solu-MEDROL) VIAL IV SCH ×4 (03:54→20:47)
[2017-08-22] MEDS ORDERED: PROPOFOL DRIP (ICU) 100 ML IV ONE (07:12)
[2017-08-22] MEDS ORDERED: MIDAZOLAM 5 MG/5 ML (VERSED) VIAL ONE (07:18)
[2017-08-22 07:21] LABS: ABG BASE EXCESS 1.5 MMOL/L (-2.5-2.5); ABG HCO3 32 MMOL/L (23-27); ABG OXYGEN SATURATION 99 % (94-100); ABG PO2 254 MMHG (79-93); ABG TCO2 35.1 MMOL/L (21.0-31.0)
[2017-08-22] MEDS: PROPOFOL DRIP (ICU) 100 ML IV SCH ×3 (07:22→22:19)
[2017-08-22 07:24] LABS: ABG PH 7.05 (7.37-7.43)
[2017-08-22 07:25] LABS: ABG PCO2 120 MMHG (35-45); ALLENS TEST YES-POS
[2017-08-22 07:26] LABS: PATIENT TEMP 98.9
[2017-08-22] MEDS: NS IV 1000 ML 1,000 ML IV SCH ×3 (07:45→16:50)
[2017-08-22] MEDS: RT-BUDESONIDE NEBS 0.5 MG/2ML (PULMICORT) AMP INH SCH ×2 (08:00→18:19)
--- NOTE | 2017-08-22 08:26 | Diagnostic Imaging Report ---
INDICATION: Intubation and line placement. Frontal chest obtained at 8:10 a.m. and is compared to 08/20/2017. FINDINGS: Heart is normal in size. There is severe COPD change with marked hyperinflation. There is no pneumothorax or pleural fluid. ET tube tip overlies mid trachea. NG tube tip is below the film. Right IJ central catheter tip overlies the mid SVC. IMPRESSION: Severe COPD changes. Life-support lines as above. No pneumothorax or pleural fluid or focal infiltrate. Dictated by: Dictated on workstation # [id number]
--- NOTE | 2017-08-22 10:29 | Progress Note-Hospitalist ---
Progress Note HPI/CC on Admission CC: Dyspnea HPI: This is a 62yoWM clinic patient of [facility] who is known to me from prior hospital stays in the past for AECOPD requiring either intubation or biPAP who stopped smoking a few months ago who presents to the ER w/c/o dyspnea. Pt reports feeling wheezy for a few days prior to presenting to the ER and began to feel worse and reported to the ER in acute respiratory failure. Pt was given 1 hour long Neb treatment with improved status and was admitted for IV steroids and pulmonary consultation. He is currently being transferred to the ICU due to decline in respiratory function and hypercapnia and hypoxia and will require biPAP. Progress Notes/Assess & Plan Date Seen 08/22/17 Time Seen by Provider: 09:30 Admission Dx/Process Assessment: Acute respiratory failure requiring transfer to ICU for biPAP and possible intubation Severe COPD with acute exacerbation Right above elbow amputee Previous smoker quit 4 months ago Neutropenia 3.5 today Diagonsis/Assessment & Plan Patient required intubation today Patient sedated and on assist control Checked meds and labs Very poor prognosis overall due to the severity of his COPD and overall chronic debility AFVSS, cachectic, on vent, unresponsive Tachy 92 Diminished all blanco No edema Assessment: Acute respiratory failure requiring transfer to ICU for biPAP yesterday but failed and was intubated this morning Severe COPD with acute exacerbation Right above elbow amputee Previous smoker quit 4 months ago Neutropenia Plan: Appreciate Dr Navarrete's help BiPAP and transfer to ICU IV steroids Monitor closely MARYLOU DUNN DO Aug 22, 2017 10:29
[2017-08-22 11:29] LABS: ABG BASE EXCESS -0.9 MMOL/L (-2.5-2.5); ABG HCO3 28 MMOL/L (23-27); ABG OXYGEN SATURATION 99 % (94-100); ABG PO2 126 MMHG (79-93); ABG TCO2 30.5 MMOL/L (21.0-31.0)
[2017-08-22 11:33] LABS: ABG PCO2 90 MMHG (35-45); ABG PH 7.12 (7.37-7.43); ALLENS TEST YES-POS; PATIENT TEMP 98.3
--- NOTE | 2017-08-22 13:08 | Pulmonary Procedures ---
Pulmonary Procedures Date of Procedure Date of Service: Aug 22, 2017 Lumen: triple (US guided) Central Line Procedure: betadine prep, sterile drapes applied, sterile dressing applied Position: internal jugular (R) Anesthesia: Lidocaine Volume Anesthetic (ccs): 5 Complications: none Post Position: sutured, good blood return, position confirmed w/ CXR DIMAS RIOS DO Aug 22, 2017 13:08
--- NOTE | 2017-08-22 13:09 | Pulmonary Procedures ---
Pulmonary Procedures Date of Procedure Date of Service: Aug 22, 2017 Reason for Intubation: Acute Respiratory Failure Time of Intubation: 13:09 Intubation Method: orotracheal Tube Size: 8 Medications: Propofol, Versed Positive End Tide CO2: Yes Breath Sounds after Intubation: bilateral-equal Intubation Complications: no complications Post Intubation Xray: Yes DIMAS RIOS DO Aug 22, 2017 13:09
--- NOTE | 2017-08-22 13:15 | Pulmonary Progress Note ---
Subjective Time Seen by Provider: 07:00 Subjective/Events-last exam PT is doing worse respiratory aldrich and appears to be failing BiPAP. PT is a full code. Exam Exam Vital Signs Date Time Temp Pulse Resp B/P (MAP) Pulse Ox O2 Delivery O2 Flow Rate FiO2 08/22/17 12:30 99.8 08/22/17 11:00 104 14 149/86 (107) 97 Mechanical Ventilator 50.00 08/22/17 10:58 99 14 100 50 08/22/17 10:00 110 9 143/71 (95) 98 Mechanical Ventilator 50.00 08/22/17 09:00 110 14 125/75 (92) 99 Mechanical Ventilator 50.00 08/22/17 08:25 Mechanical Ventilator 50.00 08/22/17 08:19 89 14 100 75 08/22/17 08:00 87 28 104/58 (73) 100 Mechanical Ventilator 75.00 08/22/17 07:30 Mechanical Ventilator 75.00 08/22/17 07:22 92 146/78 08/22/17 07:03 101 08/22/17 07:00 NIV Bilevel 100.00 08/22/17 07:00 93 25 138/95 (109) 94 NIV Bilevel 100.00 08/22/17 06:00 93 25 159/87 (111) 94 Vapotherm 45.00 40.00 08/22/17 05:20 99 Vapotherm 40.00 50 08/22/17 05:00 90 46 138/95 (109) 99 Vapotherm 45.00 40.00 08/22/17 04:00 97.0 08/22/17 04:00 90 22 141/85 (103) 98 Vapotherm 45.00 40.00 08/22/17 04:00 Vapotherm 40.00 50 08/22/17 03:51 99 Vapotherm 40.00 50 08/22/17 03:30 90 25 95 35.00 08/22/17 03:00 96 29 159/98 (118) 90 NIV Bilevel 45.00 08/22/17 02:23 82 19 96 35.00 08/22/17 02:00 86 16 121/82 (95) 100 NIV Bilevel 45.00 08/22/17 01:00 91 08/22/17 01:00 96 35 128/85 (99) 99 NIV Bilevel 45.00 08/22/17 00:26 78 23 99 35.00 08/22/17 00:21 88 23 100 35.00 08/22/17 00:00 96.9 08/22/17 00:00 NIV Bilevel 45 08/22/17 00:00 95 18 120/81 (94) 95 NIV Bilevel 45.00 08/21/17 23:00 92 19 108/87 (94) 95 NIV Bilevel 45.00 08/21/17 22:34 87 17 95 35.00 08/21/17 22:00 90 28 138/88 (105) 91 NIV Bilevel 45.00 08/21/17 21:29 81 15 97 35.00 08/21/17 21:27 80 17 96 35.00 08/21/17 21:00 81 16 102/73 (83) 94 NIV Bilevel 45.00 08/21/17 20:00 89 17 97/74 (82) 96 NIV Bilevel 45.00 08/21/17 20:00 NIV Bilevel 45 08/21/17 20:00 96.8 08/21/17 19:00 89 20 110/75 (87) 97 NIV Bilevel 45.00 08/21/17 19:00 87 08/21/17 18:38 96 18 95 35.00 08/21/17 18:00 89 17 101/65 (77) 97 NIV Bilevel 35.00 08/21/17 17:00 96 17 93/65 (74) 95 NIV Bilevel 35.00 08/21/17 16:27 101 21 100 35.00 08/21/17 16:00 92 16 98/70 (79) 99 NIV Bilevel 45.00 08/21/17 15:50 NIV Bilevel 45 08/21/17 15:50 98.4 08/21/17 15:00 101 16 92/73 (79) 98 NIV Bilevel 45.00 08/21/17 14:36 95 21 98 45.00 08/21/17 14:00 95 08/21/17 14:00 101 17 96/66 (76) 98 NIV Bilevel 45.00 I & O 08/22/17 07:00 Intake Total 1000 ml Output Total 675 ml Balance 325 ml General Appearance: Chronically ill, Severe Distress, Thin HEENT: PERRL/EOMI, Normal ENT Inspection, Pharynx Normal Neck: Full Range of Motion, Normal Inspection, Non Tender, Supple Respiratory: Chest Non Tender, Accessory Muscle Use, Crackles, Decreased Breath Sounds, Rales, Respiratory Distress, Wheezing Cardiovascular: No Edema, No Gallop, No JVD, No Murmur, Normal Peripheral Pulses, Tachycardia Capillary Refill: Less Than 3 Seconds Gastrointestinal: non tender, soft Extremity: Normal Capillary Refill, Normal Inspection, Normal Range of Motion, Non Tender, No Calf Tenderness, No Pedal Edema Neurologic/Psychiatric: Alert, Oriented x3, No Motor/Sensory Deficits, Normal Mood/Affect Skin: Normal Color, Warm/Dry Lymphatic: No Adenopathy Results Lab Laboratory Tests 08/20/17 15:44 08/21/17 05:11 Assessment/Plan Assessment/Plan COPDAE with acute on chronic respiratory failure -Noninvasive ventilation -- will proceed to mechanical ventilation -Pt will benefit from home vent to mask -SVNs -solumedrol -oxygen hx of tobacco use 233 Clinical Quality Measures DVT/VTE Risk/Contraindication: Risk Factor Score Per Nursin RFS Level Per Nursing on Admit: 4+=Very High DIMAS RIOS DO Aug 22, 2017 13:15
[2017-08-22] MEDS: ENOXAPARIN 40 MG/0.4 ML (LOVENOX) SYR SC SCH (13:43)
[2017-08-22 13:58] LABS: BASOPHILS % (AUTO) 0 % (0-10); EOSINOPHILS % (AUTO) 0 % (0-10); LYMPHOCYTES # (AUTO) 0.3 X 10^3 (1.0-4.0); LYMPHOCYTES % (AUTO) 2 % (12-44); MEAN CORPUSCULAR HEMOGLOBIN 29 PG (25-34); MEAN CORPUSCULAR HGB CONC 32 G/DL (32-36); MEAN CORPUSCULAR VOLUME 89 FL (80-99); MEAN PLATELET VOLUME 10.3 FL (7.4-10.4); MONOCYTES % (AUTO) 6 % (0-12); NEUTROPHILS # (AUTO) 14.2 X 10^3 (1.8-7.8); NEUTROPHILS % (AUTO) 92 % (42-75); PLATELET COUNT 226 10^3/uL (130-400); RED BLOOD COUNT 4.39 10^6/uL (4.35-5.85); RED CELL DISTRIBUTION WIDTH 13.6 % (10.0-14.5); WHITE BLOOD COUNT 15.5 10^3/uL (4.3-11.0)
[2017-08-22 14:15] LABS: ANION GAP 5 MMOL/L (5-14); BLOOD UREA NITROGEN 44 MG/DL (7-18); BUN/CREATININE RATIO 52; CALCIUM 8.2 MG/DL (8.5-10.1); CARBON DIOXIDE 28 MMOL/L (21-32); CHLORIDE 111 MMOL/L (98-107); CREATININE SERUM 0.85 MG/DL (0.60-1.30); GFR ESTIMATED > 60; GLUCOSE 121 MG/DL (70-105); MAGNESIUM 2.6 MG/DL (1.8-2.4); POTASSIUM 5.3 MMOL/L (3.6-5.0); SODIUM 144 MMOL/L (135-145)
[2017-08-22 14:47] LABS: BAND NEUTROPHILS 1 %; BASOPHILS % (MANUAL) 0 %; EOSINOPHILS % (MANUAL) 0 %; LYMPHOCYTES % (MANUAL) 3 %; NEUTROPHILS % (MANUAL) 92 %
[2017-08-22 15:42] LABS: BILIRUBIN,URINE NEGATIVE (NEGATIVE); KETONES,URINE NEGATIVE (NEGATIVE); LEUKOCYTE ESTERASE ,URINE NEGATIVE (NEGATIVE); NITRITE,URINE NEGATIVE (NEGATIVE); PH,URINE 6 (5-9); PROTEIN,URINE 2+ (NEGATIVE); UROBILINOGEN,URINE NORMAL (NORMAL)
[2017-08-22 15:59] LABS: URIC ACID CRYSTALS,URINE LARGE /LPF; WBC,URINE RARE /HPF
[2017-08-22] MEDS ORDERED: PIPERACILLIN/TAZOBACTAM 4.5 GM/NS 100 ML IV NR ×2 (16:15)
[2017-08-22 18:01] LABS: ABG BASE EXCESS -1.3 MMOL/L (-2.5-2.5); ABG HCO3 25 MMOL/L (23-27); ABG OXYGEN SATURATION 100 % (94-100); ABG PCO2 56 MMHG (35-45); ABG PO2 181 MMHG (79-93); ABG TCO2 26.6 MMOL/L (21.0-31.0)
[2017-08-22 18:03] LABS: ABG PH 7.27 (7.37-7.43); ALLENS TEST YES-POS
[2017-08-22 18:04] LABS: PATIENT TEMP 97.8
[2017-08-23] VITALS (23 sets, daily range): BP systolic 119–174; BP diastolic 61–96
[2017-08-23] MEDS: PIPERACILLIN SODIUM/TAZOBACTAM 4.5 GM in NS (IVPB) 100 ML IV SCH ×3 (00:01→14:08)
[2017-08-23] MEDS: NS IV 1000 ML 1,000 ML IV SCH ×2 (01:23→11:49)
[2017-08-23] MEDS: RT-ALBUTEROL/IPRATROPIUM 3 ML (DUONEB) VIAL INH SCH ×4 (01:45→14:34)
[2017-08-23] MEDS: DEXMEDETOMIDINE INJECTION 200 MCG in NS (IVPB) 50 ML IV SCH ×4 (02:38→15:58)
[2017-08-23] MEDS: methylPREDNISolone 40 MG/ML (Solu-MEDROL) VIAL IV SCH ×3 (02:41→14:08)
[2017-08-23 04:08] LABS: ABG BASE EXCESS -1.6 MMOL/L (-2.5-2.5); ABG HCO3 24 MMOL/L (23-27); ABG OXYGEN SATURATION 94 % (94-100); ABG PCO2 48 MMHG (35-45); ABG PO2 67 MMHG (79-93); ABG TCO2 25.1 MMOL/L (21.0-31.0)
[2017-08-23 04:12] LABS: ALLENS TEST YES-POS; PATIENT TEMP 98.9
[2017-08-23 04:13] LABS: ABG PH 7.32 (7.37-7.43)
[2017-08-23 04:32] LABS: MAGNESIUM 2.9 MG/DL (1.8-2.4); PHOSPHORUS 2.6 MG/DL (2.3-4.7)
[2017-08-23 05:03] LABS: BASOPHILS % (AUTO) 0 % (0-10); EOSINOPHILS % (AUTO) 0 % (0-10); LYMPHOCYTES # (AUTO) 0.2 X 10^3 (1.0-4.0); LYMPHOCYTES % (AUTO) 3 % (12-44); MEAN CORPUSCULAR HEMOGLOBIN 29 PG (25-34); MEAN CORPUSCULAR HGB CONC 33 G/DL (32-36); MEAN CORPUSCULAR VOLUME 88 FL (80-99); MEAN PLATELET VOLUME 10.8 FL (7.4-10.4); MONOCYTES # (AUTO) 0.4 X 10^3 (0.0-1.0); MONOCYTES % (AUTO) 8 % (0-12); NEUTROPHILS # (AUTO) 5.2 X 10^3 (1.8-7.8); NEUTROPHILS % (AUTO) 90 % (42-75); PLATELET COUNT 167 10^3/uL (130-400); RED BLOOD COUNT 3.91 10^6/uL (4.35-5.85); RED CELL DISTRIBUTION WIDTH 13.2 % (10.0-14.5); WHITE BLOOD COUNT 5.7 10^3/uL (4.3-11.0)
[2017-08-23 05:18] LABS: ANION GAP 13 MMOL/L (5-14); BLOOD UREA NITROGEN 51 MG/DL (7-18); BUN/CREATININE RATIO 57; CALCIUM 7.8 MG/DL (8.5-10.1); CARBON DIOXIDE 20 MMOL/L (21-32); CHLORIDE 112 MMOL/L (98-107); CREATININE SERUM 0.89 MG/DL (0.60-1.30); GFR ESTIMATED > 60; GLUCOSE 178 MG/DL (70-105); SODIUM 145 MMOL/L (135-145)
--- NOTE | 2017-08-23 05:31 | Pulmonary Progress Note ---
Subjective Time Seen by Provider: 05:30 Subjective/Events-last exam No complications noted. Pt is resting on vent. Exam Exam Vital Signs Date Time Temp Pulse Resp B/P (MAP) Pulse Ox O2 Delivery O2 Flow Rate FiO2 08/23/17 04:15 21 08/23/17 04:07 98.9 Mechanical Ventilator 21.00 08/23/17 04:00 62 19 133/78 (96) 100 Mechanical Ventilator 21.00 08/23/17 04:00 Mechanical Ventilator 25 08/23/17 03:40 63 18 100 21 08/23/17 03:00 69 19 133/79 (97) 100 Mechanical Ventilator 21.00 08/23/17 02:00 86 18 119/67 (84) 100 Mechanical Ventilator 21.00 08/23/17 02:00 Mechanical Ventilator 21.00 08/23/17 01:45 64 18 100 25 08/23/17 01:00 74 08/23/17 01:00 73 18 129/78 (95) 100 Mechanical Ventilator 25.00 08/23/17 00:25 97.4 Mechanical Ventilator 25.00 08/23/17 00:01 71 18 100 30 08/23/17 00:00 Mechanical Ventilator 25 08/23/17 00:00 71 18 122/73 (89) 100 Mechanical Ventilator 30.00 08/22/17 23:00 76 18 121/72 (88) 100 Mechanical Ventilator 30.00 08/22/17 22:19 98.4 102 18 111/70 99 Mechanical Ventilator 30.00 08/22/17 22:00 90 17 111/62 (78) 100 Mechanical Ventilator 30.00 08/22/17 21:13 Mechanical Ventilator 30.00 08/22/17 21:07 102 18 99 35 08/22/17 21:00 107 19 112/89 (97) 98 Mechanical Ventilator 35.00 08/22/17 20:00 91 18 113/66 (82) 98 Mechanical Ventilator 35.00 08/22/17 20:00 Mechanical Ventilator 35 08/22/17 19:46 98.4 Mechanical Ventilator 35.00 08/22/17 19:00 96 08/22/17 19:00 96 18 106/64 (78) 97 Mechanical Ventilator 35.00 08/22/17 18:30 Mechanical Ventilator 35.00 08/22/17 18:19 89 18 99 50 08/22/17 18:00 89 20 96/59 (71) 99 Mechanical Ventilator 50.00 08/22/17 17:00 92 18 91/63 (72) 100 Mechanical Ventilator 50.00 08/22/17 16:35 Mechanical Ventilator 50 08/22/17 16:10 97.8 Mechanical Ventilator 08/22/17 16:10 98 18 99 50 08/22/17 16:00 98 18 98/59 (72) 99 Mechanical Ventilator 50.00 08/22/17 15:00 110 18 97/65 (76) 98 Mechanical Ventilator 50.00 08/22/17 14:18 108 18 98 50 08/22/17 14:00 110 17 108/45 (66) 98 Mechanical Ventilator 50.00 08/22/17 13:17 112 130/80 08/22/17 13:00 107 15 128/87 (101) 98 Mechanical Ventilator 50.00 08/22/17 13:00 107 08/22/17 12:30 99.8 08/22/17 12:05 Mechanical Ventilator 50 08/22/17 12:00 96 14 119/67 (84) 98 Mechanical Ventilator 50.00 08/22/17 11:00 104 14 149/86 (107) 97 Mechanical Ventilator 50.00 08/22/17 10:58 99 14 100 50 08/22/17 10:00 110 9 143/71 (95) 98 Mechanical Ventilator 50.00 08/22/17 09:00 110 14 125/75 (92) 99 Mechanical Ventilator 50.00 08/22/17 08:25 Mechanical Ventilator 50.00 08/22/17 08:19 89 14 100 75 08/22/17 08:15 Mechanical Ventilator 75 08/22/17 08:00 87 28 104/58 (73) 100 Mechanical Ventilator 75.00 08/22/17 07:30 Mechanical Ventilator 75.00 08/22/17 07:22 92 146/78 08/22/17 07:03 101 08/22/17 07:00 NIV Bilevel 100.00 08/22/17 07:00 93 25 138/95 (109) 94 NIV Bilevel 100.00 08/22/17 06:00 93 25 159/87 (111) 94 Vapotherm 45.00 40.00 I & O 08/23/17 07:00 Intake Total 2152 ml Output Total 825 ml Balance 1327 ml General Appearance: Chronically ill, Moderate Distress, Thin HEENT: PERRL/EOMI, Normal ENT Inspection, Pharynx Normal Neck: Full Range of Motion, Normal Inspection, Non Tender, Supple Respiratory: Chest Non Tender, Accessory Muscle Use, Crackles, Decreased Breath Sounds, Rales, Respiratory Distress, Wheezing Cardiovascular: No Edema, No Gallop, No JVD, No Murmur, Normal Peripheral Pulses, Tachycardia Capillary Refill: Less Than 3 Seconds Gastrointestinal: non tender, soft Extremity: Normal Capillary Refill, Normal Inspection, Normal Range of Motion, Non Tender, No Calf Tenderness, No Pedal Edema Neurologic/Psychiatric: Alert, Oriented x3, No Motor/Sensory Deficits, Normal Mood/Affect Skin: Normal Color, Warm/Dry Lymphatic: No Adenopathy Results Lab Laboratory Tests 08/22/17 13:50 08/22/17 13:52 08/23/17 04:00 Assessment/Plan Assessment/Plan COPDAE with acute on chronic respiratory failure -Now vent dependent- will attempt vent weaning -wean Diprivan -Precedex -- continue -SVNs -solumedrol -oxygen hx of tobacco use -Quit smoking 4 mo ago OVerall poor prognosis. Pt has very severe COPD. 233 Clinical Quality Measures DVT/VTE Risk/Contraindication: Risk Factor Score Per Nursin RFS Level Per Nursing on Admit: 4+=Very High DIMAS RIOS DO Aug 23, 2017 05:31
[2017-08-23] MEDS ORDERED: KCL 20 MEQ TAB (K-DUR) PO SCH (06:00)
[2017-08-23] MEDS ORDERED: MAGNESIUM 1 GM/100 ML IVPB 100 ML IV SCH (06:00)
[2017-08-23] MEDS ORDERED: POTASSIUM CL 10MEQ/50ML IVPB 50 ML IV SCH (06:00)
[2017-08-23] MEDS: morphine INJ 4 MG/ML 1 ML (VIAL/SYRINGE) IVP PRN (06:08)
[2017-08-23] MEDS: LORazepam INJ 2 MG/ML (ATIVAN) VIAL IV PRN ×3 (06:33→16:08)
[2017-08-23] MEDS ORDERED: hydrALAZINE (APESOLINE) 20 MG/ML VIAL IV PRN (06:45)
[2017-08-23] MEDS: PROPOFOL DRIP (ICU) 100 ML IV SCH ×2 (06:52→13:46)
[2017-08-23] MEDS: RT-ADVAIR HFA 115/21 MCG PER PUFF IH SCH (07:00)
[2017-08-23] MEDS: RT-BUDESONIDE NEBS 0.5 MG/2ML (PULMICORT) AMP INH SCH (07:00)
--- NOTE | 2017-08-23 08:21 | Diagnostic Imaging Report ---
Portable upright radiograph of the chest. INDICATION: Respiratory failure. FINDINGS: ET tube and right internal jugular line are again noted without change. The NG tube is terminating in the proximal stomach. Advancing the NG tube by 5 cm is suggested. The lungs are hyperinflated. Chronic appearing interstitial thickening is also seen with no focal infiltrates. The heart size is normal. No effusion or pneumothorax. The mediastinum and juan francisco appear unremarkable. IMPRESSION: COPD. The NG tube is in the proximal stomach. Recommend advancing it by 5 CM. Dictated by: Dictated on workstation # [id number]
[2017-08-23] MEDS ORDERED: HALOPERIDOL 5 MG/ML (HALDOL) AMP IV SCH (09:00)
--- NOTE | 2017-08-23 11:15 | Progress Note-Hospitalist ---
Progress Note HPI/CC on Admission CC: Dyspnea HPI: This is a 62yoWM clinic patient of [facility] who is known to me from prior hospital stays in the past for AECOPD requiring either intubation or biPAP who stopped smoking a few months ago who presents to the ER w/c/o dyspnea. Pt reports feeling wheezy for a few days prior to presenting to the ER and began to feel worse and reported to the ER in acute respiratory failure. Pt was given 1 hour long Neb treatment with improved status and was admitted for IV steroids and pulmonary consultation. He is currently being transferred to the ICU due to decline in respiratory function and hypercapnia and hypoxia and will require biPAP. Progress Notes/Assess & Plan Date Seen 08/23/17 Time Seen by Provider: 10:30 Admission Dx/Process Assessment: Acute respiratory failure requiring transfer to ICU for biPAP and possible intubation Severe COPD with acute exacerbation Right above elbow amputee Previous smoker quit 4 months ago Neutropenia 3.5 today Diagonsis/Assessment & Plan Patient unable to be weaned and now referring to [facility] for [facility] vent Patient sedated because when sedation was DC he became very out of control Checked meds and labs Very poor prognosis overall due to the severity of his COPD and overall chronic debility AFVSS, cachectic, on vent, unresponsive Tachy 92 Diminished all blanco No edema Assessment: Acute respiratory failure requiring transfer to ICU for biPAP yesterday but failed and was intubated 2 days ago and expect machine long goods helper vent situation so referring to [facility] Severe COPD with acute exacerbation Right above elbow amputee Previous smoker quit 4 months ago Neutropenia Plan: Appreciate Dr Navarrete's help [facility] referral IV steroids Monitor closely MARYLOU DUNN DO Aug 23, 2017 11:15
[2017-08-23 13:29] LABS: ANION GAP 9 MMOL/L (5-14); BLOOD UREA NITROGEN 50 MG/DL (7-18); BUN/CREATININE RATIO 64; CALCIUM 7.7 MG/DL (8.5-10.1); CARBON DIOXIDE 24 MMOL/L (21-32); CHLORIDE 112 MMOL/L (98-107); CREATININE SERUM 0.78 MG/DL (0.60-1.30); GFR ESTIMATED > 60; GLUCOSE 129 MG/DL (70-105); POTASSIUM 3.4 MMOL/L (3.6-5.0); SODIUM 145 MMOL/L (135-145)
[2017-08-23] MEDS: POTASSIUM CL 10MEQ/50ML IVPB 50 ML IV SCH ×2 (14:07→15:15)
[2017-08-23] MEDS: ENOXAPARIN 40 MG/0.4 ML (LOVENOX) SYR SC SCH (14:07)
== END 2017-08-23 16:45 | DRG 208 ==
LOC: EDUNIT# 15:06 → ER 15:07 → 4TH 17:12 → ICU 08-21 11:30
PROVIDERS: ADMIT Internal Medicine; ATTEND Internal Medicine Critical Care Medicine
PROC: 5A1945Z Respiratory Ventilation, 24-96 Consecutive Hours (ICD-10-PCS; principal; 2017-08-22)
DX: J96.22 Acute and chronic respiratory failure with hypercapnia (principal); J96.21 Acute and chronic respiratory failure with hypoxia; J44.1 Chronic obstructive pulmonary disease with (acute) exacerbation; J45.901 Unspecified asthma with (acute) exacerbation; R64 Cachexia; D70.9 Neutropenia, unspecified; I10 Essential (primary) hypertension; G62.9 Polyneuropathy, unspecified; F43.10 Post-traumatic stress disorder, unspecified; Z87.891 Personal history of nicotine dependence; Z89.221 Acquired absence of right upper limb above elbow; Z87.01 Personal history of pneumonia (recurrent)
CPT/HCPCS: 36415; 71010; 71020; 80048; 80053; 81000; 82805; 83605; 83735; 84100; 85007; 85025; 85027; 85610; 85730; 87040; 87070; 87205; 94002; 94003; 94640; 94644; 94660; 94799; 96374

== ENCOUNTER 2019-04-17 16:44 | Emergency (ER) | payer MEDICARE ==
[~2019-04-17] VITALS: Ht 180.3 cm; Wt 49.0 kg
[~2019-04-17 16:44] MED LIST changes: +ALBU2.5V4 IH; +GABA800T10 PO; -GABA800T2 PO
[2019-04-17 17:04] LABS: BASOPHILS % (AUTO) 0 % (0-10); EOSINOPHILS % (AUTO) 0 % (0-10); HEMATOCRIT 46 % (40-54); HEMOGLOBIN 14.9 G/DL (13.3-17.7); LYMPHOCYTES # (AUTO) 0.3 X 10^3 (1.0-4.0); LYMPHOCYTES % (AUTO) 4 % (12-44); MEAN CORPUSCULAR HEMOGLOBIN 29 PG (25-34); MEAN CORPUSCULAR HGB CONC 32 G/DL (32-36); MEAN CORPUSCULAR VOLUME 88 FL (80-99); MEAN PLATELET VOLUME 9.3 FL (7.4-10.4); MONOCYTES # (AUTO) 0.1 X 10^3 (0.0-1.0); MONOCYTES % (AUTO) 1 % (0-12); NEUTROPHILS # (AUTO) 6.4 X 10^3 (1.8-7.8); NEUTROPHILS % (AUTO) 95 % (42-75); PLATELET COUNT 346 10^3/uL (130-400); RED CELL DISTRIBUTION WIDTH 13.8 % (10.0-14.5); WHITE BLOOD COUNT 6.7 10^3/uL (4.3-11.0)
--- NOTE | 2019-04-17 17:05 | ED Cough/URI ---
General Chief Complaint: Respiratory Problems Stated Complaint: SOB Nursing Triage Note: Patient brought to ER via stretcher by [facility]. Patient is GARCIA x4. Patient states he has had increased shortness of breath since this morning. He was seen at [facility] ER today by Veronica Whaley NP and discharged home. Patient states he is not improving and wants to be admitted to the hospital. EMS state the patient is transported frequently for shortness of breath over the last several months. Patient was given a Duoneb by EMS prior to arrival. Patient wears oxygen at home at 4 LPM via NC. Sepsis Screen: No Definite Risk Source: patient Exam Limitations: no limitations History of Present Illness Date Seen by Provider: Apr 17, 2019 Time Seen by Provider: 17:03 Initial Comments To ER per EMS from home with reports of shortness of breath.. Patient was seen by [facility] emergency room this morning for the same symptoms, given Solu-Medrol IV. He wears oxygen at 4 L [id number] per nasal cannula at home. EMS reports that at 3 L he is 98%. He called EMS again this evening because of failure to improved since this morning. He has a nebulizer sufficient supply of DuoNeb at home. Advised EMS he would like to be admitted. Timing/Duration: just prior to arrival Severity/Quality: moderate Associated Symptoms: cough, shortness of breath Allergies and Home Medications Allergies Coded Allergies: No Known Drug Allergies (Verified , 03/14/17) Home Medications Albuterol Sulfate 1 Puff Puff, 2 PUFF IH Q4H PRN for SHORTNESS OF BREATH, (Reported) 1 PUFF = 90 MCG Albuterol Sulfate 2.5 Mg/3 Ml Vial.neb, 2.5 MG IH TID PRN for SHORTNESS OF BREATH, (Reported) Ipratropium/Albuterol Sulfate 3 Ml Ampul.neb, 3 ML IH Q6H PRN for SHORTNESS OF BREATH, (Reported) Prednisone 20 Mg Tab, 25 MG PO DAILY, (Reported) Patient Home Medication List Home Medication List Reviewed: Yes Review of Systems Review of Systems Constitutional: see HPI EENTM: see HPI Respiratory: see HPI, cough, short of breath, wheezing Cardiovascular: no symptoms reported Genitourinary: no symptoms reported Musculoskeletal: no symptoms reported Skin: no symptoms reported Psychiatric/Neurological: No Symptoms Reported Hematologic/Lymphatic: No Symptoms Reported Past Qnnjkuw-Qkhjxu-Zlbpcl Hx Patient Social History Type Used: Cigarettes Former Smoker, Quit: Apr 02, 2017 2nd Hand Smoke Exposure: No Recent Foreign Travel: No Contact w/Someone Who Travel: No Recent Infectious Disease Expo: No Recent Hopitalizations: No Physical Abuse: No Sexual Abuse: No Mistreated: No Fear: No Immunizations Up To Date Tetanus Booster (TDap): Unknown Date of Pneumonia Vaccine: Jun 14, 2016 Date of Influenza Vaccine: Jun 02, 2017 Seasonal Allergies Seasonal Allergies: No Past Medical History Surgeries: Yes Orthopedic Respiratory: Yes (Uses Oxygen at 4 LPM via NC at home) COPD Currently Using CPAP: No Currently Using BIPAP: No Cardiac: Yes Hypertension Neurological: Yes Neuropathy Reproductive Disorders: No Sexually Transmitted Disease: No HIV/AIDS: No Genitourinary: No Gastrointestinal: No Musculoskeletal: Yes (RIGHT ABOVE ELBOW AMPUTEE) Amputee Endocrine: No HEENT: No Cancer: No Psychosocial: No PTSD Integumentary: No Blood Disorders: No Adverse Reaction/Blood Tranf: No Family Medical History Alzheimer's disease 19 MOTHER Asthma 19 MOTHER No Pertinent Family Hx Physical Exam Vital Signs - First Documented 04/17/19 16:44 Temp 98.2 Pulse 102 Resp 26 B/P (MAP) 107/74 (85) Pulse Ox 99 O2 Delivery Nasal Cannula O2 Flow Rate 4.00 Capillary Refill : Less Than 3 Seconds Height: 5'11.00" Weight: 108lbs. 5.0oz. 48.687602ik; 15.3 BMI Method:Stated General Appearance: WD/WN, no apparent distress, thin, other (No distress, speaks in full sentences, does have a productive cough. 98% on 3 L.) Eyes: Bilateral Eye Normal Inspection, Bilateral Eye PERRL, Bilateral Eye EOMI HEENT: PERRL/EOMI, normal ENT inspection Respiratory: no respiratory distress, no accessory muscle use, decreased breath sounds, wheezing Gastrointestinal: normal bowel sounds, non tender, soft Neurologic/Psychiatric: alert, normal mood/affect, oriented x 3 Skin: normal color, warm/dry, other (he is not wearing socks or shoes, feet are stained brown.) Procedures/Interventions Date of ETT Placement: Apr 27, 2018 Time of ETT Placement: 1344 Progress/Results/Core Measures Suspected Sepsis Recent Fever Within 48 Hours: No Infection Criteria Present: None New/Unexplained Altered Menta: No Sepsis Screen: No Definite Risk SIRS Temperature:98.2 Pulse: 102 Respiratory Rate: 26 Laboratory Tests 04/17/19 16:50: White Blood Count 6.7 Blood Pressure 107 /74 Mean: 85 Laboratory Tests 04/17/19 16:50: Creatinine 0.79, Platelet Count 346, Total Bilirubin 0.3 Results/Orders Lab Results Laboratory Tests Test 04/17/19 16:50 04/17/19 17:17 Range/Units White Blood Count 6.7 4.3-11.0 10^3/uL Red Blood Count 5.21 4.35-5.85 10^6/uL Hemoglobin 14.9 13.3-17.7 G/DL Hematocrit 46 40-54 % Mean Corpuscular Volume 88 80-99 FL Mean Corpuscular Hemoglobin 29 25-34 PG Mean Corpuscular Hemoglobin Concent 32 32-36 G/DL Red Cell Distribution Width 13.8 10.0-14.5 % Platelet Count 346 130-400 10^3/uL Mean Platelet Volume 9.3 7.4-10.4 FL Neutrophils (%) (Auto) 95 H 42-75 % Lymphocytes (%) (Auto) 4 L 12-44 % Monocytes (%) (Auto) 1 0-12 % Eosinophils (%) (Auto) 0 0-10 % Basophils (%) (Auto) 0 0-10 % Neutrophils # (Auto) 6.4 1.8-7.8 X 10^3 Lymphocytes # (Auto) 0.3 L 1.0-4.0 X 10^3 Monocytes # (Auto) 0.1 0.0-1.0 X 10^3 Eosinophils # (Auto) 0.0 0.0-0.3 10^3/uL Basophils # (Auto) 0.0 0.0-0.1 10^3/uL Neutrophils % (Manual) 92 % Lymphocytes % (Manual) 4 % Monocytes % (Manual) 4 % Blood Morphology Comment NORMAL Sodium Level 143 135-145 MMOL/L Potassium Level 4.7 3.6-5.0 MMOL/L Chloride Level 98 98-107 MMOL/L Carbon Dioxide Level 38 H 21-32 MMOL/L Anion Gap 7 5-14 MMOL/L Blood Urea Nitrogen 17 7-18 MG/DL Creatinine 0.79 0.60-1.30 MG/DL Estimat Glomerular Filtration Rate > 60 BUN/Creatinine Ratio 22 Glucose Level 122 H 70-105 MG/DL Calcium Level 10.0 8.5-10.1 MG/DL Corrected Calcium 9.7 8.5-10.1 MG/DL Total Bilirubin 0.3 0.1-1.0 MG/DL Aspartate Amino Transf (AST/SGOT) 16 5-34 U/L Alanine Aminotransferase (ALT/SGPT) 23 0-55 U/L Alkaline Phosphatase 59 40-136 U/L B-Type Natriuretic Peptide 21.8 <100.0 PG/ML Total Protein 7.7 6.4-8.2 GM/DL Albumin 4.4 3.2-4.5 GM/DL Blood Gas Puncture Site LT RAD Blood Gas Patient Temperature 98.2 Arterial Blood pH 7.40 7.37-7.43 Arterial Blood Partial Pressure CO2 55 H 35-45 MMHG Arterial Blood Partial Pressure O2 119 H 79-93 MMHG Arterial Blood HCO3 33 H 23-27 MMOL/L Arterial Blood Total CO2 34.8 H 21.0-31.0 MMOL/L Arterial Blood Oxygen Saturation 99 94-100 % Arterial Blood Base Excess 8.2 H -2.5-2.5 MMOL/L Last Test YES-POS Blood Gas Ventilator Setting NO Blood Gas Inspired Oxygen 4L My Orders Orders - PRICILLA OLSEN [employer] Cbc With Automated Diff (04/17/19 16:50) Comprehensive Metabolic Panel (04/17/19 16:50) Chest 1 View, Ap/Pa Only (04/17/19 16:50) Ekg Tracing (04/17/19 16:50) BNP (04/17/19 16:50) Albuterol/Ipra Inhalation Soln (Duoneb I (04/17/19 17:15) Svn Small Volume Nebulizer (04/17/19 17:05) Manual Differential (04/17/19 16:50) Arterial Blood Gas (04/17/19 17:20) Prednisone Tablet (Deltasone Tablet) (04/17/19 18:00) Azithromycin Tablet (Zithromax Tablet) (04/17/19 18:00) Medications Given in ED Current Medications Medications Dose Ordered Sig/Selena Route Start Time Stop Time Status Last Admin Dose Admin Albuterol/ Ipratropium 3 ml ONCE ONCE INH 04/17/19 17:15 04/17/19 17:16 DC 04/17/19 17:32 3 ML Vital Signs/I&O 04/17/19 04/17/19 16:44 17:33 Temp 98.2 Pulse 102 Resp 26 B/P (MAP) 107/74 (85) Pulse Ox 99 95 O2 Delivery Nasal Cannula Nasal Cannula O2 Flow Rate 4.00 3.00 Capillary Refill : Less Than 3 Seconds Blood Pressure Mean: 85 Departure Impression Primary Impression: COPD exacerbation Disposition: HOME, SELF-CARE Condition: Stable Departure-Patient Inst. Decision time for Depature: 17:49 Referrals: [facility] [place]Family) Primary Care Physician Patient Instructions: Exacerbation of COPD Add. Discharge Instructions: 1. Antibiotics as directed 2. Follow-up with your doctor next week 3. All discharge instructions reviewed with patient and/or family. Voiced und erstanding. Scripts Azithromycin (Azithromycin) 250 Mg Tablet 250 MG PO DAILY, #4 TAB 0 Refills Prov: PRICILLA OLSEN APRN 04/17/19 PRICILLA OLSEN APRN Apr 17, 2019 17:05
[2019-04-17] MEDS ORDERED: RT-ALBUTEROL/IPRATROPIUM 3 ML (DUONEB) VIAL INH ONE (17:15)
--- NOTE | 2019-04-17 17:19 | NUR ---
ABG drawn by Veronica MONTANEZ in patient's right radial artery x 1 attempt. ABG sent to lab.
[2019-04-17 17:24] LABS: ALANINE AMINOTRANSFERASE 23 U/L (0-55); ALBUMIN 4.4 GM/DL (3.2-4.5); ALKALINE PHOSPHATASE 59 U/L (40-136); BILIRUBIN,TOTAL 0.3 MG/DL (0.1-1.0); BUN/CREATININE RATIO 22; CARBON DIOXIDE 38 MMOL/L (21-32); CHLORIDE 98 MMOL/L (98-107); CREATININE SERUM 0.79 MG/DL (0.60-1.30); GFR ESTIMATED > 60; GLUCOSE 122 MG/DL (70-105); POTASSIUM 4.7 MMOL/L (3.6-5.0); SODIUM 143 MMOL/L (135-145); TOTAL PROTEIN 7.7 GM/DL (6.4-8.2)
[2019-04-17 17:28] LABS: ABG BASE EXCESS 8.2 MMOL/L (-2.5-2.5); ABG OXYGEN SATURATION 99 % (94-100); ABG PCO2 55 MMHG (35-45); ABG PO2 119 MMHG (79-93); ABG TCO2 34.8 MMOL/L (21.0-31.0)
[2019-04-17] MEDS ORDERED: PRD20T PO (17:29)
[2019-04-17 17:30] LABS: ALLENS TEST YES-POS; INSPIRED O2 4L; PATIENT TEMP 98.2; VENTILATOR NO
[2019-04-17] MEDS ORDERED: IPRA3AMP31 IH (17:30)
[2019-04-17 17:32] LABS: LYMPHOCYTES % (MANUAL) 4 %; MONOCYTES % (MANUAL) 4 %; NEUTROPHILS % (MANUAL) 92 %
[2019-04-17 17:33] LABS: RBC MORPH NORMAL
--- NOTE | 2019-04-17 17:46 | Diagnostic Imaging Report ---
INDICATION: Cough. COMPARISON: 04/27/2018. FINDINGS: Single view of the chest demonstrates hyperinflation compatible with COPD. There is no acute infiltrate, pneumothorax, or effusion. The heart is normal. Osseous structures are age appropriate. There has been prior amputation of the right distal humerus. IMPRESSION: COPD without acute infiltrate. Dictated by: Dictated on workstation # [id number]
[2019-04-17] MEDS ORDERED: AZIT250T12 PO (17:50)
[2019-04-17] MEDS ORDERED: AZITHROMYCIN 250 MG TAB (ZITHROMAX) PO SCH (18:00)
[2019-04-17] MEDS ORDERED: predniSONE 20 MG TAB PO ONE (18:00)
[2019-04-17 18:26] VITALS: BP 117/73
--- NOTE | 2019-04-17 18:28 | NUR ---
Patient waiting on a ride. He states his step son is enroute to pick him up. Patient left in room due to being on oxygen via nasal cannula at 4 LPM.
--- NOTE | 2019-04-17 19:48 | NUR ---
PT FAMILY HERE AT THIS TIME TO TAKE HIM HOME.
== END 2019-04-17 19:54 | disposition home or self-care (01) ==
LOC: EDUNIT# 16:44 → ER 16:45
DX: J44.1 Chronic obstructive pulmonary disease with (acute) exacerbation (principal); I10 Essential (primary) hypertension; G62.9 Polyneuropathy, unspecified; F43.10 Post-traumatic stress disorder, unspecified; Z89.221 Acquired absence of right upper limb above elbow; Z99.81 Dependence on supplemental oxygen; Z87.891 Personal history of nicotine dependence
CPT/HCPCS: 36415; 71045; 80053; 82805; 83880; 85007; 85027; 93005; 94640

== ENCOUNTER 2019-04-17 23:18 | Inpatient (IN) | payer MEDICARE | END 2019-04-25 14:14 | disposition hospice, inpatient (51) | LOC: ICU 04-18 00:01 → ER 23:18 → 4TH 04-18 15:00 | DX: J96.20 Acute and chronic respiratory failure, unspecified whether with hypoxia or hypercapnia (principal); J44.1 Chronic obstructive pulmonary disease with (acute) exacerbation; R64 Cachexia; J30.9 Allergic rhinitis, unspecified; R45.1 Restlessness and agitation; I10 Essential (primary) hypertension; G62.9 Polyneuropathy, unspecified; F41.9 Anxiety disorder, unspecified; F43.10 Post-traumatic stress disorder, unspecified; Z99.81 Dependence on supplemental oxygen; Z91.19 Patient's noncompliance with other medical treatment and regimen; Z87.891 Personal history of nicotine dependence; Z89.221 Acquired absence of right upper limb above elbow; Z72.821 Inadequate sleep hygiene ==